=== PATIENT | male | born 1975 | race Caucasian/White ===

== ENCOUNTER 2020-12-26 12:50 | Inpatient (IN) | payer OTHER, SELFPAY ==
[2020-12-26] VITALS (8 sets, daily range): BP systolic 132–153; BP diastolic 103–116; PULSE 84–140; RESP 16–44; TEMP 36.4–37.7; O2SAT 86–94; BMI 36.7
--- NOTE | 2020-12-26 | FLU_PTH ---
PATIENT: RANDELL FULLER LOC: MS2 U#:[id number] AGE/SX: 45/M ROOM: [facility] [place] RE12/26/[address]: Dr. Ar Reilly MD : 1975 BED: 1 DIS: 01/07/2021 SPEC #: [id number] RECD: 12/27/20 11:40 STATUS: PEDRITO HENRY #: [id number] KEVYN: 12/26/20 00:[address]: Ar Reilly DEPT: CYTOLOGY RECD BY: Isaac Aj Tissues: Kidney, NOS Procedures: Special Stain Group II Surgery Specimen Level IV Cytospin Fluid HEADER OPERATION: Not noted PRE-OP DIAGNOSIS: Infected renal mass TISSUE SUBMITTED: Kidney fluid for cytology DIAGNOSIS CYTOLOGY Kidney fluid for cytology (cytospin and cell block): Negative for malignant cells. Bloody specimen. See comment. JAQUAN:hector 12/28/2020 COMMENT Viable cells are not identified. Correlation with clinical, radiologic findings and appropriate follow up are necessary. CYTOLOGY STUDY Slides are reviewed. CYTOLOGY GROSS Received is 55 ml of dark red cloudy fluid labeled with the patient's name and and designated per the requisition as Kidney. Submitted for cytology preparation including cell block. / hector 12/27/2020 TC:5 CPT: 30581, 07391
--- NOTE | 2020-12-26 11:51 | PCS.PANDOC ---
PANDEMIC DOCUMENTATION INITIATED: Date: 10/09/2020 Time: 190
[2020-12-26] MEDS: 0.9% Saline Lock 10 ML Syringe IV ×3 (12:36→21:02)
[2020-12-26] MEDS: Morphine 2 MG/ML Syringe IV ×5 (12:36→23:08)
--- NOTE | 2020-12-26 12:52 | PCM.HP.STD ---
HPI - General General Date of Admission: 12/26/20 HPI Narrative 45-year-old male who presents with severe right upper quadrant pain structure CT scan was done that demonstrates a very large cystic putting pressure on the kidney and the liver. On palpation of his abdomen he is got pain right where that cyst is. Does have a very high elevated white blood count was in extreme pain this morning. He was admitted to the hospital for further management regarding this. cystic mass [facility] Medical History (Updated 12/26/20 @ 12:[address] Ar Reilly MD) Migraines Home Medications NK 12/26/20 [History Last Taken Unknown] Allergy/AdvReac Type Severity Reaction Status Date / Time No Known Allergies Allergy Verified 12/26/20 11:50 Social History Smoking Status: Never smoker ROS Constitutional Constitutional: Denies chills, fever(s) or malaise Eyes Eyes: Denies blurry vision or change in vision ENT HEENT: Reports none Cardiovascular Cardiovascular: Denies chest pain or palpitations Respiratory/Chest Respiratory/Chest: Denies cough or shortness of breath with exertion Gastrointestinal Gastrointestinal: Denies abdominal pain, constipation or diarrhea Musculoskeletal Musculoskeletal: Denies back pain, joint stiffness or joint swelling Integumentary Integumentary: Denies dry skin, jaundice, lesions or rash Neurologic Neurologic: Denies confusion, syncope or weakness Psychiatric Psychiatric: Reports none; Denies anxiety or depression Endocrine Endocrinology: Denies excessive sweating, fatigue or flushing Hematologic/Lymphatic Hematologic/Lymphatic: Denies anemia, easy bleeding or easy bruising Vital Signs Vital Signs Vital Signs: 12/26/20 11:59 Temperature 97.6 F L Temperature Source Oral Pulse Rate 84 Respiratory Rate 16 Blood Pressure 132/106 H Blood Pressure Mean 114 Blood Pressure Source Monitor Blood Pressure Position Semi-Fowlers Blood Pressure Location Left Arm Pulse Ox 94 Oxygen Delivery Method Room Air Weight Weight: 116.12 kg Body Mass Index (BMI) 36.7 Physical Exam Const alert and oriented x3 General Appearance: cooperative HEENT normocephalic, head/scalp atraumatic, EAC's normal and TM's normal bilaterally Eyes PERRL and EOMs intact bilaterally Pupil: sluggish Neck no lymphadenopathy, supple and no JVD General: trachea midline Lymph Lymphatic: no lymphadenopathy noted, lymphedema and lymphadenopathy Resp normal respiratory effort, normal air movement and clear to auscultation bilaterally Cardio regular rate, regular rhythm and peripheral pulses 2+ throughout GI soft to palpation and non-distended GI Narrative: Pain on palpation to the right abdomen Extremity normal capillary refill and no clubbing, cyanosis or edema General Extremity: no tenderness to palpation of joints or extremities Skin no rashes or lesions noted General Skin Exam: turgor normal Lesions: no lesions Rashes: no rashes Neuro CN's II-XII intact bilaterally Speech: speech normal Motor Exam: strength 5/5 throughout; Negative for general weakness Psych thought process normal, cooperative and affect normal Appearance: appropriate Assessment & Plan Assessment/Plan (1) Cystic kidney disease: PLAN: Plan is to keep him n.p.o. he will go for procedure today for interventional radiology for a CT-guided drainage of this large cystic mass in his right kidney to me this appears to be a benign cyst. We will send the urine from that mass for cytology and culture. And then once we get this mass decompressed with drainage and I have asked the radiology to place a pigtail catheter in it then we can always plan for surgical removal of this mass in a different setting. N.p.o. for procedure he can have regular diet after procedures done possible he may need to have the procedure done tomorrow if radiology is not available.
[2020-12-26 14:17] LABS: Hemoglobin 13.5 g/dL (13.0-16.5); Mean Corp Hgb Conc 32.9 g/dL (32-36); Mean Corpuscular Hgb 27.5 pg (27.0-32.0); Mean Corpuscular Volume 83.5 fL (80-94); Mean Platelet Vol. 10.7 fl (6.2-12.0); Platelet Count 234 K/mm3 (150-450); RBC Distribution Width CV 14.6 % (11.6-14.6); RBC Distribution Width SD 44.3 fl (35.1-43.9); Red Blood Count 4.91 M/mm3 (4.6-6.2); White Blood Count 27.2 K/mm3 (4.4-11.0)
[2020-12-26 14:30] LABS: International Normalized Ratio 1.6; Prothrombin Time (Protime)PT. 18.1 SECONDS (11.7-14.9)
[2020-12-26 14:36] LABS: Anion Gap 6 (5-15); BUN 25 mg/dL (7-18); BUN/Creat Ratio 14.5 RATIO (10-20); Calcium,Total 8.2 mg/dL (8.5-10.1); Chloride 109 mmol/L (98-107); Creatinine, Serum 1.73 mg/dL (0.70-1.30); EST Glomerular Filtration Rate 45 mL/min (>60); Est Glom Filt Rate - Afr Amer 55 mL/min (>60); Estimated Creatinine Clearance 55.09 ml/min; Glucose 173 mg/dL (74-106); Potassium 3.6 mmol/L (3.5-5.1); Sodium Level 138 mmol/L (136-145)
[2020-12-26] MEDS: 0.9% Normal Saline 1,000 ML 125 ML IV ×2 (15:31→23:54)
[2020-12-26] MEDS: Ceftriaxone 1 GM/50 ML BAG IV (21:54)
[2020-12-26] MEDS: Acetaminophen 500 MG Tablet PO (22:53)
[2020-12-26 23:16] LABS: Lactic Acid 3.5 mmol/L (0.4-1.9)
--- NOTE | 2020-12-26 23:26 | NURSING ---
DR FRIEND CALLED AND NOTIFIED OF THE PTS VS 153/116, 139, 94% ON 4L, 99.6, RESP 40, VERY SHALLOW ONLY ABLE TO GET THE IS UP TO 200, LUNGS DIMINISHED OCCATIONAL EXP WHEEZE. PT IS RATING HIS PAIN A 7/10, MORPHINE GIVEN WITH NO RESULTS, TYLENOL 500MG GIVEN. LACTIC 3.5, DR ORDERED TO GIVE DILAUDID FOR PAIN. DR DID NOT WANT THE HOSPITALIST CONSULTED, NO TELE ORDERED.
--- NOTE | 2020-12-26 23:37 | NURSING ---
DR FRIEND CALLED BACK AND NOW IS COMING IN TO DO THE CT RIGHT NOW, CT CALLED, INSURANCE ACCOUNT SPECIALIST CALLED.
--- NOTE | 2020-12-26 23:47 | PCM.PN.GU ---
Subjective Subjective pt presented with an infected renal cyst v large on outside CT scan on admission I requested a CT drainage of the cysts from radiology at noon, I spoke to head of radiology and told him it was stat and ordered stat. He said he was very busy and then later nurse called me and said it was scheduled for tomorrow at 8am, this eving the patient is now septic, tachycardia, we have started antibitoics with rocephin, he is on oxygen, plan for immediate intervention, will take the pateint myself to radiology to place a drain in kindey and nephrostomy tube as I don't think I should wait till the morning when radiology comes in. Objective Data Objective Data Vital Signs: Vital Signs Temp Pulse Resp BP Pulse Ox 99.5 F H 140 H 40 H 153/116 H 94 12/26/20 23:39 12/26/20 23:40 12/26/20 23:40 12/26/20 23:39 12/26/20 23:40 Oxygen Flow Rate (L/min) 4 Oxygen Delivery Method Nasal Cannula Weight: 116.12 kg Body Mass Index (BMI) 36.7 Intake & Output: Intake and Output for Last 24 Hours 12/24/20 12/25/20 12/26/20 23:59 23:59 23:59 Intake Total 70 / 70 Output Total 125 / 125 Balance -55 / -55 Lab / Micro Data Result Diagrams: 12/26/20 14:06 12/26/20 14:06 Labs: Laboratory Results - last 24 hr 12/26/20 14:06: WBC 27.2 H, RBC 4.91, Hgb 13.5, Hct 41.0, MCV 83.5, MCH 27.5, MCHC 32.9, RDW Std Deviation 44.3 H, RDW Coeff of Colin 14.6, Plt Count 234, MPV 10.7 12/26/20 14:06: PT 18.1 H, INR 1.6 12/26/20 14:06: Sodium 138, Potassium 3.6, Chloride 109 H, Carbon Dioxide 23.0, Anion Gap 6, BUN 25 H, Creatinine 1.73 H, Estim Creat Clear Calc 55.09, Est GFR (MDRD) Af Amer 55 L, Est GFR (MDRD) Non-Af 45 L, BUN/Creatinine Ratio 14.5, Glucose 173 H, Calcium 8.2 L 12/26/20 22:16: Lactic Acid 3.5 H* Physical Exam Const alert and oriented x3 General Appearance: cooperative HEENT normocephalic, head/scalp atraumatic, EAC's normal and TM's normal bilaterally Eyes PERRL and EOMs intact bilaterally Pupil: sluggish Neck no lymphadenopathy, supple and no JVD General: trachea midline Lymph Lymphatic: no lymphadenopathy noted, lymphedema and lymphadenopathy Resp normal respiratory effort, normal air movement and clear to auscultation bilaterally Cardio regular rate, regular rhythm and peripheral pulses 2+ throughout GI soft to palpation, non-tender and non-distended Extremity normal capillary refill and no clubbing, cyanosis or edema General Extremity: no tenderness to palpation of joints or extremities Skin no rashes or lesions noted General Skin Exam: turgor normal Lesions: no lesions Rashes: no rashes Neuro CN's II-XII intact bilaterally Speech: speech normal Motor Exam: strength 5/5 throughout; Negative for general weakness Psych thought process normal, cooperative and affect normal Appearance: appropriate Assessment & Plan Assessment/Plan (1) Cystic kidney disease: PLAN: plan for CT guided drainage stat now in interventional radiology. (2) Sepsis: PLAN: blood culture and urine cultures drawn, on broadspectrum antibiotics hemodynamical hyperdyanamic but stable.
[2020-12-26] MEDS: Lidocaine 1% (20 ml mdv) 20 ML Vial INFILT (23:54)
[2020-12-26] MEDS: HYDROmorphone 1 MG/ML Syringe IV (23:56)
[2020-12-27] VITALS (20 sets, daily range): BP systolic 103–165; BP diastolic 62–100; PULSE 99–133; RESP 16–28; TEMP 36.5–38.4; O2SAT 4–96
--- NOTE | 2020-12-27 01:00 | OP.PCM_ITS ---
Report of Operation Date of Procedure: 12/27/20 Pre-Operative Diagnosis: Large right cystic mass Post-Operative Diagnosis: Large right cystic mass Surgery/Procedure Performed:: CT-guided placement of nephrostomy tube and drainage of fluid from mass Description of Surgical Findings:: Patient was taken down to the CAT scan department he was placed supine on the CAT scan table we then did a CAT scan to look at the kidney I used fluoroscopic markers I then identified the marker that would go down to drain this large fluid mass he been having difficulty with breathing and's extreme pain on the right side I then used a 18-gauge Chiba n eedle advanced to down and then got into the mass and immediately drained brownish-like fluid from the cystic mass appeared to be old hemosiderin probably an old bleeding into the cyst card because a large cyst I drained almost a liter and then left the nephrostomy tube in the fluid pocket and will leave this to gravity drainage. He has a very high white blood count appears septic we did start on antibiotics just drained the fluid will send it for culture. Patient tolerated procedure well. Surgeon: miguel Type of Anesthesia: General Drains: 8 fr nephrostomy tube Admit VTE Documentation VTE Present on Admission: No VTE Mechan Device Prophylaxis: SCD's
[2020-12-27] MEDS: HYDROmorphone 1 MG/ML Syringe IV ×7 (01:10→18:30)
[2020-12-27 02:26] LABS: Reflex Lactate? Y
[2020-12-27 03:02] LABS: Absolute Lymphocyte Count 0.46 X10^3/uL (0.83-4.51); Absolute Neutrophil Count 23.1 X10^3/uL (2.0-7.7); Basophil# 0.18 X10^3/uL; Basophil% 0.7 % (0-1); Hematocrit 44.4 % (40-54); Hemoglobin 14.1 g/dL (13.0-16.5); Lymphocyte # 0.46 X10^3/ul (0.83-4.51); Lymphocyte % 1.7 % (19-41); Mean Corp Hgb Conc 31.8 g/dL (32-36); Mean Corpuscular Hgb 27.4 pg (27.0-32.0); Mean Corpuscular Volume 86.4 fL (80-94); Mean Platelet Vol. 10.9 fl (6.2-12.0); Monocyte# 1.82 X10^3/uL; Monocyte% 6.8 % (0-10); NRBC Flagged by Analyzer 0 % (0-5); Neutrophil # 23.05 X10^3/uL (2.7-7.7); Neutrophil % 86.4 % (47-70); POSITIVE DIFFERENTIAL YES; POSITIVE MORPHOLOGY YES; Platelet Count 231 K/mm3 (150-450); RBC Distribution Width CV 15.1 % (11.6-14.6); RBC Distribution Width SD 47.9 fl (35.1-43.9); Red Blood Count 5.14 M/mm3 (4.6-6.2); White Blood Count 26.7 K/mm3 (4.4-11.0)
[2020-12-27 03:36] LABS: Anion Gap 10 (5-15); BUN 40 mg/dL (7-18); BUN/Creat Ratio 18.4 RATIO (10-20); Calcium,Total 7.6 mg/dL (8.5-10.1); Chloride 112 mmol/L (98-107); Creatinine, Serum 2.17 mg/dL (0.70-1.30); EST Glomerular Filtration Rate 35 mL/min (>60); Est Glom Filt Rate - Afr Amer 42 mL/min (>60); Estimated Creatinine Clearance 43.92 ml/min; Glucose 145 mg/dL (74-106); Potassium 4.6 mmol/L (3.5-5.1); Sodium Level 142 mmol/L (136-145)
[2020-12-27 03:41] LABS: Differential Indicated SCAN CRITERIA MET
[2020-12-27 04:14] LABS: Lactic Acid 1.5 mmol/L (0.4-1.9)
--- NOTE | 2020-12-27 04:26 | RAD_ITS ---
STUDY: X-RAY CHEST REASON FOR EXAM: Male, 45 years old. WHEEZING AND CRACKLES TECHNIQUE: PA and lateral views of the chest. COMPARISON: Due to technical limitations the prior CT scan chest December 26, 2020 is unavailable. FINDINGS: The lungs are underexpanded interstitial markings are mildly prominent. The lungs are clear and expanded. There is no demonstrated pleural abnormality. Normal size heart. Normal mediastinum and viri. Normal visualized pulmonary arteries. Normal visualized aortic arch and descending thoracic aorta. There are diffuse degenerative changes of the visualized thoracic spine. Normal visualized ribs, clavicles, and shoulders. The partially visualized mildly distended loops of small bowel. There is a partially visualized right side drain. RAD/Chest PA and Lateral IMPRESSION: Mild central vascular congestion atelectasis. Mild ileus. Electronically Signed: Adriana Billings MD at 5:07 EDT Tel , Service support ,
--- NOTE | 2020-12-27 04:32 | NURSING ---
DR FRIEND CALLED AND NOTIFIED OF THE INCREASE WORK OF BREATHING, CRACKLES TO THE RIGHT MID, LOWER LOBE, AND EXP WHEEZING. HE ORDERED A CHEST XRAY, BREATHING TREATMENT AND HOSPITALIST CONSULT.
[2020-12-27 05:22] LABS: Anisocytosis 2+
--- NOTE | 2020-12-27 05:45 | CON.PCM.HO_ITS ---
Assessment & Plan Assessment/Plan (1) Cystic kidney disease: (2) Leukocytosis: QUALIFIERS: Leukocytosis type: unspecified Qualified Code(s): D72.829 - Elevated white blood cell count, unspecified (3) MIKAYLA (acute kidney injury): (4) Acute respiratory failure with hypoxia: PLAN: 1. Large right renal cyst * May be due to bleeding into a cyst but cannot rule out mass nor infection at this time * status post drainage with removal of roughly 1200 cc * Sent for culture and further analysis * Has nephrostomy tube in place * Further management per urology * Follow up studies * Empiric broad spectrum abx 2. Leukocytosis * was elevated at 31.6 at outside hospital, down to 26.7 here * No baseline to compare to but suspected that this is acute * Blood cultures have been drawn, culture of the fluid pending, urine culture pending * Check urinalysis * qSOFA score is only 1 therefore patient is not septic at this time * follow up cultures, * will broaden antibiotics for now. deescalate based on culture results * check UA * COVID 19 rapid negative. 3. MIKAYLA * suspected as not baseline labs available * IVF * monitor * consider nephrology consult if worsens * Avoid nephrotoxic agents 4. Acute hypoxic respiratory failure * Reviewed CT imaging and showed no obvious infiltrate. * Patient had a pulse ox of 86% on room air and is currently on 6 L. * Review of chest x-ray shows perhaps some atelectasis so we will add incentive spirometer * But his right hemidiaphragm is still markedly elevated compared to the left and this is likely due to the large fluid collection on his right kidney * Consider repeat imaging of his abdomen if his respiratory status does get worse or if his abdominal exam and distention gets worse. 5. VTE prophylaxis with SCDs Thank you for the consult. The Hospitalist service will follow. HPI Consult Data Date of Consult: 12/27/20 HPI Narrative Reason for Consultation: MED MGMT HPI Narrative: RANDELL FULLER, is a 45 M who presents with 2 days of fever and 1 day of abdominal pain. Patient presented to outside emergency room and was noted to lactate of 3, white count of 31,[address] showed a large multicystic right renal mass measuring 25 x 20.[address] Reilly accept the patient and was transferred to the service at [facility]. Patient underwent CT-guided drainage of the mass removing roughly 12 00 cc of brown fluid that appeared to be old hemosiderin. Concern was from old bleeding from the cyst. Patient has been on oxygen requiring 6 L, has been tachypneic as well as tachycardic. Concern was for underlying sepsis. [facility] Medical History (Updated 12/27/20 @ 06:[address] Kemal Jackson DO) Migraines Medical History no medical history no medical history Home Medications NK 12/26/20 [History Last Taken Unknown] Allergy/AdvReac Type Severity Reaction Status Date / Time No Known Allergies Allergy Verified 12/26/20 11:50 Family History (Updated 12/27/20 @ 05:[address] Kemal Jackson DO) Grandmother Cancer Other Diabetes Social History (Updated 12/27/20 @ 05:[address] Kemal Jackson DO) Smoking Status: Never smoker alcohol intake: current alcohol intake frequency: a few times a month ROS ROS Narrative Shortness of breath. Coughing up black phlegm. Abdominal pain. No dysuria. Denies hematuria. Abdominal pain though in better post drainage. All review of systems were negative except as mentioned above in the history of present illness and the other review of systems. Physical Exam Const alert, no apparent distress and average body habitus General Appearance: cooperative HEENT normocephalic, head/scalp atraumatic, hearing grossly normal bilaterally and moist oral mucous membranes Neck no lymphadenopathy and no JVD Resp normal respiratory effort and no retractions Resp Narrative: Bilateral wheezes Cardio regular rate, regular rhythm, S1 normal heart sound and S2 normal heart sound GI normal to inspection, nondistended, normoactive bowel sounds and non-distended GI Narrative: Diffusely tender. Nephrostomy tube with dark brown fluid. Extremity normal to inspection and no clubbing, cyanosis or edema Skin no rashes or lesions noted Neuro no sensory deficits noted Sensorium / Orientation: awake and alert Speech: speech normal Psych affect normal Lab / Micro Data Attestation: I reviewed the patient's lab results. Result Diagrams: 12/27/20 02:50 12/27/20 02:50 Labs: Laboratory Results - last 24 hr 12/26/20 14:06: WBC 27.2 H, RBC 4.91, Hgb 13.5, Hct 41.0, MCV 83.5, MCH 27.5, MCHC 32.9, RDW Std Deviation 44.3 H, RDW Coeff of Colin 14.6, Plt Count 234, MPV 10.7 12/26/20 14:06: PT 18.1 H, INR 1.6 12/26/20 14:06: Sodium 138, Potassium 3.6, Chloride 109 H, Carbon Dioxide 23.0, Anion Gap 6, BUN 25 H, Creatinine 1.73 H, Estim Creat Clear Calc 55.09, Est GFR (MDRD) Af Amer 55 L, Est GFR (MDRD) Non-Af 45 L, BUN/Creatinine Ratio 14.5, Glucose 173 H, Calcium 8.2 L 12/26/20 22:16: Lactic Acid 3.5 H* 12/27/20 02:50: WBC 26.7 H, RBC 5.14, Hgb 14.1, Hct 44.4, MCV 86.4, MCH 27.4, MCHC 31.8 L, RDW Std Deviation 47.9 H, RDW Coeff of Colin 15.1 H, Plt Count 231, MPV 10.9, Immature Gran % (Auto) 4.400 H, Neut % (Auto) 86.4 H, Lymph % (Auto) 1.7 L, [place] % (Auto) 6.8, Eos % (Auto) 0.0, Baso % (Auto) 0.7, Absolute Neuts (auto) 23.1 H, Absolute Lymphs (auto) 0.46 L, Nucleated RBC % 0, Diff Path Review May foll, Anisocytosis 2+ 12/27/20 02:50: Sodium 142, Potassium 4.6, Chloride 112 H, Carbon Dioxide 20.0 L , Anion Gap 10, BUN 40 H, Creatinine 2.17 H, Estim Creat Clear Calc 43.92, Est GFR (MDRD) Af Amer 42 L, Est GFR (MDRD) Non-Af 35 L, BUN/Creatinine Ratio 18.4, Glucose 145 H, Calcium 7.6 L 12/27/20 02:50: Lactic Acid 1.5 Micro: Microbiology 12/27/20 01:30 Nasal Secretion SARS-CoV-2 Antigen (Rapid) - Final 12/27/20 01:10 Fluid - Other Gram Stain - Preliminary Radiology Impression Chest X-Ray 12/27/20 04:26 IMPRESSION: Mild central vascular congestion atelectasis. Mild ileus. Electronically Signed: Adriana Billings MD at 5:07 EDT Tel , Service support , Charges/Coding Visit Charges Inpatient E&M: 05987 Init Hosp L3
[2020-12-27] MEDS: Piperacil/Tazobactam 3.375 GM/50 ML ML IV ×3 (06:22→22:22)
[2020-12-27] MEDS: 0.9% Saline Lock 10 ML Syringe IV (06:27)
[2020-12-27] MEDS: Morphine 2 MG/ML Syringe IV ×2 (06:27→11:06)
[2020-12-27] MEDS: 0.9% Normal Saline 1,000 ML 125 ML IV ×2 (06:42→15:20)
--- NOTE | 2020-12-27 06:53 | PCM.RX.CS ---
Consult Pharmacy has been consulted to manage selected antiobiotic: Vancomycin Type of Consult: New start Labs: Sodium 142 mmol/L (136-145) 12/27/20 02:50 Potassium 4.6 mmol/L (3.5-5.1) 12/27/20 02:50 Chloride 112 mmol/L (98-107) H 12/27/20 02:50 Carbon Dioxide 20.0 mmol/L (21.0-32.0) L 12/27/20 02:50 Anion Gap 10 (5-15) 12/27/20 02:50 BUN 40 mg/dL (7-18) H 12/27/20 02:50 Creatinine 2.17 mg/dL (0.70-1.30) H 12/27/20 02:50 Est GFR (MDRD) Af Amer 42 mL/min (>60) L 12/27/20 02:50 Est GFR (MDRD) Non-Af 35 mL/min (>60) L 12/27/20 02:50 BUN/Creatinine Ratio 18.4 RATIO (10-20) 12/27/20 02:50 Glucose 145 mg/dL (74-106) H 12/27/20 02:50 Microbiology: Microbiology 12/27/20 01:30 Nasal Secretion SARS-CoV-2 Antigen (Rapid) - Final 12/27/20 01:10 Fluid - Other Gram Stain - Preliminary Weight used for dosin kg Estimated Creatinine Clearance: 44ML/MIN Goal Trough: 15-20 mcg/mL Pharmacy Plan for Drug Dosing: Give initial loading dose (25mg/kg) of 2000mg IV x1, then continue with 1000mg IV q12h. Will check a trough level before the 4th total dose. Pharmacy Service will continue to monitor and adjust dosing as required. Follow-Up Labs: Trough Vancomycin Labs to be done on [date and time ordered]: 12/28/20 18:30
--- NOTE | 2020-12-27 07:17 | PCM.PN.GU ---
Subjective Subjective 45-year-old male presented to the hospital with severe pain in the right side very large cyst taken to radiology last night because of severe pressure I put a drain in and drained out about 1400 cc of darkish old blood or hemosiderin looking fluid the drain is in place would not surprise not draining too much of fluid a super thick. White count is down to 26,000 has a low-grade fever he is on Zosyn and also ceftriaxone he may have a developing slowly a pneumonia he is on oxygen. He looks more comfortable this morning states he feels the pressure is off a little bit but not draining really well denies any surgical intervention. At this plan I plan to continue with IV antibiotics await culture results we will do a bowel prep on and will add him on for Friday for laparoscopic cyst decortication and removal of this cyst which I think may possibly have infection. Objective Data Objective Data Vital Signs: Vital Signs Temp Pulse Resp BP Pulse Ox 98.1 F 102 H 22 H 118/77 94 12/27/20 05:29 12/27/20 05:29 12/27/20 05:29 12/27/20 05:29 12/27/20 05:29 Oxygen Flow Rate (L/min) 6 Oxygen Delivery Method Nasal Cannula Weight: 116.12 kg Body Mass Index (BMI) 36.7 Intake & Output: Intake and Output for Last 24 Hours 12/25/20 12/26/20 12/27/20 23:59 23:59 23:59 Intake Total 1070 / 1120 1033.33 / 1033.33 Output Total 125 / 125 1300 / 1300 Balance 945 / 995 -266.67 / -266.67 Lab / Micro Data Result Diagrams: 12/27/20 02:50 12/27/20 02:50 Labs: Laboratory Results - last 24 hr 12/26/20 14:06: WBC 27.2 H, RBC 4.91, Hgb 13.5, Hct 41.0, MCV 83.5, MCH 27.5, MCHC 32.9, RDW Std Deviation 44.3 H, RDW Coeff of Colin 14.6, Plt Count 234, MPV 10.7 12/26/20 14:06: PT 18.1 H, INR 1.6 12/26/20 14:06: Sodium 138, Potassium 3.6, Chloride 109 H, Carbon Dioxide 23.0, Anion Gap 6, BUN 25 H, Creatinine 1.73 H, Estim Creat Clear Calc 55.09, Est GFR (MDRD) Af Amer 55 L, Est GFR (MDRD) Non-Af 45 L, BUN/Creatinine Ratio 14.5, Glucose 173 H, Calcium 8.2 L 12/26/20 22:16: Lactic Acid 3.5 H* 12/27/20 02:50: WBC 26.7 H, RBC 5.14, Hgb 14.1, Hct 44.4, MCV 86.4, MCH 27.4, MCHC 31.8 L, RDW Std Deviation 47.9 H, RDW Coeff of Colin 15.1 H, Plt Count 231, MPV 10.9, Immature Gran % (Auto) 4.400 H, Neut % (Auto) 86.4 H, Lymph % (Auto) 1.7 L, [place] % (Auto) 6.8, Eos % (Auto) 0.0, Baso % (Auto) 0.7, Absolute Neuts (auto) 23.1 H, Absolute Lymphs (auto) 0.46 L, Nucleated RBC % 0, Diff Path Review May foll, Anisocytosis 2+ 12/27/20 02:50: Sodium 142, Potassium 4.6, Chloride 112 H, Carbon Dioxide 20.0 L, Anion Gap 10, BUN 40 H, Creatinine 2.17 H, Estim Creat Clear Calc 43.92, Est GFR (MDRD) Af Amer 42 L, Est GFR (MDRD) Non-Af 35 L, BUN/Creatinine Ratio 18.4, Glucose 145 H, Calcium 7.6 L 12/27/20 02:50: Lactic Acid 1.5 Micro: Microbiology 12/27/20 01:30 Nasal Secretion SARS-CoV-2 Antigen (Rapid) - Final 12/27/20 01:10 Fluid - Other Gram Stain - Preliminary Radiography Diagnostic Testing: Radiology Impression Chest X-Ray 12/27/20 04:26 IMPRESSION: Mild central vascular congestion atelectasis. Mild ileus. Electronically Signed: Adriana Billings MD at 5:07 EDT Tel , Service support , Physical Exam Const alert and oriented x3 General Appearance: cooperative HEENT normocephalic, head/scalp atraumatic, EAC's normal and TM's normal bilaterally Eyes PERRL and EOMs intact bilaterally Pupil: sluggish Neck no lymphadenopathy, supple and no JVD General: trachea midline Lymph Lymphatic: no lymphadenopathy noted, lymphedema and lymphadenopathy Resp normal respiratory effort, normal air movement and clear to auscultation bilaterally Cardio regular rate, regular rhythm and peripheral pulses 2+ throughout GI soft to palpation, non-tender and non-distended Narrative: insulation power unit tender in the right upper quadrant. Extremity normal capillary refill and no clubbing, cyanosis or edema General Extremity: no tenderness to palpation of joints or extremities Skin no rashes or lesions noted General Skin Exam: turgor normal Lesions: no lesions Rashes: no rashes Neuro CN's II-XII intact bilaterally Speech: speech normal Motor Exam: strength 5/5 throughout; Negative for general weakness Psych thought process normal, cooperative and affect normal Appearance: appropriate Assessment & Plan Assessment/Plan (1) Leukocytosis: QUALIFIERS: Leukocytosis type: unspecified Qualified Code(s): D72.829 - Elevated white blood cell count, unspecified (2) MIKAYLA (acute kidney injury): (3) Sepsis: (4) Cystic kidney disease: PLAN: Continue with antibiotics, regular diet as tolerated today, bowel prep tomorrow, and abdomen for surgery this Friday for laparoscopic cyst decortication.
[2020-12-27] MEDS: Albuterol 2.5 MG/3 ML VIAL.NEB. INHALATION ×4 (07:24→23:55)
--- NOTE | 2020-12-27 08:13 | PN.HOSP_ITS ---
Subjective Subjective Patient is a 45-year-old male gentleman admitted with right-sided pain. Patient was found to have a large right renal cyst for which he underwent CT-guided percutaneous drainage with 1400 cc of dark old blood/hemosiderin like fluid drained. He was also found to have leukocytosis with WBC count of twenty 6.7K subsequently placed on broad-spectrum antibiotic therapy Objective Data Objective Data Vital Signs: Vital Signs Temp Pulse Resp BP Pulse Ox 97.7 F L 99 16 116/78 96 12/27/20 07:18 12/27/20 07:24 12/27/20 07:24 12/27/20 07:18 12/27/20 07:18 Oxygen Flow Rate (L/min) 6 Oxygen Delivery Method Nasal Cannula Weight: 116.12 kg Body Mass Index (BMI) 36.7 Intake & Output: Intake and Output for Last 24 Hours 12/25/20 12/26/20 12/27/20 23:59 23:59 23:59 Intake Total 1070 / 1120 1033.33 / 1033.33 Output Total 125 / 125 1300 / 1300 Balance 945 / 995 -266.67 / -266.67 Lab / Micro Data Result Diagrams: 12/27/20 02:50 12/27/20 02:50 Labs: Laboratory Results - last 24 hr 12/26/20 14:06: WBC 27.2 H, RBC 4.91, Hgb 13.5, Hct 41.0, MCV 83.5, MCH 27.5, MCHC 32.9, RDW Std Deviation 44.3 H, RDW Coeff of Colin 14.6, Plt Count 234, MPV 10.7 12/26/20 14:06: PT 18.1 H, INR 1.6 12/26/20 14:06: Sodium 138, Potassium 3.6, Chloride 109 H, Carbon Dioxide 23.0, Anion Gap 6, BUN 25 H, Creatinine 1.73 H, Estim Creat Clear Calc 55.09, Est GFR (MDRD) Af Amer 55 L, Est GFR (MDRD) Non-Af 45 L, BUN/Creatinine Ratio 14.5, Glucose 173 H, Calcium 8.2 L 12/26/20 22:16: Lactic Acid 3.5 H* 12/27/20 02:50: WBC 26.7 H, RBC 5.14, Hgb 14.1, Hct 44.4, MCV 86.4, MCH 27.4, MCHC 31.8 L, RDW Std Deviation 47.9 H, RDW Coeff of Colin 15.1 H, Plt Count 231, MPV 10.9, Immature Gran % (Auto) 4.400 H, Neut % (Auto) 86.4 H, Lymph % (Auto) 1.7 L, [place] % (Auto) 6.8, Eos % (Auto) 0.0, Baso % (Auto) 0.7, Absolute Neuts (auto) 23.1 H, Absolute Lymphs (auto) 0.46 L, Nucleated RBC % 0, Diff Path Review May foll, Anisocytosis 2+ 12/27/20 02:50: Sodium 142, Potassium 4.6, Chloride 112 H, Carbon Dioxide 20.0 L , Anion Gap 10, BUN 40 H, Creatinine 2.17 H, Estim Creat Clear Calc 43.92, Est GFR (MDRD) Af Amer 42 L, Est GFR (MDRD) Non-Af 35 L, BUN/Creatinine Ratio 18.4, Glucose 145 H, Calcium 7.6 L 12/27/20 02:50: Lactic Acid 1.5 Micro: Microbiology 12/27/20 01:30 Nasal Secretion SARS-CoV-2 Antigen (Rapid) - Final 12/27/20 01:10 Fluid - Other Gram Stain - Preliminary Radiography Diagnostic Testing: Radiology Impression Chest X-Ray 12/27/20 04:26 IMPRESSION: Mild central vascular congestion atelectasis. Mild ileus. Electronically Signed: Adriana Billings MD at 5:07 EDT Tel , Service support , Physical Exam Narrative GENERAL: cooperative HEENT: Atraumatic; EYES; Anicteric, Normal Conjunctiva NECK; supple, normal thyroid, RESPIRATORY: Diminished to auscultation CARDIOVASCULAR: Regular S1 S2, GI: soft, normoactive bowel sounds, : No Renal angle tenderness; nephrostomy tube right flank EXTREMITIES: No edema, no clubbing, MUSCULOSKELETAL: no muscle waisting NEURO: Awake; no lateralizing signs. SKIN: No Rash PSYCH; Flat affect Const General Appearance: cooperative HEENT normocephalic and hearing grossly normal bilaterally Resp Resp Narrative: Bilateral wheezes GI GI Narrative: Diffusely tender. Nephrostomy tube with dark brown fluid. Assessment & Plan Assessment/Plan (1) Cystic kidney disease: (2) Leukocytosis: QUALIFIERS: Leukocytosis type: unspecified Qualified Code(s): D72.829 - Elevated white blood cell count, unspecified (3) MIKAYLA (acute kidney injury): (4) Acute respiratory failure with hypoxia: PLAN: Patient is a 45-year-old male gentleman admitted with right-sided pain. Patient was found to have a large right renal cyst for which he underwent CT-guided percutaneous drainage with 1400 cc of dark old blood/hemosiderin like fluid drained. He was also found to have leukocytosis with WBC count of twenty 6.7K subsequently placed on broad-spectrum antibiotic therapy 1. Large right renal cyst ?Infectious versus malignancy. Patient underwent percutaneous CT-guided drainage with nephrostomy tube left in place. Patient was admitted by urology. Plan is for patient to undergo laparoscopic cyst decortication and removal of cyst on 12/29/2020 2. Leukocytosis ?Thought to be secondary to above currently on broad-spectrum antibiotic therapy cultures sent 3. Renal failure ?Baseline creatinine unknown kidney function on admission was 1.73 up to 2.17 currently on IV fluid with daily BMPs ordered 4. Acute hypoxic respiratory failure ?Imaging studies obtained did not demonstrate any infiltrate patient was however significantly hypoxic with oxygen saturation 86% was placed on supplemental oxygen 6 L. Also did encourage the use of incentive spirometry 6. Obesity with BMI of 36.7 ?Weight loss advised 7. DVT prophylaxis -Did encourage early ambulation a low molecular weight heparin if no contraindication Start time spent on extended care, spent on reevaluation patient reevaluating diagnostic data initial H&P as well as management orders and subsequent labs ordered; 5-minute Charges/Coding Procedures Hospitalists Procedures: [id number] Prolonged InPt Service; first hour
--- NOTE | 2020-12-27 08:30 | CT_ITS ---
STUDY: CT GUIDED RENAL CYST DRAINAGE RIGHT REASON FOR EXAM: Male, 45 years old. large right renal cyst, -- send urine for culture and cytology, place 8fr RADIATION DOSAGE (If Supplied By Facility): CTDIvol = ( 12.9 ) mGy, DLP = ( 1436.17 ) mGycm. Individualized dose optimization techniques were used for this CT.? TECHNIQUE: The patient was in the prone position. An 8 Scottish all-purpose drainage catheter was placed into the large right renal cyst. COMPARISON: None. FINDINGS: CT/CT Guidance Abscess Drg w/Cath IMPRESSION: Successful drainage of a large cyst in the upper pole of the right kidney utilizing an 8 Scottish all-purpose drainage catheter. Electronically Signed: Tom Rivero MD at 8:32 EDT , Service support ,
--- NOTE | 2020-12-27 11:55 | CASEMGMT ---
RN KIRA Face to Face with patient for initial transition planning/care coordination assessment. RN CM introduced self and role at [facility]. Patient lying in bed, alert and oriented, at bedside. Patient willing to participate in assessment and is able to answer all questions appropriately. Care providers, pharmacy, and demographics verified. Patient wishes to discharge home, denies need for home health at this time. Patient states he has no further needs or concerns at this time. CM to follow for discharge planning needs that may arise. PCP: Kemal Louis Specialists: Melba Pineda [facility]acy: [facility] Insurance: [facility] Prescription Benefit: none Living Will/HPOA: yes, Keiry Cuevas LNOK: Living Arrangements: Patient lives with in 2 story home with bed and bath on first floor. Patient states he was independent at home prior to hospitalization. Transportation: Driving service DME/HHC: Patient states he has raised toilet and access to a generator for electricity. No previous HHC or SNF Disposition Plan: Patient to discharge home with family support and follow-up plans in place. Angeles MAHAN, RN, CM
--- NOTE | 2020-12-27 14:24 | CHAPLAIN ---
Type of Pastoral Visit _x__ Initial Visit ___ Follow-up Visit ___ On-call Visit ___ General Patient Visit ___ Spiritual Assessment ___ Family Conference ___ Bereavement ___ Rapid Response ___ Code Blue ___ Other (describe below) Pastoral Care Referral From _x__ Patient ___ Family ___ Nurse ___ Physician ___ Mix House Tender ___ Records Analyst ___ Other (describe below) Sacrament/Intervention _x__ Active listening ___ Anointing ___ Baptist ___ Bereavement ___ Communion ___ Greta exploration ___ _x__ Life review _x__ Prayer ___ Reconciliation ___ Sacrament of Sick ___ Supportive presence ___ Wedding ___ Other (describe below) Pastoral Comments patient has some discomfort but expresses hope that his surgery will be moved up to tomorrow; pt states that care has been good and neighbors are watching over his home/family; pt welcomes prayer support and presence
[2020-12-27] MEDS: Vancomycin IV 1,000 MG/200 ML BAG 200 MG IV (18:30)
--- NOTE | 2020-12-27 20:30 | NURSING ---
dr olvera notified of the pts vs, 101.1, 28, 138/100,133 92%-o2 increased to 5lnc. abd distended with hypo bs and lower abd pain across the stomach, not passing gas every time the pt drinks he spits up what goes in and it is coffee ground looking. pt was assisted to the restroom, gown changed, washed up teeth brushed then assisted up in the chair to sit up. pt stated he feels better sitting up in the recliner chair and is now coughing up less. no changes in orders just to keep the pt npo other than sips and chips.
[2020-12-27] MEDS: Acetaminophen 500 MG Tablet PO (21:30)
[2020-12-27] MEDS: 0.9% Normal Saline 1,000 ML 150 ML IV (23:20)
[2020-12-28] VITALS (9 sets, daily range): BP systolic 120–155; BP diastolic 89–105; PULSE 94–109; RESP 16–28; TEMP 36.6–37.1; O2SAT 94–98
[2020-12-28] MEDS: Acetaminophen 500 MG Tablet PO (02:31)
[2020-12-28 05:29] LABS: Mucous, Urine 0 SEEN /hpf (<or=2+); Red Blood Cells-Urine 0 SEEN /hpf (0-5); Squamous Epithelial Cells - UA 0 SEEN /hpf (0-5)
[2020-12-28] MEDS: HYDROmorphone 1 MG/ML Syringe IV ×4 (05:30→19:12)
[2020-12-28] MEDS: Piperacil/Tazobactam 3.375 GM/50 ML ML IV ×3 (05:30→21:46)
[2020-12-28 05:31] LABS: Color, Urine Yellow (Yellow); Glucose, Dipstick Normal (Normal); Ketone-Dipstick Negative (Negative); Leukocyte Esterase-Dipstick Negative /ul (Negative); Nitrite-Dipstick Negative (Negative); Occult Blood-Urine 150 /ul (Negative); Protein-Dipstick 100 mg/dl (Negative); Specific Gravity, Urine 1.025 (1.002-1.030); Urine Bilirubin Dipstick Negative (Negative); Urine Clarity Clear (Clear); Urine Urobilinogen Normal (Normal)
[2020-12-28 05:50] LABS: Hematocrit 39.8 % (40-54); Hemoglobin 12.8 g/dL (13.0-16.5); Mean Corp Hgb Conc 32.2 g/dL (32-36); Mean Corpuscular Hgb 26.9 pg (27.0-32.0); Mean Corpuscular Volume 83.6 fL (80-94); Mean Platelet Vol. 10.8 fl (6.2-12.0); Platelet Count 237 K/mm3 (150-450); RBC Distribution Width CV 15.3 % (11.6-14.6); RBC Distribution Width SD 46.4 fl (35.1-43.9); Red Blood Count 4.76 M/mm3 (4.6-6.2); White Blood Count 17.3 K/mm3 (4.4-11.0)
[2020-12-28 06:14] LABS: Amorphous Sediment 1+; Bacteria RARE /hpf (None Seen)
[2020-12-28 06:15] LABS: Renal Epithelial Cells 0-5 SEEN /hpf (0-5); White Blood Cells 0-5 SEEN /hpf (0-5)
[2020-12-28] MEDS: 0.9% Normal Saline 1,000 ML 150 ML IV ×3 (06:24→20:16)
[2020-12-28] MEDS: Vancomycin IV 1,000 MG/200 ML BAG 200 MG IV (06:25)
[2020-12-28 06:47] LABS: ALB/GLOB Ratio 0.4 RATIO (0.9-2.4); AST(SGOT) 22 U/L (15-37); Alanine Aminotransfer ALT/SGPT 16 U/L (16-61); Albumin, Serum 1.8 g/dL (3.2-5.0); Alkaline Phosphatase 61 U/L (45-117); Anion Gap 9 (5-15); BUN 58 mg/dL (7-18); BUN/Creat Ratio 22.9 RATIO (10-20); Calcium,Total 8.1 mg/dL (8.5-10.1); Chloride 110 mmol/L (98-107); Creatinine, Serum 2.53 mg/dL (0.70-1.30); EST Glomerular Filtration Rate 29 mL/min (>60); Est Glom Filt Rate - Afr Amer 35 mL/min (>60); Estimated Creatinine Clearance 37.67 ml/min; Globulin 4.7 g/dL (2.2-4.2); Glucose 143 mg/dL (74-106); Potassium 4.1 mmol/L (3.5-5.1); Protein, Total 6.5 g/dL (6.4-8.2); Sodium Level 139 mmol/L (136-145)
--- NOTE | 2020-12-28 07:01 | NURSING ---
PT STATED HE FEELS IF HE IS NOT EMPTYING HIS BLADDER WELL, BLADDER SCANNED FOR 120ML, QUESTIONABLE IF THIS IS ACCURATE D/T HIS LARGE DISTENDED FIRM ABD. SLIGHT EDEMA TO THE RIGHT LOWER LEG.
[2020-12-28] MEDS: Albuterol 2.5 MG/3 ML VIAL.NEB. INHALATION (07:33)
--- NOTE | 2020-12-28 07:41 | PN.URO_ITS ---
Subjective Subjective 45-year-old male admitted with a very large symptomatic renal cyst putting pressure on his abdomen. Drained blood out of the cyst appeared to have may be an episode of bleeding because a very large cyst is clinically stable at this point plan is a bowel prep today and will taken the surgery tomorrow for a laparoscopic robotic assisted cortication. I get a hold on the Vanco given his creatinines up to 2.5 we will continue with Zosyn. We will hold the room staff and so far all the cultures are negative. I suspect that he does not really have an infection is just a cyst systemic response to such a large cyst with rapid hemorrhage and bleeding into the cyst. We will continue with IV fluids he is not tolerating p.o. very well will do Fleet enema for bowel prep not sure if he is going to tolerate up liquid bowel prep has been having some problem with emesis given the symptomatic cyst. We will plan for surgery tomorrow to remove the cyst. Objective Data Objective Data Vital Signs: Vital Signs Temp Pulse Resp BP Pulse Ox 98.1 F 98 24 H 136/90 H 96 12/28/20 06:00 12/28/20 07:33 12/28/20 07:33 12/28/20 06:00 12/28/20 06:00 Oxygen Flow Rate (L/min) 4 Oxygen Delivery Method Nasal Cannula Weight: 116.12 kg Body Mass Index (BMI) 36.7 Intake & Output: Intake and Output for Last 24 Hours 12/26/20 12/27/20 12/28/20 23:59 23:59 23:59 Intake Total 1070 / 1120 3600.41 / 3600.41 1300 / 1300 Output Total 125 / 125 2300 / 4050 1999 / 1999 Balance 945 / 995 1300.41 / -449.59 -700 / -700 Lab / Micro Data Result Diagrams: 12/28/20 05:40 12/28/20 05:40 Labs: Laboratory Results - last 24 hr 12/28/20 05:23: Urine Color Yellow, Urine Clarity Clear, Urine pH 5.0, Ur Specific [place] 1.025, Urine Protein 100 H, Urine Glucose (UA) Normal, Urine Ketones Negative, Urine Occult Blood 150 H, Urine Nitrite Negative, Urine Bilirubin Negative, Urine Urobilinogen Normal, Ur Leukocyte Esterase Negative, Urine RBC 0 SEEN, Urine WBC 0-5 SEEN, Ur Squamous Epith Cells 0 SEEN, Ur Renal Epithelial Cell 0-5 SEEN, Amorphous Sediment 1+, Urine Bacteria RARE, Urine Mucus 0 SEEN 12/28/20 05:40: WBC 17.3 H, RBC 4.76, Hgb 12.8 L, Hct 39.8 L, MCV 83.6, MCH 26.9 L, MCHC 32.2, RDW Std Deviation 46.4 H, RDW Coeff of Colin 15.3 H, Plt Count 237, MPV 10.8 12/28/20 05:40: Sodium 139, Potassium 4.1, Chloride 110 H, Carbon Dioxide 20.0 L , Anion Gap 9, BUN 58 H, Creatinine 2.53 H, Estim Creat Clear Calc 37.67, Est GFR (MDRD) Af Amer 35 L, Est GFR (MDRD) Non-Af 29 L, BUN/Creatinine Ratio 22.9 H , Glucose 143 H, Calcium 8.1 L, Magnesium 2.0, Total Bilirubin 0.80, AST 22, ALT 16, Alkaline Phosphatase 61, Total Protein 6.5, Albumin 1.8 L, Globulin 4.7 H, Albumin/Globulin Ratio 0.4 L Micro: Microbiology 12/27/20 01:10 Fluid - Other Gram Stain - Final 12/26/20 11:50 Urine, Clean Catch Urine Culture - Preliminary Culture exhibits no growth. 12/27/20 01:30 Nasal Secretion SARS-CoV-2 Antigen (Rapid) - Final Radiography Diagnostic Testing: Radiology Impression Abscess Drainage CT 12/27/20 08:30 IMPRESSION: Successful drainage of a large cyst in the upper pole of the right kidney utilizing an 8 [place] all-purpose drainage catheter. Electronically Signed: Tom Rivero MD at 8:32 EDT , Service support , Physical Exam Const alert and oriented x3 General Appearance: cooperative HEENT normocephalic, head/scalp atraumatic, EAC's normal and TM's normal bilaterally Eyes PERRL and EOMs intact bilaterally Pupil: sluggish Neck no lymphadenopathy, supple and no JVD General: trachea midline Lymph Lymphatic: no lymphadenopathy noted, lymphedema and lymphadenopathy Resp normal respiratory effort, normal air movement and clear to auscultation bilaterally Cardio regular rate, regular rhythm and peripheral pulses 2+ throughout GI soft to palpation, non-tender and non-distended Extremity normal capillary refill and no clubbing, cyanosis or edema General Extremity: no tenderness to palpation of joints or extremities Skin no rashes or lesions noted General Skin Exam: turgor normal Lesions: no lesions Rashes: no rashes Neuro CN's II-XII intact bilaterally Speech: speech normal Motor Exam: strength 5/5 throughout; Negative for general weakness Psych thought process normal, cooperative and affect normal Appearance: appropriate Assessment & Plan Assessment/Plan (1) Acute respiratory failure with hypoxia: (2) MIKAYLA (acute kidney injury): (3) Leukocytosis: QUALIFIERS: Leukocytosis type: unspecified Qualified Code(s): D72.829 - Elevated white blood cell count, unspecified (4) Sepsis: (5) Cystic kidney disease:
[2020-12-28] MEDS: 0.9% Normal Saline 1,000 ML 999 ML IV (07:45)
--- NOTE | 2020-12-28 08:12 | PCM.PN.HOSP ---
Subjective Subjective Patient seen still complains of right flank discomfort. WBC count trending down down to 17.3 Objective Data Objective Data Vital Signs: Vital Signs Temp Pulse Resp BP Pulse Ox 98.1 F 98 24 H 136/90 H 98 12/28/20 06:00 12/28/20 07:33 12/28/20 07:33 12/28/20 06:00 12/28/20 07:33 Oxygen Flow Rate (L/min) 4 Oxygen Delivery Method Nasal Cannula Weight: 116.12 kg Body Mass Index (BMI) 36.7 Intake & Output: Intake and Output for Last 24 Hours 12/26/20 12/27/20 12/28/20 23:59 23:59 23:59 Intake Total 1070 / 1120 3600.41 / 3600.41 1500 / 1500 Output Total 125 / 125 2300 / 4050 1999 / 1999 Balance 945 / 995 1300.41 / -449.59 -500 / -500 Lab / Micro Data Result Diagrams: 12/28/20 05:40 12/28/20 05:40 Labs: Laboratory Results - last 24 hr 12/28/20 05:23: Urine Color Yellow, Urine Clarity Clear, Urine pH 5.0, Ur Specific [place] 1.025, Urine Protein 100 H, Urine Glucose (UA) Normal, Urine Ketones Negative, Urine Occult Blood 150 H, Urine Nitrite Negative, Urine Bilirubin Negative, Urine Urobilinogen Normal, Ur Leukocyte Esterase Negative, Urine RBC 0 SEEN, Urine WBC 0-5 SEEN, Ur Squamous Epith Cells 0 SEEN, Ur Renal Epithelial Cell 0-5 SEEN, Amorphous Sediment 1+, Urine Bacteria RARE, Urine Mucus 0 SEEN 12/28/20 05:40: WBC 17.3 H, RBC 4.76, Hgb 12.8 L, Hct 39.8 L, MCV 83.6, MCH 26.9 L, MCHC 32.2, RDW Std Deviation 46.4 H, RDW Coeff of Colin 15.3 H, Plt Count 237, MPV 10.8 12/28/20 05:40: Sodium 139, Potassium 4.1, Chloride 110 H, Carbon Dioxide 20.0 L, Anion Gap 9, BUN 58 H, Creatinine 2.53 H, Estim Creat Clear Calc 37.67, Est GFR (MDRD) Af Amer 35 L, Est GFR (MDRD) Non-Af 29 L, BUN/Creatinine Ratio 22.9 H, Glucose 143 H, Calcium 8.1 L, Magnesium 2.0, Total Bilirubin 0.80, AST 22, ALT 16, Alkaline Phosphatase 61, Total Protein 6.5, Albumin 1.8 L, Globulin 4.7 H, Albumin/Globulin Ratio 0.4 L Micro: Microbiology 12/27/20 01:10 Fluid - Other Gram Stain - Final 12/26/20 11:50 Urine, Clean Catch Urine Culture - Preliminary Culture exhibits no growth. 12/27/20 01:30 Nasal Secretion SARS-CoV-2 Antigen (Rapid) - Final Radiography Diagnostic Testing: Radiology Impression Abscess Drainage CT 12/27/20 08:30 IMPRESSION: Successful drainage of a large cyst in the upper pole of the right kidney utilizing an 8 [place]ian all-purpose drainage catheter. Electronically Signed: Tom Rivero MD at 8:32 EDT , Service support , Physical Exam Narrative GENERAL: cooperative HEENT: Atraumatic; EYES; Anicteric, Normal Conjunctiva NECK; supple, normal thyroid, RESPIRATORY: Diminished to auscultation CARDIOVASCULAR: Regular S1 S2, GI: soft, normoactive bowel sounds, : No Renal angle tenderness; nephrostomy tube right flank EXTREMITIES: No edema, no clubbing, MUSCULOSKELETAL: no muscle waisting NEURO: Awake; no lateralizing signs. SKIN: No Rash PSYCH; Flat affect Assessment & Plan Assessment/Plan (1) Cystic kidney disease: (2) Leukocytosis: QUALIFIERS: Leukocytosis type: unspecified Qualified Code(s): D72.829 - Elevated white blood cell count, unspecified (3) MIKAYLA (acute kidney injury): (4) Acute respiratory failure with hypoxia: PLAN: Patient is a 45-year-old male gentleman admitted with right-sided pain. Patient was found to have a large right renal cyst for which he underwent CT-guided percutaneous drainage with 1400 cc of dark old blood/hemosiderin like fluid drained. He was also found to have leukocytosis with WBC count of twenty 6.7K subsequently placed on broad-spectrum antibiotic therapy 1. Large right renal cyst ?Infectious versus malignancy. Patient underwent percutaneous CT-guided drainage with nephrostomy tube left in place. Patient was admitted by urology. Plan is for patient to undergo laparoscopic cyst decortication and removal of cyst on 12/29/2020 -1Patient seen still complains of right flank discomfort. WBC count trending down down to 17.3 2. Leukocytosis ?Thought to be secondary to above currently on broad-spectrum antibiotic therapy cultures sent ?12/28/2020 WBC count down to 17.3 3. Renal failure ?Baseline creatinine unknown kidney function on admission was 1.73 up to 2.17 currently on IV fluid with daily BMPs ordered ?12/28/2020. Patient creatinine continues to worsen up to 2.53 consult subsequently placed to nephrology 4. Acute hypoxic respiratory failure ?Imaging studies obtained did not demonstrate any infiltrate patient was however significantly hypoxic with oxygen saturation 86% was placed on supplemental oxygen 6 L. Also did encourage the use of incentive spirometry 6. Obesity with BMI of 36.7 ?Weight loss advised 7. DVT prophylaxis -Did encourage early ambulation Charges/Coding Visit Charges Inpatient E&M: 76806 Subs Hosp L3
[2020-12-28] MEDS: 0.9% Saline Lock 10 ML Syringe IV ×2 (11:07→14:33)
[2020-12-28] MEDS: Fleet Enema 1 ML RC (11:52)
[2020-12-28] MEDS: Bisacodyl 5 MG Tablet 20 MG PO (14:18)
--- NOTE | 2020-12-28 14:21 | PCM.CONS.R ---
Assessment & Plan Assessment/Plan (1) MIKAYLA (acute kidney injury): PLAN: Baseline creatinine is unknown. Has not seen a doctor in the past. Apparently he got preop labs for a hernia repair surgery about 2 years ago. Will call the lab there for results. Admitted with a creatinine of 1.7 and has been worsening since then. CT abdomen did not show any hydronephrosis. Urine analysis show some protein and blood which could be just from the cystic hemorrhage. Blood pressure is okay. He was on vancomycin and this has been discontinued. Current medication list reviewed. Continue fluids for today. He is scheduled for decortication tomorrow. (2) Cystic kidney disease: HPI Consult Data Date of Consult: 12/28/20 HPI Narrative HPI Narrative: RANDELL FULLER, is a 45 M who presents To the hospital with complaints of right-sided flank and abdominal pain. CT scan showed extremely large cystic fluid collection adjacent to right kidney. Reviewed images. The cyst was essentially occupying most of the right side of the abdomen compressing on the kidney. He had emergent drain placement by urology. Had dark brown fluid come out, suspected hemorrhagic cystic fluid collection. He is scheduled for decortication tomorrow. Nephrology consulted for acute renal failure. No prior medical history. Did not see a doctor. No diabetes, hypertension. No NSAIDs. No prior baseline labs for comparison. Admitted with a creatinine of 1.7. Up to 2.5 today. [facility] Medical History (Updated 12/27/20 @ 06:[address] Kemal Jackson DO) Migraines Medical History no medical history Allergy/AdvReac Type Severity Reaction Status Date / Time No Known Allergies Allergy Verified 12/26/20 11:50 Family History (Updated 12/27/20 @ 05:[address] Kemal Jackson DO) Grandmother Cancer Other Diabetes Social History (Updated 12/27/20 @ 05:[address] Kemal Jackson DO) Smoking Status: Never smoker alcohol intake: current alcohol intake frequency: a few times a month ROS ROS Narrative Negative except the above Physical Exam Narrative Alert awake oriented x 3 no obvious distress no pallor no icterus no JVD s1s2 no murmurs lungs clear abdomen soft no organomegaly no edema no cyanosis Lab / Micro Data Result Diagrams: 12/28/20 05:40 12/28/20 05:40 Labs: Laboratory Results - last 24 hr 12/28/20 05:23: Urine Color Yellow, Urine Clarity Clear, Urine pH 5.0, Ur Specific [place] 1.025, Urine Protein 100 H, Urine Glucose (UA) Normal, Urine Ketones Negative, Urine Occult Blood 150 H, Urine Nitrite Negative, Urine Bilirubin Negative, Urine Urobilinogen Normal, Ur Leukocyte Esterase Negative, Urine RBC 0 SEEN, Urine WBC 0-5 SEEN, Ur Squamous Epith Cells 0 SEEN, Ur Renal Epithelial Cell 0-5 SEEN, Amorphous Sediment 1+, Urine Bacteria RARE, Urine Mucus 0 SEEN 12/28/20 05:40: WBC 17.3 H, RBC 4.76, Hgb 12.8 L, Hct 39.8 L, MCV 83.6, MCH 26.9 L, MCHC 32.2, RDW Std Deviation 46.4 H, RDW Coeff of Colin 15.3 H, Plt Count 237, MPV 10.8 12/28/20 05:40: Sodium 139, Potassium 4.1, Chloride 110 H, Carbon Dioxide 20.0 L, Anion Gap 9, BUN 58 H, Creatinine 2.53 H, Estim Creat Clear Calc 37.67, Est GFR (MDRD) Af Amer 35 L, Est GFR (MDRD) Non-Af 29 L, BUN/Creatinine Ratio 22.9 H, Glucose 143 H, Calcium 8.1 L, Magnesium 2.0, Total Bilirubin 0.80, AST 22, ALT 16, Alkaline Phosphatase 61, Total Protein 6.5, Albumin 1.8 L, Globulin 4.7 H, Albumin/Globulin Ratio 0.4 L Micro: Microbiology 12/27/20 01:10 Fluid - Other Gram Stain - Final 12/27/20 01:10 Fluid - Other Body Fluid Culture - Preliminary Streptococcus group A 12/26/20 22:00 Urine, Midstream Urine Culture - Preliminary Culture exhibits no growth. 12/26/20 11:50 Urine, Clean Catch Urine Culture - Final Culture exhibits no growth.
[2020-12-28] MEDS: Bisacodyl 10 MG Suppository RC (19:12)
[2020-12-28 19:14] LABS: Vancomycin, Trough Level 13.4 ug/mL (5.0-15.0)
[2020-12-28] MEDS: Docusate Sodium 100 MG Capsule PO (21:46)
[2020-12-29] VITALS (13 sets, daily range): BP systolic 117–156; BP diastolic 82–116; PULSE 93–122; RESP 15–20; TEMP 36.4–37.2; O2SAT 93–100
[2020-12-29] MEDS: 0.9% Normal Saline 1,000 ML 150 ML IV ×2 (01:30→08:18)
[2020-12-29] MEDS: HYDROmorphone 1 MG/ML Syringe IV ×5 (04:18→22:29)
[2020-12-29] MEDS: Piperacil/Tazobactam 3.375 GM/50 ML ML IV ×3 (05:30→22:40)
--- NOTE | 2020-12-29 05:55 | EKG12_ITS ---
Test Reason : PRE-OP Blood Pressure : / mmHG Vent. Rate : 096 BPM Atrial Rate : 096 BPM P-R Int : 156 ms QRS Dur : 092 ms QT Int : 362 ms P-R-T Axes : 008 -26 -17 degrees QTc Int : 457 ms Normal sinus rhythm Nonspecific T wave abnormality Confirmed by KEMAL LEW, AGUILA ([id number]), social media editor FLORY RAMOS ([id number]) on 01/02/2021 8:28:56 AM Referred By: ESTELLE MENESES Confirmed By:AGUILA SOMMER MD
--- NOTE | 2020-12-29 06:58 | PN.HOSP_ITS ---
Subjective Subjective Patient seen scheduled to undergo decortication of his right renal cyst. Was seen in consultation by nephrology today prior notes and recommendations reviewed Objective Data Objective Data Vital Signs: Vital Signs Temp Pulse Resp BP Pulse Ox 98.1 F 97 18 155/97 H 94 12/29/20 02:10 12/29/20 02:10 12/29/20 02:10 12/29/20 02:10 12/29/20 02:10 Oxygen Flow Rate (L/min) 2 Oxygen Delivery Method Room Air Weight: 116.12 kg Body Mass Index (BMI) 36.7 Intake & Output: Intake and Output for Last 24 Hours 12/27/20 12/28/20 12/29/20 23:59 23:59 23:59 Intake Total 3600.41 / 3600.41 4747.5 / 4747.5 835 / 835 Output Total 2300 / 4050 2850 / 3050 600 / 600 Balance 1300.41 / -449.59 1897.5 / 1697.5 235 / 235 Lab / Micro Data Result Diagrams: 12/29/20 06:28 12/29/20 06:28 Labs: Laboratory Results - last 24 hr 12/28/20 18:25: Vancomycin Trough 13.4 Micro: Microbiology 12/27/20 01:10 Fluid - Other Gram Stain - Final 12/27/20 01:10 Fluid - Other Body Fluid Culture - Preliminary Streptococcus group A 12/26/20 22:00 Urine, Midstream Urine Culture - Preliminary Culture exhibits no growth. 12/26/20 11:50 Urine, Clean Catch Urine Culture - Final Culture exhibits no growth. 12/27/20 01:30 Nasal Secretion SARS-CoV-2 Antigen (Rapid) - Final Physical Exam Narrative GENERAL: cooperative HEENT: Atraumatic; EYES; Anicteric, Normal Conjunctiva NECK; supple, normal thyroid, RESPIRATORY: Diminished to auscultation CARDIOVASCULAR: Regular S1 S2, GI: soft, normoactive bowel sounds, : No Renal angle tenderness; nephrostomy tube right flank EXTREMITIES: No edema, no clubbing, MUSCULOSKELETAL: no muscle waisting NEURO: Awake; no lateralizing signs. SKIN: No Rash PSYCH; Flat affect Assessment & Plan Assessment/Plan (1) Cystic kidney disease: (2) Leukocytosis: QUALIFIERS: Leukocytosis type: unspecified Qualified Code(s): D72.829 - Elevated white blood cell count, unspecified (3) MIKAYLA (acute kidney injury): (4) Acute respiratory failure with hypoxia: PLAN: Patient is a 45-year-old male gentleman admitted with right-sided pain. Patient was found to have a large right renal cyst for which he underwent CT-guided percutaneous drainage with 1400 cc of dark old blood/hemosiderin like fluid drained. He was also found to have leukocytosis with WBC count of twenty 6.7K subsequently placed on broad-spectrum antibiotic therapy 1. Large right renal cyst ?Infectious versus malignancy. Patient underwent percutaneous CT-guided drainage with nephrostomy tube left in place. Patient was admitted by urology. Plan is for patient to undergo laparoscopic cyst decortication and removal of cyst on 12/29/2020 -1Patient seen still complains of right flank discomfort. WBC count trending down down to 17.3 -12/29/2020; Patient seen scheduled to undergo decortication of his right renal cyst 2. Leukocytosis ?Thought to be secondary to above currently on broad-spectrum antibiotic therapy cultures sent ?12/28/2020 WBC count down to 17.3 3. Renal failure ?Baseline creatinine unknown kidney function on admission was 1.73 up to 2.17 currently on IV fluid with daily BMPs ordered ?12/28/2020. Patient creatinine continues to worsen up to 2.53 consult subseq uently placed to nephrology 4. Acute hypoxic respiratory failure ?Imaging studies obtained did not demonstrate any infiltrate patient was however significantly hypoxic with oxygen saturation 86% was placed on supplemental oxygen 6 L. Also did encourage the use of incentive spirometry 6. Obesity with BMI of 36.7 ?Weight loss advised 7. DVT prophylaxis -Did encourage early ambulation Charges/Coding Visit Charges Inpatient E&M: 64211 Subs Hosp L2
[2020-12-29 07:11] LABS: Hematocrit 37.6 % (40-54); Hemoglobin 12.4 g/dL (13.0-16.5); Mean Corpuscular Hgb 27.1 pg (27.0-32.0); Mean Corpuscular Volume 82.1 fL (80-94); Mean Platelet Vol. 11.2 fl (6.2-12.0); Platelet Count 239 K/mm3 (150-450); RBC Distribution Width CV 15.5 % (11.6-14.6); RBC Distribution Width SD 46.5 fl (35.1-43.9); Red Blood Count 4.58 M/mm3 (4.6-6.2); White Blood Count 16.9 K/mm3 (4.4-11.0)
[2020-12-29 08:13] LABS: ALB/GLOB Ratio 0.3 RATIO (0.9-2.4); AST(SGOT) 14 U/L (15-37); Alanine Aminotransfer ALT/SGPT 14 U/L (16-61); Albumin, Serum 1.7 g/dL (3.2-5.0); Alkaline Phosphatase 71 U/L (45-117); Anion Gap 8 (5-15); BUN 46 mg/dL (7-18); BUN/Creat Ratio 25.6 RATIO (10-20); Calcium,Total 8.6 mg/dL (8.5-10.1); Chloride 113 mmol/L (98-107); EST Glomerular Filtration Rate 43 mL/min (>60); Est Glom Filt Rate - Afr Amer 52 mL/min (>60); Estimated Creatinine Clearance 52.95 ml/min; Globulin 5.1 g/dL (2.2-4.2); Glucose 116 mg/dL (74-106); Potassium 3.7 mmol/L (3.5-5.1); Protein, Total 6.8 g/dL (6.4-8.2); Sodium Level 142 mmol/L (136-145)
[2020-12-29] MEDS: 0.9% Saline Lock 10 ML Syringe IV ×2 (08:19→11:25)
[2020-12-29 09:19] LABS: Pathologist Review Reviewed
[2020-12-29] MEDS: Docusate Sodium 100 MG Capsule PO (09:45)
--- NOTE | 2020-12-29 12:12 | NURSING ---
to Or per bed, present
--- NOTE | 2020-12-29 13:30 | KI_PTH ---
PATIENT: RANDELL FULLER LOC: MS2 U#:[id number] AGE/SX: 45/M ROOM: [facility] [place] RE12/26/[address]: Dr. 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 JAQUAN:hector 01/02/2021 COMMENT Extensive area of hemorrhage with numerous blood clots are noted. Clinical correlation and appropriate follow up are necessary. Please make reference to previous specimen ([id number]) kidney fluid for cytology with diagnosis of ?negative for malignant cells and bloody specimen.? This case is discussed with Dr. Reilly on 01/02/2021 Case has been reviewed in consultation with Dr. Roland who concurs with the above diagnosis. IDC:AM MICROSCOPIC DESCRIPTION Slides are reviewed. GROSS DESCRIPTION Received in fixative is one container labeled with the patient's name and designated right renal cyst. The specimen consists of multiple irregular and friable fragments of red-yellow soft tissue that in aggregate measure 26 x 21 x 3 cm. Contact Center Assistant sections are submitted in six cassettes. / AM:hector 01/01/21 TC:0 [facility]: [id number]
[2020-12-29] MEDS: BUPIVACAINE LIPOSOME/PF 20 ML VIAL OPERA.SITE (15:10)
[2020-12-29] MEDS: Bupivacaine Mpf 0.5% 30 ML VIAL (15:29)
--- NOTE | 2020-12-29 15:52 | OP.PCM_ITS ---
Report of Operation Date of Procedure: 12/29/20 Pre-Operative Diagnosis: Large right renal cyst with hemorrhage and infected Post-Operative Diagnosis: Large right ruptured renal cyst Surgery/Procedure Performed:: Laparoscopic converted to open renal exploration cyst decortication and evacuation of abscess from kidney placement of surgical drains. Description of Surgical Findings:: Is a 45-year-old male presented earlier this week with severe pain from a large cyst in the right kidney he underwent placement of a drain on first admission to the hospital but the drain was fairly ineffective because of such a large very thick hemosiderin-like material we did send it off for culture eventually did grow up some strep a from the the drain. After continued pain he was given IV antibiotics for sepsis which improved and at this point today working to proceed with surgical exploration of this large renal cyst and the plan was be to do a laparoscopic approach to remove the cyst and the fluid within the cyst. Patient was taken back to the operating room after smooth induction of general anesthesia Lopez catheter was placed he underwent intubation patient was turned on his side we then removed the drain from the back immediately had a lot of fluid coming out of the drain site we suctioned out about 500 cc of dark fluid when we turned the patient on the side he also had copious amount of greenish fluid coming out of his nose an NG tube was placed and decompress the stomach still a lot of fluid coming out of his nose. This continued even after placing the NG tube eventually the fluid is coming out the NG tube. The abdomen was then cleaned shaved prepped and draped in usual sterile fashion I made a small incision in the midline abdomen and then placed a Veress needle into the peritoneal cavity and insufflated the peritoneal cavity with CO2 gas and then placed my first trocar and looked in immediately could see that the a lot of hemosiderin brownish material was throughout the abdomen and appeared that the renal cyst had ruptured and there was hemosiderin fluid throughout the abdomen I placed a second trochars and then consider the option of proceeding laparoscopically however as I opened up a small tear in the renal cyst the fluid was so thick that we could not even aspirate and suction the fluid out so I decided to proceed with an open conversion in elective fashion. We removed the ports made an incision and subcostal incision dissected through all 3 layers of the muscle got into the abdomen we placed a self- retaining retractor in the abdomen and then the colon was already off the kidney I then found a pocket on top of the kidney where the cyst was I incised this and then manually irrigated out and using sponges and my hands I reached into the kidney cyst and pulled out a significant amount of brownish hemosiderin-like material from the kidney layers and buckets was taken out I then copiously irrigated out the kidney we copiously irrigated out the abdomen completely with multiple bottles of tepid normal saline. After irrigating out this completely we then excised the top part of the renal cyst to excise part of the cyst to decorticate part of the cyst to prevent the cyst from coming back. During this decortication we ran into some bleeding from the edges that was attached to the kidney I had to use a several stitches using 0 Vicryl to control this bleeding from the kidney there was also some bleeding from deep within the cyst layer as we cleared out all the hemosiderin fluid from the cyst we used FloSeal and Surgicel packed deeply within the cyst took stop bleeding eventually the bleeding did stop there was only a very minor amount of oozing after irrigating completely then at this point no more's hemosiderin brownish material was in the belly anymore irrigated extensively extensively throughout the abdomen he did have an ileus with results of this ruptured cyst. I then placed 2 surgical drains inside the cyst space we made sure that there was no bleeding within the cyst itself I then closed the layers of the abdomen in 3 layers the first layer was with 0 Vicryl second layer with with #1 PDS and then we closed the incision with sharan. We then closed the other smaller incisions with subcuticular stitches both drainages were placed to the GILBERT drain patient was extubated only reported a very small amount of succus material within the ET tube but is very possible he may have aspirated. In the PACU in a check a chest x-ray we will check a KUB the placed check the placement of the NG tube during surgery. The patient was extubated and taken back to the PACU in stable fashion. Type of Anesthesia: General Drains: GILBERT x 2 Admit VTE Documentation VTE Present on Admission: No VTE Mechan Device Prophylaxis: SCD's
--- NOTE | 2020-12-29 16:10 | RAD_ITS ---
STUDY: X-RAY CHEST REASON FOR EXAM: Male, 45 years old. PSOT OP FOR VOMITING UNDER ANESTHESIA, POSSIBLE ASPIRATION, NG TUBE PLACEMENT in PACU TECHNIQUE: XR Chest 1 View COMPARISON: Two days ago. FINDINGS: Prominent pulmonary vasculature can suggest pulmonary edema. Normal size heart. Normal mediastinum and viri. Normal visualized pulmonary arteries. There is atherosclerotic calcification of the aortic arch with tortuosity. There are diffuse degenerative changes of the visualized thoracic spine. There is degenerative osteoarthritis of the bilateral shoulders. There is a feeding tube/ nasogastric tube noted. The tip is in the region of the stomach. RAD/Chest 1 View (Portable) IMPRESSION: There has been no change in the appearance of the chest since the prior study. There is a feeding tube/ nasogastric tube noted. The tip is in the region of the stomach. Electronically Signed: Paul Day MD at 16:31 EDT , Service support ,
[2020-12-29 16:25] LABS: Hemoglobin 9.6 g/dL (13.0-16.5); Mean Corpuscular Hgb 26.7 pg (27.0-32.0); Mean Corpuscular Volume 86.1 fL (80-94); Mean Platelet Vol. 11.8 fl (6.2-12.0); Platelet Count 196 K/mm3 (150-450); RBC Distribution Width CV 15.8 % (11.6-14.6); RBC Distribution Width SD 49.3 fl (35.1-43.9); White Blood Count 21.4 K/mm3 (4.4-11.0)
[2020-12-29 16:44] LABS: Anion Gap 7 (5-15); BUN 47 mg/dL (7-18); BUN/Creat Ratio 25.4 RATIO (10-20); Calcium,Total 7.4 mg/dL (8.5-10.1); Chloride 117 mmol/L (98-107); Creatinine, Serum 1.85 mg/dL (0.70-1.30); EST Glomerular Filtration Rate 42 mL/min (>60); Est Glom Filt Rate - Afr Amer 51 mL/min (>60); Estimated Creatinine Clearance 51.52 ml/min; Glucose 150 mg/dL (74-106); Potassium 4.3 mmol/L (3.5-5.1); Sodium Level 145 mmol/L (136-145)
[2020-12-30] MEDS: Lactated Ringers 1,000 ML 150 ML IV ×2 (00:10→06:07)
[2020-12-30 04:32] VITALS: BP 143/88; PULSE 89; RESP 18; TEMP 36.5; O2SAT 92
[2020-12-30] MEDS: Piperacil/Tazobactam 3.375 GM/50 ML ML IV ×3 (05:14→22:23)
[2020-12-30] MEDS: HYDROmorphone 1 MG/ML Syringe IV ×5 (06:08→20:48)
[2020-12-30 07:06] LABS: Bedside Glucose 136 mg/dL (70-110)
--- NOTE | 2020-12-30 07:13 | PCM.PN.HOSP ---
Subjective Subjective Patient underwent laparoscopic converted to open renal exploration cyst decortication and evacuation of abscess from kidney placement of surgical drains by Dr Reilly on 12/29/2020. Objective Data Objective Data Vital Signs: Vital Signs Temp Pulse Resp BP Pulse Ox 97.7 F L 89 18 143/88 H 92 12/30/20 04:32 12/30/20 04:32 12/30/20 04:32 12/30/20 04:32 12/30/20 04:32 Oxygen Flow Rate (L/min) 2 Oxygen Delivery Method Room Air Weight: 116.12 kg Body Mass Index (BMI) 36.7 Intake & Output: Intake and Output for Last 24 Hours 12/28/20 12/29/20 12/30/20 23:59 23:59 23:59 Intake Total 4747.5 / 4747.5 3075 / 3075 982.5 / 982.5 Output Total 2850 / 3050 2125 / 2125 815 / 815 Balance 1897.5 / 1697.5 950 / 950 167.5 / 167.5 Lab / Micro Data Result Diagrams: 12/30/20 07:19 12/30/20 07:19 Labs: Laboratory Results - last 24 hr 12/27/20 02:50: Diff Path Review Reviewed 12/29/20 06:28: Sodium 142, Potassium 3.7, Chloride 113 H, Carbon Dioxide 21.0, Anion Gap 8, BUN 46 H, Creatinine 1.80 H, Estim Creat Clear Calc 52.95, Est GFR (MDRD) Af Amer 52 L, Est GFR (MDRD) Non-Af 43 L, BUN/Creatinine Ratio 25.6 H, Glucose 116 H, Calcium 8.6, Total Bilirubin 1.10 H, AST 14 L, ALT 14 L, Alkaline Phosphatase 71, Total Protein 6.8, Albumin 1.7 L, Globulin 5.1 H, Albumin/Globulin Ratio 0.3 L 12/29/20 16:08: WBC 21.4 H, RBC 3.60 L, Hgb 9.6 L, Hct 31.0 L, MCV 86.1, MCH 26.7 L, MCHC 31.0 L D, RDW Std Deviation 49.3 H, RDW Coeff of Colin 15.8 H, Plt Count 196, MPV 11.8 12/29/20 16:08: Sodium 145, Potassium 4.3, Chloride 117 H, Carbon Dioxide 21.0, Anion Gap 7, BUN 47 H, Creatinine 1.85 H, Estim Creat Clear Calc 51.52, Est GFR (MDRD) Af Amer 51 L, Est GFR (MDRD) Non-Af 42 L, BUN/Creatinine Ratio 25.4 H, Glucose 150 H, Calcium 7.4 L 12/30/20 06:51: POC Glucose 136 H Micro: Microbiology 12/27/20 01:10 Fluid - Other Gram Stain - Final 12/27/20 01:10 Fluid - Other Body Fluid Culture - Final Streptococcus group A 12/27/20 01:10 Fluid - Other Anaerobic Culture - Final No anaerobic bacteria isolated. 12/26/20 22:00 Urine, Midstream Urine Culture - Final Culture exhibits no growth. 12/26/20 22:20 Blood Culture (Wb) - Left Forearm Blood Culture - Preliminary No growth in 48 hours. 12/26/20 22:16 Blood Culture (Wb) - Anticubital Left Blood Culture - Preliminary No growth in 48 hours. 12/26/20 11:50 Urine, Clean Catch Urine Culture - Final Culture exhibits no growth. 12/27/20 01:30 Nasal Secretion SARS-CoV-2 Antigen (Rapid) - Final Radiography Diagnostic Testing: Radiology Impression Chest X-Ray 12/29/20 16:10 IMPRESSION: There has been no change in the appearance of the chest since the prior study. There is a feeding tube/ nasogastric tube noted. The tip is in the region of the stomach. Electronically Signed: Paul Day MD at 16:31 EDT , Service support , Physical Exam Narrative GENERAL: cooperative HEENT: Atraumatic; EYES; Anicteric, Normal Conjunctiva NECK; supple, normal thyroid, RESPIRATORY: Diminished to auscultation CARDIOVASCULAR: Regular S1 S2, GI: soft, normoactive bowel sounds, : GILBERT drain right flank EXTREMITIES: No edema, no clubbing, MUSCULOSKELETAL: no muscle waisting NEURO: Awake; no lateralizing signs. SKIN: No Rash PSYCH; Flat affect Assessment & Plan Assessment/Plan (1) Cystic kidney disease: (2) Leukocytosis: QUALIFIERS: Leukocytosis type: unspecified Qualified Code(s): D72.829 - Elevated white blood cell count, unspecified (3) MIKAYLA (acute kidney injury): (4) Acute respiratory failure with hypoxia: PLAN: Patient is a 45-year-old male gentleman admitted with right-sided pain. Patient was found to have a large right renal cyst for which he underwent CT-guided percutaneous drainage with 1400 cc of dark old blood/hemosiderin like fluid drained. He was also found to have leukocytosis with WBC count of twenty 6.7K subsequently placed on broad-spectrum antibiotic therapy 1. Large right renal cyst ?Infectious versus malignancy. Patient underwent percutaneous CT-guided drainage with nephrostomy tube left in place. Patient was admitted by urology. Plan is for patient to undergo laparoscopic cyst decortication and removal of cyst on 12/29/2020 -12/28/2020atient seen still complains of right flank discomfort. WBC count trending down down to 17.3 -12/29/2020; Patient seen scheduled to undergo decortication of his right renal cyst -12/30/2020; patient underwent Laparoscopic converted to open renal exploration cyst decortication and evacuation of abscess from kidney placement of surgical drains.. Cultures obtained on 12/27/2020 came back positive for Streptococcus group A. Remains on appropriate antibiotic therapy 2. Leukocytosis ?Thought to be secondary to above currently on broad-spectrum antibiotic therapy cultures sent ?12/28/2020 WBC count down to 17.3 3. Renal failure ?Baseline creatinine unknown kidney function on admission was 1.73 up to 2.17 currently on IV fluid with daily BMPs ordered ?12/28/2020. Patient creatinine continues to worsen up to 2.53 consult subsequently placed to nephrology -12/30/2020 some improvement in patient's kidney function creatinine down to 1.85 4. Acute hypoxic respiratory failure ?Imaging studies obtained did not demonstrate any infiltrate patient was however significantly hypoxic with oxygen saturation 86% was placed on supplemental oxygen 6 L. Also did encourage the use of incentive spirometry 6. Obesity with BMI of 36.7 ?Weight loss advised 7. DVT prophylaxis -Did encourage early ambulation 8. Hypernatremia ?Adjusted patient IV fluid Charges/Coding Visit Charges Inpatient E&M: 90520 Subs Hosp L3
[2020-12-30 07:40] LABS: Hemoglobin 8.6 g/dL (13.0-16.5); Mean Corp Hgb Conc 33.1 g/dL (32-36); Mean Corpuscular Hgb 27.5 pg (27.0-32.0); Mean Corpuscular Volume 83.1 fL (80-94); Mean Platelet Vol. 11.8 fl (6.2-12.0); Platelet Count 201 K/mm3 (150-450); RBC Distribution Width CV 15.7 % (11.6-14.6); RBC Distribution Width SD 47.8 fl (35.1-43.9); Red Blood Count 3.13 M/mm3 (4.6-6.2); White Blood Count 19.5 K/mm3 (4.4-11.0)
[2020-12-30 08:11] LABS: ALB/GLOB Ratio 0.3 RATIO (0.9-2.4); AST(SGOT) 36 U/L (15-37); Alanine Aminotransfer ALT/SGPT 24 U/L (16-61); Albumin, Serum 1.3 g/dL (3.2-5.0); Alkaline Phosphatase 59 U/L (45-117); Anion Gap 6 (5-15); BUN 47 mg/dL (7-18); BUN/Creat Ratio 26.6 RATIO (10-20); Calcium,Total 7.5 mg/dL (8.5-10.1); Chloride 121 mmol/L (98-107); Creatinine, Serum 1.77 mg/dL (0.70-1.30); EST Glomerular Filtration Rate 44 mL/min (>60); Est Glom Filt Rate - Afr Amer 53 mL/min (>60); Estimated Creatinine Clearance 53.84 ml/min; Globulin 3.9 g/dL (2.2-4.2); Glucose 149 mg/dL (74-106); Potassium 4.4 mmol/L (3.5-5.1); Protein, Total 5.2 g/dL (6.4-8.2); Sodium Level 149 mmol/L (136-145)
--- NOTE | 2020-12-30 08:13 | PN.URO_ITS ---
Subjective Subjective Postoperative day #1 status post open cyst decortication and removal of renal abscess and washout of the abdomen. NG tube is in place output is okay. GILBERT output is low. GILBERT drains are in the abscess site. No flatus no gas no bowel movements yet. Pain is under control reports pain between 3-5 out of 10. Abdomen is nice and soft and benign. Lopez catheter has been removed this morning for voiding trial. Objective Data Objective Data Vital Signs: Vital Signs Temp Pulse Resp BP Pulse Ox 97.7 F L 89 18 143/88 H 92 12/30/20 04:32 12/30/20 04:32 12/30/20 04:32 12/30/20 04:32 12/30/20 04:32 Oxygen Flow Rate (L/min) 2 Oxygen Delivery Method Room Air Weight: 116.12 kg Body Mass Index (BMI) 36.7 Intake & Output: Intake and Output for Last 24 Hours 12/28/20 12/29/20 12/30/20 23:59 23:59 23:59 Intake Total 4747.5 / 4747.5 3075 / 3075 982.5 / 982.5 Output Total 2850 / 3050 2125 / 2125 815 / 815 Balance 1897.5 / 1697.5 950 / 950 167.5 / 167.5 Lab / Micro Data Result Diagrams: 12/30/20 07:19 12/30/20 07:19 Labs: Laboratory Results - last 24 hr 12/27/20 02:50: Diff Path Review Reviewed 12/29/20 06:28: Sodium 142, Potassium 3.7, Chloride 113 H, Carbon Dioxide 21.0, Anion Gap 8, BUN 46 H, Creatinine 1.80 H, Estim Creat Clear Calc 52.95, Est GFR (MDRD) Af Amer 52 L, Est GFR (MDRD) Non-Af 43 L, BUN/Creatinine Ratio 25.6 H, Glucose 116 H, Calcium 8.6, Total Bilirubin 1.10 H, AST 14 L, ALT 14 L, Alkaline Phosphatase 71, Total Protein 6.8, Albumin 1.7 L, Globulin 5.1 H, Al bumin/Globulin Ratio 0.3 L 12/29/20 16:08: WBC 21.4 H, RBC 3.60 L, Hgb 9.6 L, Hct 31.0 L, MCV 86.1, MCH 26.7 L, MCHC 31.0 L D, RDW Std Deviation 49.3 H, RDW Coeff of Colin 15.8 H, Plt Count 196, MPV 11.8 12/29/20 16:08: Sodium 145, Potassium 4.3, Chloride 117 H, Carbon Dioxide 21.0, Anion Gap 7, BUN 47 H, Creatinine 1.85 H, Estim Creat Clear Calc 51.52, Est GFR (MDRD) Af Amer 51 L, Est GFR (MDRD) Non-Af 42 L, BUN/Creatinine Ratio 25.4 H, Glucose 150 H, Calcium 7.4 L 12/30/20 06:51: POC Glucose 136 H 12/30/20 07:19: WBC 19.5 H, RBC 3.13 L, Hgb 8.6 L, Hct 26.0 L, MCV 83.1, MCH 27.5, MCHC 33.1 D, RDW Std Deviation 47.8 H, RDW Coeff of Colin 15.7 H, Plt Count 201, MPV 11.8 12/30/20 07:19: Sodium 149 H, Potassium 4.4, Chloride 121 H, Carbon Dioxide 22.0, Anion Gap 6, BUN 47 H, Creatinine 1.77 H, Estim Creat Clear Calc 53.84, Est GFR (MDRD) Af Amer 53 L, Est GFR (MDRD) Non-Af 44 L, BUN/Creatinine Ratio 26.6 H, Glucose 149 H, Calcium 7.5 L, Total Bilirubin 1.20 H, AST 36, ALT 24, Alkaline Phosphatase 59, Total Protein 5.2 L, Albumin 1.3 L, Globulin 3.9, Albumin/Globulin Ratio 0.3 L Micro: Microbiology 12/27/20 01:10 Fluid - Other Gram Stain - Final 12/27/20 01:10 Fluid - Other Body Fluid Culture - Final Streptococcus group A 12/27/20 01:10 Fluid - Other Anaerobic Culture - Final No anaerobic bacteria isolated. 12/26/20 22:00 Urine, Midstream Urine Culture - Final Culture exhibits no growth. 12/26/20 22:20 Blood Culture (Wb) - Left Forearm Blood Culture - Preliminary No growth in 48 hours. 12/26/20 22:16 Blood Culture (Wb) - Anticubital Left Blood Culture - Preliminary No growth in 48 hours. 12/26/20 11:50 Urine, Clean Catch Urine Culture - Final Culture exhibits no growth. 12/27/20 01:30 Nasal Secretion SARS-CoV-2 Antigen (Rapid) - Final Radiography Diagnostic Testing: Radiology Impression Chest X-Ray 12/29/20 16:10 IMPRESSION: There has been no change in the appearance of the chest since the prior study. There is a feeding tube/ nasogastric tube noted. The tip is in the region of the stomach. Electronically Signed: Paul Day MD at 16:31 EDT , Service support , Physical Exam Const alert and oriented x3 General Appearance: cooperative HEENT normocephalic, head/scalp atraumatic, EAC's normal and TM's normal bilaterally Eyes PERRL and EOMs intact bilaterally Pupil: sluggish Neck no lymphadenopathy, supple and no JVD General: trachea midline Lymph Lymphatic: no lymphadenopathy noted, lymphedema and lymphadenopathy Resp normal respiratory effort, normal air movement and clear to auscultation bilaterally Cardio regular rate, regular rhythm and peripheral pulses 2+ throughout GI soft to palpation, non-tender and non-distended Extremity normal capillary refill and no clubbing, cyanosis or edema General Extremity: no tenderness to palpation of joints or extremities Skin no rashes or lesions noted General Skin Exam: turgor normal Lesions: no lesions Rashes: no rashes Neuro CN's II-XII intact bilaterally Speech: speech normal Motor Exam: strength 5/5 throughout; Negative for general weakness Psych thought process normal, cooperative and affect normal Appearance: appropriate Assessment & Plan Assessment/Plan (1) MIKAYLA (acute kidney injury): (2) Leukocytosis: QUALIFIERS: Leukocytosis type: unspecified Qualified Code(s): D72.829 - Elevated white blood cell count, unspecified (3) Sepsis: (4) Cystic kidney disease: (5) Renal abscess:
[2020-12-30 08:31] VITALS: BP 142/88; PULSE 88; RESP 16; TEMP 37.2; O2SAT 98
[2020-12-30] MEDS: 0.45% Normal Saline 1,000 ML 150 ML IV ×2 (11:21→17:55)
[2020-12-30 12:10] VITALS: BP 119/82; BP 119/88; PULSE 98; RESP 20; TEMP 36.3; O2SAT 99
[2020-12-30] MEDS: 0.9% Saline Lock 10 ML Syringe IV ×3 (12:12→22:24)
[2020-12-30 15:04] VITALS: BP 125/83; PULSE 97
[2020-12-30 20:00] VITALS: PULSE 94
[2020-12-30 22:27] VITALS: BP 130/79; PULSE 78; RESP 22; TEMP 36.6; O2SAT 98
[2020-12-31] VITALS (11 sets, daily range): BP systolic 128–153; BP diastolic 76–94; PULSE 74–104; RESP 15–18; TEMP 36.6–37.2; O2SAT 97–98
[2020-12-31] MEDS: 0.45% Normal Saline 1,000 ML 150 ML IV ×2 (00:50→06:28)
[2020-12-31] MEDS: HYDROmorphone 1 MG/ML Syringe IV ×3 (06:29→21:39)
[2020-12-31] MEDS: Piperacil/Tazobactam 3.375 GM/50 ML ML IV ×3 (06:29→21:40)
--- NOTE | 2020-12-31 07:27 | PN.HOSP_ITS ---
Subjective Subjective Patient seen, pain is tolerable. WBC count trending up. Cultures obtained from his cyst grew beta strep; previous culture had grown group B strep. Remains on broad-spectrum antibiotic therapy. Significant drop in patient hemoglobin level to 7.2 Objective Data Objective Data Vital Signs: Vital Signs Temp Pulse Resp BP Pulse Ox 97.8 F 98 18 130/79 H 98 12/31/20 03:00 12/31/20 06:00 12/31/20 03:00 12/31/20 03:00 12/31/20 03:00 Oxygen Flow Rate (L/min) 2 Oxygen Delivery Method Room Air Weight: 116.12 kg Body Mass Index (BMI) 36.7 Intake & Output: Intake and Output for Last 24 Hours 12/29/20 12/30/20 12/31/20 23:59 23:59 22:59 Intake Total 3075 / 3075 3033.33 / 3033.33 2045 / 2045 Output Total 2125 / 2125 1365 / 1365 1160 / 1160 Balance 950 / 950 1668.33 / 1668.33 885 / 885 Lab / Micro Data Result Diagrams: 12/31/20 08:38 12/31/20 08:38 Micro: Microbiology 12/29/20 16:17 Cyst - Other Gram Stain - Final 12/29/20 16:17 Cyst - Other Wound Culture - Preliminary Beta streptococcus 12/27/20 01:10 Fluid - Other Gram Stain - Final 12/27/20 01:10 Fluid - Other Body Fluid Culture - Final Streptococcus group A 12/27/20 01:10 Fluid - Other Anaerobic Culture - Final No anaerobic bacteria isolated. 12/26/20 22:00 Urine, Midstream Urine Culture - Final Culture exhibits no growth. 12/26/20 22:20 Blood Culture (Wb) - Left Forearm Blood Culture - Preliminary No growth in 48 hours. 12/26/20 22:16 Blood Culture (Wb) - Anticubital Left Blood Culture - Preliminary No growth in 48 hours. 12/26/20 11:50 Urine, Clean Catch Urine Culture - Final Culture exhibits no growth. 12/27/20 01:30 Nasal Secretion SARS-CoV-2 Antigen (Rapid) - Final Physical Exam Narrative GENERAL: cooperative HEENT: Atraumatic; EYES; Anicteric, Normal Conjunctiva NECK; supple, normal thyroid, RESPIRATORY: Diminished to auscultation CARDIOVASCULAR: Regular S1 S2, GI: soft, normoactive bowel sounds, : GILBERT drain right flank EXTREMITIES: No edema, no clubbing, MUSCULOSKELETAL: no muscle waisting NEURO: Awake; no lateralizing signs. SKIN: No Rash PSYCH; Flat affect Assessment & Plan Assessment/Plan (1) Cystic kidney disease: (2) Leukocytosis: QUALIFIERS: Leukocytosis type: unspecified Qualified Code(s): D72.829 - Elevated white blood cell count, unspecified (3) MIKAYLA (acute kidney injury): (4) Acute respiratory failure with hypoxia: PLAN: Patient is a 45-year-old male gentleman admitted with right-sided p ain. Patient was found to have a large right renal cyst for which he underwent CT-guided percutaneous drainage with 1400 cc of dark old blood/hemosiderin like fluid drained. He was also found to have leukocytosis with WBC count of twenty 6.7K subsequently placed on broad-spectrum antibiotic therapy 1. Large right renal cyst ?Infectious versus malignancy. Patient underwent percutaneous CT-guided drainage with nephrostomy tube left in place. Patient was admitted by urology. Plan is for patient to undergo laparoscopic cyst decortication and removal of cyst on 12/29/2020 -12/28/2020atient seen still complains of right flank discomfort. WBC count trending down down to 17.3 -12/29/2020; Patient seen scheduled to undergo decortication of his right renal cyst -12/30/2020; patient underwent Laparoscopic converted to open renal exploration cyst decortication and evacuation of abscess from kidney placement of surgical drains.. Cultures obtained on 12/27/2020 came back positive for Streptococcus group A. Remains on appropriate antibiotic therapy -12/31/2020; Patient seen, pain is tolerable. WBC count trending up. Cultures obtained from his cyst grew beta strep; previous culture had grown group B strep. Remains on broad-spectrum antibiotic therapy. 2. Leukocytosis ?Thought to be secondary to above currently on broad-spectrum antibiotic therapy cultures sent ?12/28/2020 WBC count down to 17.3 3. Renal failure ?Baseline creatinine unknown kidney function on admission was 1.73 up to 2.17 currently on IV fluid with daily BMPs ordered ?12/28/2020. Patient creatinine continues to worsen up to 2.53 consult subsequently placed to nephrology -12/30/2020 some improvement in patient's kidney function creatinine down to 1.85 ?12/31/2020; creatinine down to 1.48 4. Acute hypoxic respiratory failure ?Imaging studies obtained did not demonstrate any infiltrate patient was however significantly hypoxic with oxygen saturation 86% was placed on supplemental oxygen 6 L. Also did encourage the use of incentive spirometry 6. Obesity with BMI of 36.7 ?Weight loss advised 7. DVT prophylaxis -Did encourage early ambulation 8. Hypernatremia ?Adjusted patient IV fluid ?12/31/2020; sodium remains elevated at 147 9. Anemia - Secondary to acute blood loss anemia from his hemorrhagic cyst, monitoring H&H and transfuse if patient becomes symptomatic or hemoglobin falls below 7 Charges/Coding Visit Charges Inpatient E&M: 23557 Subs Hosp L3
[2020-12-31 08:51] LABS: Hematocrit 22.7 % (40-54); Hemoglobin 7.2 g/dL (13.0-16.5); Mean Corp Hgb Conc 31.7 g/dL (32-36); Mean Corpuscular Hgb 27.2 pg (27.0-32.0); Mean Corpuscular Volume 85.7 fL (80-94); POSITIVE COUNT YES; POSITIVE DIFFERENTIAL YES; POSITIVE MORPHOLOGY YES; Platelet Count 208 K/mm3 (150-450); RBC Distribution Width CV 15.9 % (11.6-14.6); RBC Distribution Width SD 49.1 fl (35.1-43.9); Red Blood Count 2.65 M/mm3 (4.6-6.2)
[2020-12-31 08:56] LABS: Differential Indicated MANUAL DIFF
[2020-12-31 09:10] LABS: Anion Gap 5 (5-15); BUN 44 mg/dL (7-18); BUN/Creat Ratio 29.7 RATIO (10-20); Calcium,Total 7.1 mg/dL (8.5-10.1); Chloride 118 mmol/L (98-107); Creatinine, Serum 1.48 mg/dL (0.70-1.30); EST Glomerular Filtration Rate 54 mL/min (>60); Est Glom Filt Rate - Afr Amer 66 mL/min (>60); Glucose 110 mg/dL (74-106); Magnesium 2.6 mg/dL (1.6-2.6); Potassium 3.9 mmol/L (3.5-5.1); Sodium Level 147 mmol/L (136-145)
[2020-12-31 09:43] LABS: Lymphocyte 12 % (19-41); Metamyelocyte 1 % (0-1); Monocyte 10 % (0-10); Myelocyte 4 % (0-0); Neutrophil-Band 1 % (0-5); Neutrophil-Segmented 72 % (47-70); Total Cells Counted 100 (MANUAL DIFF)
[2020-12-31 09:44] LABS: Absolute Neutrophil Count 18.2 X10^3/uL (2.0-7.7); Hypochromasia 3+; Platelet Estimate ADEQUATE (ADEQ)
[2020-12-31 09:45] LABS: Absolute Lymphocyte Count 3.36 X10^3/uL (0.83-4.51)
[2020-12-31 10:30] LABS: Platelet Count 206 K/mm3 (150-450); RET-HE 24.5 pg (30-35); Reticulocyte Count 1.23 % (0.5-1.5)
[2020-12-31 10:35] LABS: Ferritin 1480 ng/mL (26-388); Iron 22 ug/dL (65-175); Iron Binding Capacity,Total 233 ug/dL (250-450); PERCENT IRON SATURATION 9.4 % (15.0-55.0)
--- NOTE | 2020-12-31 11:47 | PCM.PN.GU ---
Subjective Subjective Postoperative day #2 status post open exploration of infected renal cyst abscess, NG output has been fairly low so NG was removed today his abdomen is soft and benign no gas flatus or bowel movement yet but I will go to remove the NG tube he can continue with just liquids water and ice small amounts for now continue with IV antibiotics. Encourage ambulation. Will slow down IV fluids clinically stable and improving. Objective Data Objective Data Vital Signs: Vital Signs Temp Pulse Resp BP Pulse Ox 97.9 F 79 16 152/84 H 97 12/31/20 10:03 12/31/20 11:08 12/31/20 10:03 12/31/20 10:03 12/31/20 10:03 Oxygen Flow Rate (L/min) 2 Oxygen Delivery Method Room Air Weight: 116.12 kg Body Mass Index (BMI) 36.7 Intake & Output: Intake and Output for Last 24 Hours 12/29/20 12/30/20 12/31/20 23:59 23:59 22:59 Intake Total 3075 / 3075 3033.33 / 3033.33 2205 / 2205 Output Total 2125 / 2125 1365 / 1365 1220 / 1220 Balance 950 / 950 1668.33 / 1668.33 985 / 985 Lab / Micro Data Result Diagrams: 12/31/20 08:38 12/31/20 08:38 Labs: Laboratory Results - last 24 hr 12/31/20 08:38: WBC 25.0 H, RBC 2.65 L, Hgb 7.2 L, Hct 22.7 L, MCV 85.7, MCH 27.2, MCHC 31.7 L, RDW Std Deviation 49.1 H, RDW Coeff of Colin 15.9 H, Plt Count 208, MPV 12.0, Neut % (Auto) Not Reportable, Absolute Neuts (auto) 18.2 H, Absolute Lymphs (auto) 3.36, Total Counted 100, Neutrophils % (Manual) 72 H, Band Neutrophils % 1, Lymphocytes % (Manual) 12 L, Monocytes % (Manual) 10, Metamyelocytes % 1, Myelocytes % 4 H, Diff Path Review June, Platelet Estimate ADEQUATE, Hypochromasia 3+ 12/31/20 08:38: Sodium 147 H, Potassium 3.9, Chloride 118 H, Carbon Dioxide 24.0, Anion Gap 5, BUN 44 H, Creatinine 1.48 H, Estim Creat Clear Calc 64.40, Est GFR (MDRD) Af Amer 66, Est GFR (MDRD) Non-Af 54 L, BUN/Creatinine Ratio 29.7 H, Glucose 110 H, Calcium 7.1 L, Magnesium 2.6 12/31/20 08:38: Retic Count 1.23, Immature Retic Fraction 45.90 H, Retic Hgb Equivalent 24.5 L 12/31/20 08:38: Iron 22 L, TIBC 233 L, Iron Saturation 9.4 L, Ferritin 1480 H Micro: Microbiology 12/29/20 16:17 Cyst - Other Gram Stain - Final 12/29/20 16:17 Cyst - Other Wound Culture - Final Streptococcus group A 12/27/20 01:10 Fluid - Other Gram Stain - Final 12/27/20 01:10 Fluid - Other Body Fluid Culture - Final Streptococcus group A 12/27/20 01:10 Fluid - Other Anaerobic Culture - Final No anaerobic bacteria isolated. 12/26/20 22:00 Urine, Midstream Urine Culture - Final Culture exhibits no growth. 12/26/20 22:20 Blood Culture (Wb) - Left Forearm Blood Culture - Preliminary No growth in 48 hours. 12/26/20 22:16 Blood Culture (Wb) - Anticubital Left Blood Culture - Preliminary No growth in 48 hours. 12/26/20 11:50 Urine, Clean Catch Urine Culture - Final Culture exhibits no growth. 12/27/20 01:30 Nasal Secretion SARS-CoV-2 Antigen (Rapid) - Final Physical Exam Const alert and oriented x3 General Appearance: cooperative HEENT normocephalic, head/scalp atraumatic, EAC's normal and TM's normal bilaterally Eyes PERRL and EOMs intact bilaterally Pupil: sluggish Neck no lymphadenopathy, supple and no JVD General: trachea midline Lymph Lymphatic: no lymphadenopathy noted, lymphedema and lymphadenopathy Resp normal respiratory effort, normal air movement and clear to auscultation bilaterally Cardio regular rate, regular rhythm and peripheral pulses 2+ throughout GI soft to palpation, non-tender and non-distended Extremity normal capillary refill and no clubbing, cyanosis or edema General Extremity: no tenderness to palpation of joints or extremities Skin no rashes or lesions noted General Skin Exam: turgor normal Lesions: no lesions Rashes: no rashes Neuro CN's II-XII intact bilaterally Speech: speech normal Motor Exam: strength 5/5 throughout; Negative for general weakness Psych thought process normal, cooperative and affect normal Appearance: appropriate Assessment & Plan Assessment/Plan (1) Renal abscess: (2) Leukocytosis: QUALIFIERS: Leukocytosis type: unspecified Qualified Code(s): D72.829 - Elevated white blood cell count, unspecified (3) Sepsis: (4) Cystic kidney disease:
[2020-12-31] MEDS: 0.45% Normal Saline 1,000 ML 50 ML IV (17:34)
[2020-12-31] MEDS: Acetaminophen 500 MG Tablet PO (21:39)
[2021-01-01] VITALS (11 sets, daily range): BP systolic 126–156; BP diastolic 80–91; PULSE 89–103; RESP 16–20; TEMP 36.6–37.2; O2SAT 94–99
[2021-01-01] MEDS: Acetaminophen 500 MG Tablet PO ×3 (03:46→18:35)
[2021-01-01] MEDS: Piperacil/Tazobactam 3.375 GM/50 ML ML IV ×3 (05:52→21:06)
--- NOTE | 2021-01-01 06:11 | PCM.PN.GU ---
Subjective Subjective 45-year-old male status post drainage of ruptured renal abscess cultures are coming back a Streptococcus pansensitive continue with Zosyn which will cover Streptococcus. Passing gas abdomen is nice and soft and benign bowel sounds. Will advance to regular diet. GILBERT drainage is minimal. Urine output is good Lopez catheter is out. He is out of bed he says he started feeling better. Patient started to progress at this point we will continue with IV antibiotics to treat his infection advance to regular diet Hep-Lock his IV fluids encourage ambulation. Objective Data Objective Data Vital Signs: Vital Signs Temp Pulse Resp BP Pulse Ox 99 F 89 17 148/89 H 97 01/01/21 04:00 01/01/21 04:00 01/01/21 04:00 01/01/21 04:00 01/01/21 04:00 Oxygen Flow Rate (L/min) 2 Oxygen Delivery Method Room Air Weight: 116.12 kg Body Mass Index (BMI) 36.7 Intake & Output: Intake and Output for Last 24 Hours 12/31/20 12/31/20 01/01/21 00:59 23:59 23:59 Intake Total 1104.17 / 1104.17 Output Total 1100 / 1100 Balance 4.17 / 4.17 Lab / Micro Data Result Diagrams: 12/31/20 08:38 12/31/20 08:38 Labs: Laboratory Results - last 24 hr 12/31/20 08:38: WBC 25.0 H, RBC 2.65 L, Hgb 7.2 L, Hct 22.7 L, MCV 85.7, MCH 27.2, MCHC 31.7 L, RDW Std Deviation 49.1 H, RDW Coeff of Colin 15.9 H, Plt Count 208, MPV 12.0, Neut % (Auto) Not Reportable, Absolute Neuts (auto) 18.2 H, Absolute Lymphs (auto) 3.36, Total Counted 100, Neutrophils % (Manual) 72 H, Band Neutrophils % 1, Lymphocytes % (Manual) 12 L, Monocytes % (Manual) 10, Metamyelocytes % 1, Myelocytes % 4 H, Diff Path Review June, Platelet Estimate ADEQUATE, Hypochromasia 3+ 12/31/20 08:38: Sodium 147 H, Potassium 3.9, Chloride 118 H, Carbon Dioxide 24.0, Anion Gap 5, BUN 44 H, Creatinine 1.48 H, Estim Creat Clear Calc 64.40, Est GFR (MDRD) Af Amer 66, Est GFR (MDRD) Non-Af 54 L, BUN/Creatinine Ratio 29.7 H, Glucose 110 H, Calcium 7.1 L, Magnesium 2.6 12/31/20 08:38: Retic Count 1.23, Immature Retic Fraction 45.90 H, Retic Hgb Equivalent 24.5 L 12/31/20 08:38: Iron 22 L, TIBC 233 L, Iron Saturation 9.4 L, Ferritin 1480 H Micro: Microbiology 12/29/20 16:17 Cyst - Other Gram Stain - Final 12/29/20 16:17 Cyst - Other Wound Culture - Final Streptococcus group A 12/27/20 01:10 Fluid - Other Gram Stain - Final 12/27/20 01:10 Fluid - Other Body Fluid Culture - Final Streptococcus group A 12/27/20 01:10 Fluid - Other Anaerobic Culture - Final No anaerobic bacteria isolated. 12/26/20 22:00 Urine, Midstream Urine Culture - Final Culture exhibits no growth. 12/26/20 22:20 Blood Culture (Wb) - Left Forearm Blood Culture - Preliminary No growth in 48 hours. 12/26/20 22:16 Blood Culture (Wb) - Anticubital Left Blood Culture - Preliminary No growth in 48 hours. 12/26/20 11:50 Urine, Clean Catch Urine Culture - Final Culture exhibits no growth. 12/27/20 01:30 Nasal Secretion SARS-CoV-2 Antigen (Rapid) - Final Physical Exam Const alert and oriented x3 General Appearance: cooperative HEENT normocephalic and head/scalp atraumatic Eyes PERRL and EOMs intact bilaterally Neck supple, no JVD and no carotid bruits Resp normal respiratory effort, normal air movement and clear to auscultation bilaterally Cardio regular rate and no murmurs GI normal to inspection, nondistended, normoactive bowel sounds and soft to palpation Extremity normal capillary refill General Extremity: no tenderness to palpation of joints or extremities; Negative for edema Skin no rashes or lesions noted and no wounds General Skin Exam: no breakdown Neuro CN's II-XII intact bilaterally Psych affect normal Appearance: appropriate Assessment & Plan Assessment/Plan (1) Renal abscess: (2) MIKAYLA (acute kidney injury): (3) Leukocytosis: QUALIFIERS: Leukocytosis type: unspecified Qualified Code(s): D72.829 - Elevated white blood cell count, unspecified (4) Sepsis: (5) Cystic kidney disease:
[2021-01-01] MEDS: oxyCODONE 5 MG Tablet PO ×2 (08:20→18:36)
[2021-01-01] MEDS: Docusate Sodium 100 MG Capsule PO ×2 (08:20→21:06)
[2021-01-01 09:11] LABS: Vitamin B12 578 pg/mL (211-911)
[2021-01-01 12:00] LABS: Hematocrit 20.9 % (40-54); Hemoglobin 6.8 g/dL (13.0-16.5); Mean Corp Hgb Conc 32.5 g/dL (32-36); Mean Corpuscular Hgb 27.9 pg (27.0-32.0); Mean Corpuscular Volume 85.7 fL (80-94); Mean Platelet Vol. 11.4 fl (6.2-12.0); POSITIVE COUNT YES; POSITIVE DIFFERENTIAL YES; POSITIVE MORPHOLOGY YES; Platelet Count 278 K/mm3 (150-450); RBC Distribution Width CV 15.8 % (11.6-14.6); RBC Distribution Width SD 48.1 fl (35.1-43.9); Red Blood Count 2.44 M/mm3 (4.6-6.2); White Blood Count 28.4 K/mm3 (4.4-11.0)
[2021-01-01 12:06] LABS: Differential Indicated MANUAL DIFF
[2021-01-01 12:27] LABS: Lymphocyte 13 % (19-41); Metamyelocyte 5 % (0-1); Monocyte 12 % (0-10); Myelocyte 3 % (0-0); Neutrophil-Segmented 67 % (47-70); Total Cells Counted 100 (MANUAL DIFF)
[2021-01-01 12:28] LABS: Microcytosis 1+; Platelet Estimate ADEQUATE (ADEQ); Red Cell Morphology NORM C+C NORMAL (NORM C&C)
[2021-01-01 12:31] LABS: Absolute Neutrophil Count 5.6 X10^3/uL (2.0-7.7)
--- NOTE | 2021-01-01 15:06 | PN.HOSP_ITS ---
Subjective Subjective Patient reports that overall clinically he is improving. He has no specific complaints today. Objective Data Objective Data Vital Signs: Vital Signs Temp Pulse Resp BP Pulse Ox 97.9 F 89 16 126/84 H 99 01/01/21 10:00 01/01/21 10:00 01/01/21 10:00 01/01/21 10:00 01/01/21 10:00 Oxygen Flow Rate (L/min) 2 Oxygen Delivery Method Room Air Weight: 116.12 kg Body Mass Index (BMI) 36.7 Intake & Output: Intake and Output for Last 24 Hours 12/31/20 12/31/20 01/01/21 00:59 23:59 23:59 Intake Total 1390.00 / 1390.00 Output Total 1130 / 1130 Balance 260.00 / 260.00 Lab / Micro Data Result Diagrams: 01/01/21 11:50 12/31/20 08:38 Labs: Laboratory Results - last 24 hr 01/01/21 05:55: Vitamin B12 578 01/01/21 11:50: WBC 28.4 H, RBC 2.44 L, Hgb 6.8 L, Hct 20.9 L, MCV 85.7, MCH 27.9, MCHC 32.5, RDW Std Deviation 48.1 H, RDW Coeff of Colin 15.8 H, Plt Count 278, MPV 11.4, Neut % (Auto) Not Reportable, Absolute Neuts (auto) 5.6, Absolute Lymphs (auto) 1.10, Total Counted 100, Neutrophils % (Manual) 67, Lymphocytes % (Manual) 13 L, Monocytes % (Manual) 12 H, Metamyelocytes % 5 H, Myelocytes % 3 H , Diff Path Review May , Platelet Estimate ADEQUATE, RBC Morphology NORM C+C, Microcytosis 1+ Micro: Microbiology 12/29/20 16:17 Cyst - Other Gram Stain - Final 12/29/20 16:17 Cyst - Other Wound Culture - Final Streptococcus group A 12/29/20 16:17 Cyst - Other Anaerobic Culture - Final No anaerobic bacteria isolated. 12/26/20 22:20 Blood Culture (Wb) - Left Forearm Blood Culture - Final No growth in 5 days. 12/26/20 22:16 Blood Culture (Wb) - Anticubital Left Blood Culture - Final No growth in 5 days. 12/27/20 01:10 Fluid - Other Gram Stain - Final 12/27/20 01:10 Fluid - Other Body Fluid Culture - Final Streptococcus group A 12/27/20 01:10 Fluid - Other Anaerobic Culture - Final No anaerobic bacteria isolated. 12/26/20 22:00 Urine, Midstream Urine Culture - Final Culture exhibits no growth. 12/26/20 11:50 Urine, Clean Catch Urine Culture - Final Culture exhibits no growth. 12/27/20 01:30 Nasal Secretion SARS-CoV-2 Antigen (Rapid) - Final Physical Exam Const alert, oriented x3 and no apparent distress Constitutional Narrative: Obese white male sitting up in a chair, reclined, appears comfortable and nontoxic at this time Exam Limitations: no limitations Nutritional Appearance: obese HEENT head/scalp atraumatic and moist oral mucous membranes Head and Scalp: normocephalic Eyes PERRL and EOMs intact bilaterally Eyes Narrative: Conjunctiva mildly pale, no scleral icterus Neck no lymphadenopathy, supple and no JVD Neck Narrative: Trachea midline, no thyroid enlargement Resp normal respiratory effort, no retractions, no use of accessory muscles and clear to auscultation bilaterally Resp Narrative: Patient on room air Auscultation: Negative for crackles, rales, rhonchi or wheezes Cardio regular rate, regular rhythm, S1 normal heart sound, S2 normal heart sound, no murmurs, no rub, no gallops, no clicks and no JVD GI normal to inspection, nondistended, normoactive bowel sounds, soft to palpation, non-tender and non-distended Extremity no clubbing, cyanosis or edema Peripheral Pulses: Yes pulses 2+ throughout Skin no rashes or lesions noted, no wounds, skin turgor normal, no jaundice, no petechiae and no mottling Neuro oriented x3, CN's II-XII intact bilaterally, moves all extremities and no focal motor deficits Sensorium / Orientation: awake and alert Speech: speech normal Psych affect normal Assessment & Plan Assessment/Plan (1) Acute anemia: (2) Renal abscess: (3) MIKAYLA (acute kidney injury): (4) Leukocytosis: QUALIFIERS: Leukocytosis type: unspecified Qualified Code(s): D72.829 - Elevated white blood cell count, unspecified (5) Cystic kidney disease: PLAN: Large right renal cysts -Status post CT-guided drainage with nephrostomy tube placement on 12/29/[address] Reilly -12/30/2020 patient underwent laparoscopic converted to open renal exploration of cyst decortication and evacuation of abscess from the kidney with placement of surgical drains -Cultures are currently showing group A streptococcus -Continue Zosyn at this time -Patient clinically is feeling better Group A strep renal abscess -Appears to be pansensitive -Continue Zosyn -If white count continues to trend up we will consider consultation infectious disease -Patient is clinically improving Leukocytosis -Currently uptrending -Unclear why at this time -Patient is clinically improving -Continue Zosyn at this time -Repeat CBC in a.m. -If remains elevated consider repeat cultures and consult to infectious disease -Check CT of abdomen and pelvis Acute anemia -Hemoglobin has dropped steadily since admission -Likely some of this is due to fluid drained but concerning given continued drop -Reticulocyte count was performed yesterday and is markedly elevated leading me to believe that the patient has continued bleeding -Iron studies obtained and show a low iron and iron saturation as well as TIBC but an elevated ferritin -Elevated ferritin may be related to infection -Check CT of the abdomen pelvis -Transfuse 1 unit and repeat CBC in a.m. MIKAYLA -Baseline serum creatinine is unknown -Current serum creatinine is down to 1.58 -May be transposed on CKD -Nephrology is following -Urine output is good DVT prophylaxis -SCDs -Ambulation CODE STATUS -Full code Charges/Coding Visit Charges Inpatient E&M: 61300 Subs Hosp L3
--- NOTE | 2021-01-01 15:10 | CT_ITS ---
STUDY: CT ABDOMEN AND PELVIS WITHOUT CONTRAST REASON FOR EXAM: Male, 45 years old. acute anemia with recent CT guided drainage RADIATION DOSAGE (If Supplied By Facility): CTDIvol = ( 22.18 ) mGy, DLP = ( 1241.06 ) mGycm TECHNIQUE: Transaxial images were obtained from the dome of the diaphragm to the symphysis pubis without oral contrast, and without intravenous contrast. Sagittal and coronal images were reconstructed. Individualized dose optimization techniques were used for this CT. COMPARISON: 12/26/2020 FINDINGS: Moderate right pleural effusion with right lower lobe atelectasis. The visualized portions of the heart are within normal limits. Normal liver. There are multiple gallstones. Normal spleen. Normal pancreas. Normal bilateral adrenal glands. Recent postsurgical changes to the right kidney in Morison''s space with 2 surgical drains, possible packing material, fluid, and some gas including fluid and gas surrounding the liver. Normal left kidney. Normal visualized stomach. Normal small intestine. Normal colon. There is non-visualization of the appendix. Normal abdominal aorta. Normal inferior vena cava. Normal retroperitoneum. Normal urinary bladder. Normal abdominal wall. Normal osseous structures. CT/Abdomen/Pelvis without Cont IMPRESSION: Recent postsurgical changes to the posterior aspect of the right kidney and extending superiorly into Morison''s space with 2 surgical drains, possible packing material, fluid and gas. Some fluid and gas surrounding the liver. Moderate right pleural effusion with right lower lobe atelectasis. Electronically Signed: Josh Caceres MD at 17:14 EST Tel , Service support ,
[2021-01-02] VITALS (12 sets, daily range): BP systolic 119–156; BP diastolic 81–106; PULSE 88–105; RESP 18–38; TEMP 36.9–37.6; O2SAT 88–97; BMI 35.6
[2021-01-02 05:24] LABS: Hematocrit 23.7 % (40-54); Hemoglobin 7.7 g/dL (13.0-16.5); Mean Corp Hgb Conc 32.5 g/dL (32-36); Mean Corpuscular Hgb 27.4 pg (27.0-32.0); Mean Corpuscular Volume 84.3 fL (80-94); Mean Platelet Vol. 11.7 fl (6.2-12.0); POSITIVE COUNT YES; POSITIVE DIFFERENTIAL YES; POSITIVE MORPHOLOGY YES; Platelet Count 402 K/mm3 (150-450); RBC Distribution Width CV 15.7 % (11.6-14.6); Red Blood Count 2.81 M/mm3 (4.6-6.2)
[2021-01-02 05:30] LABS: White Blood Count 35.3 K/mm3 (4.4-11.0)
[2021-01-02 05:31] LABS: Differential Indicated MANUAL DIFF
[2021-01-02 05:47] LABS: Anion Gap 5 (5-15); BUN 24 mg/dL (7-18); BUN/Creat Ratio 16.7 RATIO (10-20); Calcium,Total 7.5 mg/dL (8.5-10.1); Chloride 108 mmol/L (98-107); Creatinine, Serum 1.44 mg/dL (0.70-1.30); EST Glomerular Filtration Rate 56 mL/min (>60); Est Glom Filt Rate - Afr Amer 68 mL/min (>60); Estimated Creatinine Clearance 66.18 ml/min; Glucose 114 mg/dL (74-106); Potassium 3.6 mmol/L (3.5-5.1); Sodium Level 137 mmol/L (136-145)
[2021-01-02 05:53] LABS: Lymphocyte 8 % (19-41); Metamyelocyte 1 % (0-1); Monocyte 3 % (0-10); Myelocyte 5 % (0-0); Neutrophil-Band 2 % (0-5); Neutrophil-Segmented 80 % (47-70); Promyelocyte 1 % (0-0); Total Cells Counted 100 (MANUAL DIFF)
[2021-01-02 05:54] LABS: Nucleated Red Bld Cells,Manual 2 % (0-5); Platelet Estimate ADEQUATE (ADEQ)
[2021-01-02 05:55] LABS: Hypochromasia 1+; Toxic Granulation RARE
[2021-01-02 05:56] LABS: Lymphocyte # 2.83 X10^3/ul (0.83-4.51); Neutrophil # 28.97 X10^3/uL (2.7-7.7); Polychromasia RARE
[2021-01-02 05:57] LABS: Absolute Lymphocyte Count 2.83 X10^3/uL (0.83-4.51)
[2021-01-02] MEDS: Piperacil/Tazobactam 3.375 GM/50 ML ML IV (06:30)
--- NOTE | 2021-01-02 07:46 | PN.URO_ITS ---
Subjective Subjective 45-year-old male status post open exploration for renal abscess that was intraperitoneal and we washed him out completely. Yesterday he looked really good his abdomen was nice and soft and benign he had some appetite bowel sounds were going he passed some gas so we advance him to regular diet unfortunately this morning his belly is distended he is vomited greenish clear fluid his white count has spiked up to 35,000, at this point I have consulted general surgery they recommended a CT scan of the abdomen pelvis with IV and oral contrast which would be ordered today stat. He will have an NG tube replaced and will use the oral contrast through the NG tube will make him n.p.o. put her back on IV fluids. Objective Data Objective Data Vital Signs: Vital Signs Temp Pulse Resp BP Pulse Ox 99.3 F H 88 18 119/81 H 96 01/02/21 02:30 01/02/21 02:30 01/02/21 02:30 01/02/21 02:30 01/02/21 02:30 Oxygen Flow Rate (L/min) 2 Oxygen Delivery Method Room Air Weight: 116.12 kg Body Mass Index (BMI) 36.7 Intake & Output: Intake and Output for Last 24 Hours 12/31/20 01/01/21 01/02/21 23:59 23:59 23:59 Intake Total 1840.00 / 1840.00 1600 / 1600 Output Total 1335 / 1340 670 / 670 Balance 505.00 / 500.00 930 / 930 Lab / Micro Data Result Diagrams: 01/02/21 05:08 01/02/21 05:08 Labs: Laboratory Results - last 24 hr 01/01/21 05:55: Vitamin B12 578 01/01/21 11:50: WBC 28.4 H, RBC 2.44 L, Hgb 6.8 L, Hct 20.9 L, MCV 85.7, MCH 27.9, MCHC 32.5, RDW Std Deviation 48.1 H, RDW Coeff of Colin 15.8 H, Plt Count 278, MPV 11.4, Neut % (Auto) Not Reportable, Absolute Neuts (auto) 5.6, Absolute Lymphs (auto) 1.10, Total Counted 100, Neutrophils % (Manual) 67, Lymphocytes % (Manual) 13 L, Monocytes % (Manual) 12 H, Metamyelocytes % 5 H, Myelocytes % 3 H , Diff Path Review May foll, Platelet Estimate ADEQUATE, RBC Morphology NORM C+C, Microcytosis 1+ 01/01/21 16:24: Blood Type O POSITIVE, Antibody Screen NEGATIVE, Crossmatch See Detail 01/02/21 05:08: WBC 35.3 H*, RBC 2.81 L, Hgb 7.7 L, Hct 23.7 L, MCV 84.3, MCH 27.4, MCHC 32.5, RDW Std Deviation 47.0 H, RDW Coeff of Colin 15.7 H, Plt Count 402, MPV 11.7, Neut % (Auto) Not Reportable, Absolute Neuts (auto) 29.0 H, Absolute Lymphs (auto) 2.83, Total Counted 100, Neutrophils % (Manual) 80 H, Band Neutrophils % 2, Lymphocytes % (Manual) 8 L, Monocytes % (Manual) 3, Metamyelocytes % 1, Myelocytes % 5 H, Promyelocytes % 1 H, Nucleated RBCs/100 WBC 2, Diff Path Review May kelsie, Toxic Granulation RARE, Platelet Estimate ADEQUATE, Polychromasia RARE, Hypochromasia 1+ 01/02/21 05:08: Sodium 137, Potassium 3.6, Chloride 108 H, Carbon Dioxide 24.0, Anion Gap 5, BUN 24 H, Creatinine 1.44 H, Estim Creat Clear Calc 66.18, Est GFR (MDRD) Af Amer 68, Est GFR (MDRD) Non-Af 56 L, BUN/Creatinine Ratio 16.7, Glucose 114 H, Calcium 7.5 L Micro: Microbiology 12/29/20 16:17 Cyst - Other Gram Stain - Final 12/29/20 16:17 Cyst - Other Wound Culture - Final Streptococcus group A 12/29/20 16:17 Cyst - Other Anaerobic Culture - Final No anaerobic bacteria isolated. 12/26/20 22:20 Blood Culture (Wb) - Left Forearm Blood Culture - Final No growth in 5 days. 12/26/20 22:16 Blood Culture (Wb) - Anticubital Left Blood Culture - Final No growth in 5 days. 12/27/20 01:10 Fluid - Other Gram Stain - Final 12/27/20 01:10 Fluid - Other Body Fluid Culture - Final Streptococcus group A 12/27/20 01:10 Fluid - Other Anaerobic Culture - Final No anaerobic bacteria isolated. 12/26/20 22:00 Urine, Midstream Urine Culture - Final Culture exhibits no growth. 12/26/20 11:50 Urine, Clean Catch Urine Culture - Final Culture exhibits no growth. 12/27/20 01:30 Nasal Secretion SARS-CoV-2 Antigen (Rapid) - Final Radiography Diagnostic Testing: Radiology Impression Abdomen/Pelvis CT 01/01/21 15:10 IMPRESSION: Recent postsurgical changes to the posterior aspect of the right kidney and extending superiorly into Morison''s space with 2 surgical drains, possible packing material, fluid and gas. Some fluid and gas surrounding the liver. Moderate right pleural effusion with right lower lobe atelectasis. Electronically Signed: Josh Caceres MD at 17:14 EST Tel , Service support , Physical Exam Const General Appearance: cooperative HEENT normocephalic Eyes PERRL and EOMs intact bilaterally Pupil: sluggish Neck no lymphadenopathy, supple and no JVD General: trachea midline Lymph Lymphatic: no lymphadenopathy noted, lymphedema and lymphadenopathy Resp normal respiratory effort Cardio regular rate, regular rhythm and peripheral pulses 2+ throughout GI GI Narrative: distended, no bowel sounds, very minimal Extremity normal capillary refill and no clubbing, cyanosis or edema General Extremity: no tenderness to palpation of joints or extremities Skin no rashes or lesions noted General Skin Exam: turgor normal Lesions: no lesions Rashes: no rashes Neuro CN's II-XII intact bilaterally Speech: speech normal Motor Exam: strength 5/5 throughout; Negative for general weakness Psych thought process normal, cooperative and affect normal Appearance: appropriate Assessment & Plan Assessment/Plan (1) MIKAYLA (acute kidney injury): (2) Leukocytosis: QUALIFIERS: Leukocytosis type: unspecified Qualified Code(s): D72.829 - Elevated white blood cell count, unspecified (3) Acute anemia:
[2021-01-02] MEDS: Ondansetron 4 MG/2 ML Vial IV (08:22)
[2021-01-02] MEDS: 0.9% Saline Lock 10 ML Syringe IV ×2 (08:22→11:44)
--- NOTE | 2021-01-02 08:42 | PCM.RX.CS ---
Consult Pharmacy has been consulted to manage selected antiobiotic: Vancomycin Type of Consult: New start Suspected Infection: Other Labs: Sodium 137 mmol/L (136-145) 01/02/21 05:08 Potassium 3.6 mmol/L (3.5-5.1) 01/02/21 05:08 Chloride 108 mmol/L (98-107) H 01/02/21 05:08 Carbon Dioxide 24.0 mmol/L (21.0-32.0) 01/02/21 05:08 Anion Gap 5 (5-15) 01/02/21 05:08 BUN 24 mg/dL (7-18) H 01/02/21 05:08 Creatinine 1.44 mg/dL (0.70-1.30) H 01/02/21 05:08 Est GFR (MDRD) Af Amer 68 mL/min (>60) 01/02/21 05:08 Est GFR (MDRD) Non-Af 56 mL/min (>60) L 01/02/21 05:08 BUN/Creatinine Ratio 16.7 RATIO (10-20) 01/02/21 05:08 Glucose 114 mg/dL (74-106) H 01/02/21 05:08 Vancomycin Trough 13.4 ug/mL (5.0-15.0) 12/28/20 18:25 Microbiology: Microbiology 12/29/20 16:17 Cyst - Other Gram Stain - Final 12/29/20 16:17 Cyst - Other Wound Culture - Final Streptococcus group A 12/29/20 16:17 Cyst - Other Anaerobic Culture - Final No anaerobic bacteria isolated. 12/26/20 22:20 Blood Culture (Wb) - Left Forearm Blood Culture - Final No growth in 5 days. 12/26/20 22:16 Blood Culture (Wb) - Anticubital Left Blood Culture - Final No growth in 5 days. 12/27/20 01:10 Fluid - Other Gram Stain - Final 12/27/20 01:10 Fluid - Other Body Fluid Culture - Final Streptococcus group A 12/27/20 01:10 Fluid - Other Anaerobic Culture - Final No anaerobic bacteria isolated. 12/26/20 22:00 Urine, Midstream Urine Culture - Final Culture exhibits no growth. 12/26/20 11:50 Urine, Clean Catch Urine Culture - Final Culture exhibits no growth. 12/27/20 01:30 Nasal Secretion SARS-CoV-2 Antigen (Rapid) - Final Goal Trough: 15-20 mcg/mL Pharmacy Plan for Drug Dosing: NEW START IV VANCOMYCIN Consulting Physician: Avery Kang Indication: Goal Trough: 15-20 SrCr: 1.44 CrCl: 82mls/min (using an adjusted body weight of 90kg) Comments: pt to receive a x1 dose of 1750mg (15mg/kg) on 01/02/21 at 0900 Vancomcyin Dose: using Clinical Pharmacology dosing calculator, based on pts weight and renal function, dose calculated to be 1500mg q12h. Calculated dose to give an estimated trough of 18 Pending Level: 01/03/21 at 2030 Pharmacy Service will continue to monitor and adjust dosing as required. Follow-Up Labs: Trough Vancomycin - 01/03/21 at 2030
[2021-01-02 08:54] LABS: Procalcitonin 6.13 ng/mL (0.00-0.09)
[2021-01-02] MEDS: Lidocaine 4% 5 ML Ampul 2 ML INHALATION (08:59)
--- NOTE | 2021-01-02 09:00 | RAD_ITS ---
STUDY: X-RAY - ABDOMEN/PELVIS REASON FOR EXAM: Male, 45 years old. NGT placement -- KUB with both diaphragms for NG/OG Verification TECHNIQUE: Single AP view of the abdomen / pelvis. COMPARISON: Comparison is made with prior study dated 12/29/2020. FINDINGS: Increased markings at the lung bases suggestive of bibasilar atelectasis. The tip of the orogastric tube is in the left upper quadrant most likely within the body of the stomach. A drainage catheter is seen in the right upper quadrant. There is an unremarkable bowel gas pattern. RAD/Abdomen Single View (Portable) IMPRESSION: The tip of the orogastric tube is in body of the stomach. A drainage catheter is seen in the right upper quadrant. Electronically Signed: Tom Rivero MD at 9:47 EST , Service support ,
[2021-01-02] MEDS: Oxymetazoline 0.05% 1 SPRAY SPRAY.BTL 2 SPRAY NASAL (09:03)
[2021-01-02] MEDS: 0.9% Normal Saline 1,000 ML 100 ML IV (09:03)
--- NOTE | 2021-01-02 10:00 | NURSING ---
Pt had vomited on his gown and also had approx 300ml emesis in bag. New orders were received this morning for NGT to be placed. After NGT placed, gown was replaced and pt was washed up. New linens placed on bed after getting pt to the chair. Pt feeling much better now that NGT was placed. 850ml immediate green drainage from NGT after being placed. Continues at [facility]. Pt does report pain, will speak with MD regarding pain meds to be changed to IV instead of oral.
--- NOTE | 2021-01-02 11:09 | PCM.CONS.GEN ---
Assessment & Plan Assessment/Plan (1) Renal abscess: PLAN: GAS infection. Now s/p CT guided aspiration 12/27 and OR 12/[address] Reilly. Worsened pain, worsened wbc. Now on vanc/cefepime; feeling better this AM with NG in place. MIKAYLA improved. If he does not continue to improve, recommend gen surg eval. Will follow, thank you. Encouraged covid vaccine, he is not interested. (2) MIKAYLA (acute kidney injury): HPI Consult Data Date of Consult: 01/02/21 HPI Narrative HPI Narrative: RANDELL FULLER, is a 45 M who presented to [place] 12/26 with 1-2 days progressive R sided abd pain, fever, shakes. Pain was severe, found to have R renal abscess, transferred here, had CT guided drainage 12/27 with cx showing GAS. Treated with zosyn. Taken to OR 12/[address] Reilly, converted to open procedure for renal exploration, cyst decortication, and evacuation of abscess from kidney with placement of surgical drains. Surg cx also with GAS. 01/01 had worsening abd pain, nausea. Repeat CT done, NG placed. Feeling better this AM, passing some gas. No fever. Unvaccinated for covid. Full ROS performed and neg except as noted above. [facility] Medical History Migraines Medical History no medical history Allergy/AdvReac Type Severity Reaction Status Date / Time No Known Allergies Allergy Verified 12/26/20 11:50 Family History (Updated 12/27/20 @ 05:[address] Kemal Jackson DO) Grandmother Cancer Other Diabetes Social History (Updated 12/27/20 @ 05:[address] Kemal Jackson DO) Smoking Status: Never smoker alcohol intake: current alcohol intake frequency: a few times a month Physical Exam Const alert General Appearance: cooperative Exam Limitations: no limitations HEENT normocephalic and head/scalp atraumatic Eyes PERRL and EOMs intact bilaterally Neck supple and No nodes Resp normal air movement and clear to auscultation bilaterally Cardio regular rate and regular rhythm GI GI Narrative: soft, mild tenderness, incision and drain sites doing well Extremity no clubbing, cyanosis or edema Skin no rashes or lesions noted Neuro CN's II-XII intact bilaterally Lab / Micro Data Result Diagrams: 01/02/21 05:08 01/02/21 05:08 Labs: Laboratory Results - last 24 hr 01/01/21 11:50: WBC 28.4 H, RBC 2.44 L, Hgb 6.8 L, Hct 20.9 L, MCV 85.7, MCH 27.9, MCHC 32.5, RDW Std Deviation 48.1 H, RDW Coeff of Colin 15.8 H, Plt Count 278, MPV 11.4, Neut % (Auto) Not Reportable, Absolute Neuts (auto) 5.6, Absolute Lymphs (auto) 1.10, Total Counted 100, Neutrophils % (Manual) 67, Lymphocytes % (Manual) 13 L, Monocytes % (Manual) 12 H, Metamyelocytes % 5 H, Myelocytes % 3 H, Diff Path Review May foll, Platelet Estimate ADEQUATE, RBC Morphology NORM C+C, Microcytosis 1+ 01/01/21 16:24: Blood Type O POSITIVE, Antibody Screen NEGATIVE, Crossmatch See Detail 01/02/21 05:08: WBC 35.3 H*, RBC 2.81 L, Hgb 7.7 L, Hct 23.7 L, MCV 84.3, MCH 27.4, MCHC 32.5, RDW Std Deviation 47.0 H, RDW Coeff of Colin 15.7 H, Plt Count 402, MPV 11.7, Neut % (Auto) Not Reportable, Absolute Neuts (auto) 29.0 H, Absolute Lymphs (auto) 2.83, Total Counted 100, Neutrophils % (Manual) 80 H, Band Neutrophils % 2, Lymphocytes % (Manual) 8 L, Monocytes % (Manual) 3, Metamyelocytes % 1, Myelocytes % 5 H, Promyelocytes % 1 H, Nucleated RBCs/100 WBC 2, Diff Path Review May foll, Toxic Granulation RARE, Platelet Estimate ADEQUATE, Polychromasia RARE, Hypochromasia 1+ 01/02/21 05:08: Sodium 137, Potassium 3.6, Chloride 108 H, Carbon Dioxide 24.0, Anion Gap 5, BUN 24 H, Creatinine 1.44 H, Estim Creat Clear Calc 66.18, Est GFR (MDRD) Af Amer 68, Est GFR (MDRD) Non-Af 56 L, BUN/Creatinine Ratio 16.7, Glucose 114 H, Calcium 7.5 L 01/02/21 07:55: Procalcitonin 6.13 H Micro: Microbiology 12/29/20 16:17 Cyst - Other Gram Stain - Final 12/29/20 16:17 Cyst - Other Wound Culture - Final Streptococcus group A 12/29/20 16:17 Cyst - Other Anaerobic Culture - Final No anaerobic bacteria isolated. 12/26/20 22:20 Blood Culture (Wb) - Left Forearm Blood Culture - Final No growth in 5 days. 12/26/20 22:16 Blood Culture (Wb) - Anticubital Left Blood Culture - Final No growth in 5 days. Radiology Impression Abdomen/Pelvis CT 01/01/21 15:10 IMPRESSION: Recent postsurgical changes to the posterior aspect of the right kidney and extending superiorly into Morison''s space with 2 surgical drains, possible packing material, fluid and gas. Some fluid and gas surrounding the liver. Moderate right pleural effusion with right lower lobe atelectasis. Electronically Signed: Josh Caceres MD at 17:14 EST Tel , Service support , KUB X-Ray 01/02/21 09:00 IMPRESSION: The tip of the orogastric tube is in body of the stomach. A drainage catheter is seen in the right upper quadrant. Electronically Signed: Tom Rivero MD at 9:47 EST , Service support ,
--- NOTE | 2021-01-02 11:29 | NURSING ---
power equipment technology instructor called this RN and stated that the radiologist has a page out to Dr Reilly regarding the CT guided drainage of the renal abscess.
[2021-01-02] MEDS: HYDROmorphone 1 MG/ML Syringe IV (11:44)
[2021-01-02 12:38] LABS: Hematocrit 22.3 % (40-54); Hemoglobin 7.5 g/dL (13.0-16.5)
--- NOTE | 2021-01-02 13:03 | PCM.CONS.GEN ---
Assessment & Plan Assessment/Plan (1) Postoperative ileus: PLAN: I have been consulted in conjunction with Dr. Agustin. Plan to obtain a KUB to include pelvic views also. If patient does not improve tomorrow, plan is to obtain a CT scan of the ab/pel with IV and oral contrast. Patient is continuing to pass flatus. We will plan for conservative measures. Keep NG tube in place. Patient and his have had the opportunity to ask and have questions answered. Patient verbally understands and agrees with the plan. Thank you for allowing us to participate in this patient's care. HPI Consult Data Date of Consult: 01/02/21 HPI Narrative HPI Narrative: RANDELL FULLER, is a 45 M who was transferred from an outside hospital on 12/26/20 with right sided flank pain. CT scan demonstrated a massive cyst on the right kidney. Dr. Reilly performed a CT guided drainage of the cyst and removed 1200 cc of fluid. Patient continued to have pain and drainage had slowed down. He was scheduled for 12/29 for a laparoscopic converted to open renal exploration cyst decortication and evacuation of abscess. During surgery, it was noted the cyst had ruptured potentially during positioning of the patient on the operating table. Once the drain was removed, patient had large amount of drainage from the drain site and copious amounts of greenish fluid from his nose. An NG tube was placed during surgery. This was eventually removed on Friday. Patient was given a regular diet yesterday and noted having nausea and vomiting this morning. Per patient's , patient only was able to have sips of clears and some ice chips. He also tried a few bites of toast otherwise he did not eat anything significant. Patient had the NG tube replaced today. Per nursing staff, patient's abdominal pain has been a 5 out of 10. He was not currently having any abdominal pain during this practitioners visit. He is passing small amount of flatus. He has not had a normal bowel movement since last Friday, per patient's . Again a bowel prep was attempted, however little success was obtained. Patient's hgb decreased to 6.8 yesterday and he was given 1 unit PRBC. Infectious disease was consulted and changed the antibiotics. Patient's culture is returned as Strep. Patient's WBC has increased to 35,000 today. Patient did have a CT scan of the ab/pel yesterday demonstrating a continued fluid collection. No bowel obstruction noted. Patient is otherwise healthy. No medications. No previous cardiac or pulmonary history. He had an umbilical hernia repair with mesh in July 2019. Dr. Reilly has consulted our service for post-operative ileus. [facility] Medical History (Updated 01/02/21 @ 14:00 by Penelope VELASQUEZ PA-C) Migraines Postoperative ileus Medical History no medical history Allergy/AdvReac Type Severity Reaction Status Date / Time No Known Allergies Allergy Verified 12/26/20 11:50 Family History (Updated 12/27/20 @ 05:[address] Kemal Jackson DO) Grandmother Cancer Other Diabetes Social History (Updated 12/27/20 @ 05:[address] Kemal Jackson DO) Smoking Status: Never smoker alcohol intake: current alcohol intake frequency: a few times a month ROS Constitutional Constitutional: Reports systems reviewed and no addt'l complaints, except as documented Eyes Eyes: Reports systems reviewed and no addt'l complaints, except as documented ENT HEENT: Reports systems reviewed and no addt'l complaints, except as documented Cardiovascular Cardiovascular: Reports systems reviewed and no addt'l complaints, except as documented Respiratory/Chest Respiratory/Chest: Reports systems reviewed and no addt'l complaints, except as documented Gastrointestinal Gastrointestinal: Reports systems reviewed and no addt'l complaints, except as documented Genitourinary Genitourinary: Reports systems reviewed and no addt'l complaints, except as documented Musculoskeletal Musculoskeletal: Reports systems reviewed and no addt'l complaints, except as documented Integumentary Integumentary: Reports systems reviewed and no addt'l complaints, except as documented Neurologic Neurologic: Reports systems reviewed and no addt'l complaints, except as documented Psychiatric Psychiatric: Reports systems reviewed and no addt'l complaints, except as documented Endocrine Endocrinology: Reports systems reviewed and no addt'l complaints, except as documented Hematologic/Lymphatic Hematologic/Lymphatic: Reports systems reviewed and no addt'l complaints, except as documented Allergic/Immunologic Allergic/Immunologic: Reports systems reviewed and no addt'l complaints, except as documented Physical Exam Const alert and oriented x3 HEENT normocephalic HEENT Narrative: NG tube in place with dark bilious fluid noted Eyes PERRL Neck full ROM Lymph Lymphatic: no lymphadenopathy noted Chest inspection of chest normal Resp normal respiratory effort Cardio Rate: tachycardic Rhythm: regular rhythm GI GI Narrative: Right sided transverse incision intact with sharan. 2 GILBERT drains on right side of abdomen. Inspection: abdominal distention Auscultation: hypoactive bowel sounds Palpation: firm and tender other (very minimal near incision) Bladder / Kidney Exam: CVA tenderness Back/Spine normal ROM Extremity normal to inspection Skin Skin Narrative: left forearm with infiltration noted. Moderate amount of ecchymosis noted. Neuro oriented x3 and CN's II-XII intact bilaterally Psych mental status grossly normal Lab / Micro Data Result Diagrams: 01/02/21 12:25 01/02/21 05:08 Labs: Laboratory Results - last 24 hr 01/01/21 16:24: Blood Type O POSITIVE, Antibody Screen NEGATIVE, Crossmatch See Detail 01/02/21 05:08: WBC 35.3 H*, RBC 2.81 L, Hgb 7.7 L, Hct 23.7 L, MCV 84.3, MCH 27.4, MCHC 32.5, RDW Std Deviation 47.0 H, RDW Coeff of Oclin 15.7 H, Plt Count 402, MPV 11.7, Neut % (Auto) Not Reportable, Absolute Neuts (auto) 29.0 H, Absolute Lymphs (auto) 2.83, Total Counted 100, Neutrophils % (Manual) 80 H, Band Neutrophils % 2, Lymphocytes % (Manual) 8 L, Monocytes % (Manual) 3, Metamyelocytes % 1, Myelocytes % 5 H, Promyelocytes % 1 H, Nucleated RBCs/100 WBC 2, Diff Path Review May foll, Toxic Granulation RARE, Platelet Estimate ADEQUATE, Polychromasia RARE, Hypochromasia 1+ 01/02/21 05:08: Sodium 137, Potassium 3.6, Chloride 108 H, Carbon Dioxide 24.0, Anion Gap 5, BUN 24 H, Creatinine 1.44 H, Estim Creat Clear Calc 66.18, Est GFR (MDRD) Af Amer 68, Est GFR (MDRD) Non-Af 56 L, BUN/Creatinine Ratio 16.7, Glucose 114 H, Calcium 7.5 L 01/02/21 07:55: Procalcitonin 6.13 H Micro: Microbiology 12/29/20 16:17 Cyst - Other Gram Stain - Final 12/29/20 16:17 Cyst - Other Wound Culture - Final Streptococcus group A 12/29/20 16:17 Cyst - Other Anaerobic Culture - Final No anaerobic bacteria isolated. Radiology Impression Abdomen/Pelvis CT 01/01/21 15:10 IMPRESSION: Recent postsurgical changes to the posterior aspect of the right kidney and extending superiorly into Morison''s space with 2 surgical drains, possible packing material, fluid and gas. Some fluid and gas surrounding the liver. Moderate right pleural effusion with right lower lobe atelectasis. Electronically Signed: Josh Caceres MD at 17:14 EST Tel , Service support , KUB X-Ray 01/02/21 09:00 IMPRESSION: The tip of the orogastric tube is in body of the stomach. A drainage catheter is seen in the right upper quadrant. Electronically Signed: Tom Rivero MD at 9:47 EST , Service support , Charges/Coding Visit Charges Office Visits / Consults: 43290 IP Consult L3
--- NOTE | 2021-01-02 13:32 | PN.HOSP_ITS ---
Subjective Subjective Patient is feeling worse today. He started feeling poorly yesterday evening. He had an emesis this morning and Dr. Reilly has ordered an NG tube. There is concerned that he has a recurrent ileus. Apparently he had an ileus prior to his initial surgery. His white count has gone up dramatically and he did requir e a unit of blood transfused yesterday for hemoglobin of 6.8. A CT scan was performed and found no source of bleeding and his hemoglobin appears to have stabilized. Objective Data Objective Data Vital Signs: Vital Signs Temp Pulse Resp BP Pulse Ox 99.7 F H 95 18 132/91 H 96 01/02/21 10:25 01/02/21 10:25 01/02/21 10:25 01/02/21 10:25 01/02/21 10:25 Oxygen Flow Rate (L/min) 2 Oxygen Delivery Method Room Air Weight: 116.12 kg Body Mass Index (BMI) 36.7 Intake & Output: Intake and Output for Last 24 Hours 12/31/20 01/01/21 01/02/21 23:59 23:59 23:59 Intake Total 1840.00 / 1840.00 1750 / 1750 Output Total 1335 / 1340 1994 Balance 505.00 / 500.00 -245 / -245 Lab / Micro Data Result Diagrams: 01/02/21 12:25 01/02/21 05:08 Labs: Laboratory Results - last 24 hr 01/01/21 16:24: Blood Type O POSITIVE, Antibody Screen NEGATIVE, Crossmatch See Detail 01/02/21 05:08: WBC 35.3 H*, RBC 2.81 L, Hgb 7.7 L, Hct 23.7 L, MCV 84.3, MCH 27.4, MCHC 32.5, RDW Std Deviation 47.0 H, RDW Coeff of Colin 15.7 H, Plt Count 402, MPV 11.7, Neut % (Auto) Not Reportable, Absolute Neuts (auto) 29.0 H, Absolute Lymphs (auto) 2.83, Total Counted 100, Neutrophils % (Manual) 80 H, Band Neutrophils % 2, Lymphocytes % (Manual) 8 L, Monocytes % (Manual) 3, Metamyelocytes % 1, Myelocytes % 5 H, Promyelocytes % 1 H, Nucleated RBCs/100 WBC 2, Diff Path Review May foll, Toxic Granulation RARE, Platelet Estimate ADEQUATE, Polychromasia RARE, Hypochromasia 1+ 01/02/21 05:08: Sodium 137, Potassium 3.6, Chloride 108 H, Carbon Dioxide 24.0, Anion Gap 5, BUN 24 H, Creatinine 1.44 H, Estim Creat Clear Calc 66.18, Est GFR (MDRD) Af Amer 68, Est GFR (MDRD) Non-Af 56 L, BUN/Creatinine Ratio 16.7, Glucose 114 H, Calcium 7.5 L 01/02/21 07:55: Procalcitonin 6.13 H 01/02/21 12:25: Hgb 7.5 L, Hct 22.3 L Micro: Microbiology 12/29/20 16:17 Cyst - Other Gram Stain - Final 12/29/20 16:17 Cyst - Other Wound Culture - Final Streptococcus group A 12/29/20 16:17 Cyst - Other Anaerobic Culture - Final No anaerobic bacteria isolated. 12/26/20 22:20 Blood Culture (Wb) - Left Forearm Blood Culture - Final No growth in 5 days. 12/26/20 22:16 Blood Culture (Wb) - Anticubital Left Blood Culture - Final No growth in 5 days. 12/27/20 01:10 Fluid - Other Gram Stain - Final 12/27/20 01:10 Fluid - Other Body Fluid Culture - Final Streptococcus group A 12/27/20 01:10 Fluid - Other Anaerobic Culture - Final No anaerobic bacteria isolated. 12/26/20 22:00 Urine, Midstream Urine Culture - Final Culture exhibits no growth. 12/26/20 11:50 Urine, Clean Catch Urine Culture - Final Culture exhibits no growth. 12/27/20 01:30 Nasal Secretion SARS-CoV-2 Antigen (Rapid) - Final Radiography Diagnostic Testing: Radiology Impression Abdomen/Pelvis CT 01/01/21 15:10 IMPRESSION: Recent postsurgical changes to the posterior aspect of the right kidney and extending superiorly into Morison''s space with 2 surgical drains, possible packing material, fluid and gas. Some fluid and gas surrounding the liver. Moderate right pleural effusion with right lower lobe atelectasis. Electronically Signed: Josh Caceres MD at 17:14 EST Tel , Service support , KUB X-Ray 01/02/21 09:00 IMPRESSION: The tip of the orogastric tube is in body of the stomach. A drainage catheter is seen in the right upper quadrant. Electronically Signed: Tom Rivero MD at 9:47 EST , Service support , Physical Exam Const alert, oriented x3, no apparent distress and average body habitus Constitutional Narrative: Obese white male sitting up in bed with emesis on anterior aspect of gown, appears uncomfortable, nursing at bedside General Appearance: cooperative Exam Limitations: no limitations Nutritional Appearance: obese HEENT normocephalic, head/scalp atraumatic, hearing grossly normal bilaterally and moist oral mucous membranes Head and Scalp: normocephalic Eyes PERRL and EOMs intact bilaterally Eyes Narrative: Conjunctiva mildly pale, no scleral icterus Neck no lymphadenopathy, supple and no JVD Neck Narrative: Trachea midline, no thyroid enlargement Resp normal respiratory effort, no retractions, no use of accessory muscles and clear to auscultation bilaterally Resp Narrative: Patient on room air Auscultation: Negative for crackles, rales, rhonchi or wheezes Cardio regular rate, regular rhythm, S1 normal heart sound, S2 normal heart sound, no murmurs, no rub, no gallops, no clicks and no JVD GI soft to palpation GI Narrative: Bowel sounds are hypoactive, incision is clean dry and intact and right flank, [address] with serosanguineous output-minimal, tender in the right abdomen, abdomen appears distended Auscultation: hypoactive bowel sounds Palpation: tender and guarding Extremity normal to inspection and no clubbing, cyanosis or edema Peripheral Pulses: Yes pulses 2+ throughout Skin no rashes or lesions noted, no wounds, skin turgor normal, no jaundice, no petechiae and no mottling Neuro oriented x3, moves all extremities and no focal motor deficits Sensorium / Orientation: awake and alert Speech: speech normal Psych Psych Narrative: Appears uncomfortable and affect is mildly flat today but anticipated given his physical condition Assessment & Plan Assessment/Plan (1) Acute anemia: (2) Renal abscess: (3) MIKAYLA (acute kidney injury): (4) Leukocytosis: QUALIFIERS: Leukocytosis type: unspecified Qualified Code(s): D72.829 - Elevated white blood cell count, unspecified (5) Cystic kidney disease: PLAN: Large right renal cysts -Status post CT-guided drainage with nephrostomy tube placement on 12/29/[address] Reilly -12/30/2020 patient underwent laparoscopic converted to open renal exploration of cyst decortication and evacuation of abscess from the kidney with placement of surgical drains -Cultures are currently showing group A streptococcus -Patient is clinically worse Group A strep renal abscess -Appears to be pansensitive -Patient is clinically worse and white count is dramatically increased to 35.3 thousand today -Repeat pancultures -Change antibiotics to cefepime and vancomycin -ID following -General consult has been placed by primary Ileus -NG tube placed with about a liter out -Neurosurgery consulted -N.p.o. -Medication changed to IV -General surgery consult in place Leukocytosis -Continues to trend up -Repeat panculture -Antibiotics changed -ID is following Acute anemia -Hemoglobin has dropped steadily since admission -Likely some of this is due to fluid drained but concerning given continued drop -Reticulocyte count was performed yesterday and is markedly elevated leading me to believe that the patient has continued bleeding -Iron studies obtained and show a low iron and iron saturation as well as TIBC but an elevated ferritin -Elevated ferritin may be related to infection -CT of the abdomen pelvis showed no source of bleeding -1 unit of packed red blood cell given on 01/01/2021 -Hemoglobin appropriate corrected from 6.8-7.7 -Repeat hemoglobin this afternoon was 7.5 -Repeat CBC in a.m. MIKAYLA -Baseline serum creatinine is unknown -Current serum creatinine is down to 1.44 -May be transposed on CKD -Nephrology is following -Urine output is good DVT prophylaxis -SCDs -Ambulation CODE STATUS -Full code
--- NOTE | 2021-01-02 13:35 | RAD_ITS ---
STUDY: X-RAY - ABDOMEN/PELVIS REASON FOR EXAM: Male, 45 years old. Postoperative ileus TECHNIQUE: AP supine and upright views of the abdomen and pelvis. COMPARISON: Comparison is made with prior examination #9 2020 at 9:19 AM. FINDINGS: A nasogastric tube is seen with the tip in the body of the stomach. Drainage catheters are seen in the right upper quadrant. Mildly distended small bowel loops with air-fluid levels. There is evidence of an air-fluid level in the right hemicolon. Findings suggestive of an ileus pattern. Possible an air-fluid level in the right subdiaphragmatic region as seen on prior CT scan. The visualized liver, spleen and kidneys are grossly normal in size and morphology. Normal soft tissue structures. Normal visualized osseous structures. RAD/Abd Inc Decub and/or Erect IMPRESSION: Findings suggestive of an ileus pattern. Small air-fluid level seen in the right upper quadrant in the subdiaphragmatic region suggestive of a loculated air-fluid collection. This is seen on the CT scan. Electronically Signed: Tom Rivero MD at 14:09 EST , Service support ,
[2021-01-02 14:17] LABS: Pathologist Review Reviewed
[2021-01-02] MEDS: Midazolam 2 MG/2 ML Syringe IV (14:28)
[2021-01-02] MEDS: fentaNYL 100 MCG/2 ML Ampul IV (14:30)
[2021-01-02 14:50] LABS: Pathologist Review Reviewed
[2021-01-02 15:37] LABS: Pathologist Review Reviewed
--- NOTE | 2021-01-02 15:46 | NURSING ---
At 1433 Dr. Rivero informed BUSHRA Rankin that procedure is cancelled from a phone call with Dr. Reilly informing Dr. Villanueva that cancer cells were found on pathology. Dr. Reilly down to CT to inform pt and his that he is attempting to get an accepting doctor from [facility] to take out patient's kidney. Pt and given time in CT room to absorb the information. BUSHRA Rankin stood close by the room to ensure pt's vital signs stayed stable, but pt and his were given privacy immediately post-procedure.
--- NOTE | 2021-01-02 16:58 | PCM.PN.BLA ---
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
--- NOTE | 2021-01-02 17:34 | CHAPLAIN ---
Type of Pastoral Visit ___ Initial Visit _x__ Follow-up Visit ___ On-call Visit ___ General Patient Visit ___ Spiritual Assessment ___ Family Conference ___ Bereavement ___ Rapid Response ___ Code Blue ___ Other (describe below) Pastoral Care Referral From ___ Patient ___ Family _x__ Nurse ___ Physician ___ Solar Energy Specialist ___ Coating Line Worker ___ Other (describe below) Sacrament/Intervention _x__ Active listening ___ Anointing ___ Confucianism ___ Bereavement ___ Communion _x__ Greta exploration ___ ___ Life review _x__ Prayer ___ Reconciliation ___ Sacrament of Sick _x__ Supportive presence ___ Wedding ___ Other (describe below) Pastoral Comments visit recommended by RN due to new diagnosis for patient today; pt will likely be transferred to larger hospital for future surgery; patient and spouse welcomed the support, time to sit with them, and prayers; spouse is tearful during visit; greta affirmed; hope is present for family but they understand the serious nature of illness as well; future support also welcome
[2021-01-03] MEDS: 0.9% Saline Lock 10 ML Syringe IV ×2 (02:10→21:23)
[2021-01-03] MEDS: HYDROmorphone 1 MG/ML Syringe IV ×4 (02:10→21:22)
[2021-01-03 03:00] VITALS: BP 120/76; PULSE 89; RESP 18; TEMP 36.3; O2SAT 95
[2021-01-03] MEDS: 0.9% Normal Saline 1,000 ML 100 ML IV ×2 (05:03→22:18)
[2021-01-03 06:16] LABS: Hemoglobin 6.8 g/dL (13.0-16.5); Mean Corp Hgb Conc 32.4 g/dL (32-36); Mean Corpuscular Hgb 27.6 pg (27.0-32.0); Mean Corpuscular Volume 85.4 fL (80-94); Mean Platelet Vol. 11.1 fl (6.2-12.0); POSITIVE COUNT YES; POSITIVE DIFFERENTIAL YES; POSITIVE MORPHOLOGY YES; Platelet Count 505 K/mm3 (150-450); RBC Distribution Width CV 16.3 % (11.6-14.6); RBC Distribution Width SD 49.9 fl (35.1-43.9); Red Blood Count 2.46 M/mm3 (4.6-6.2)
[2021-01-03 06:19] LABS: Differential Indicated MANUAL DIFF
[2021-01-03 06:35] LABS: Eosinophil 1 % (0-5); Lymphocyte 5 % (19-41); Metamyelocyte 1 % (0-1); Monocyte 3 % (0-10); Myelocyte 2 % (0-0); Neutrophil-Band 0 % (0-5); Neutrophil-Segmented 88 % (47-70); Total Cells Counted 100 (MANUAL DIFF)
[2021-01-03 06:36] LABS: Platelet Estimate SLT INC (ADEQ)
[2021-01-03 06:37] LABS: Hypochromasia 1+; Polychromasia RARE
[2021-01-03 06:38] LABS: Absolute Neutrophil Count 22.9 X10^3/uL (2.0-7.7); Neutrophil # 22.86 X10^3/uL (2.7-7.7)
[2021-01-03 06:41] LABS: Anion Gap 7 (5-15); BUN 25 mg/dL (7-18); BUN/Creat Ratio 19.4 RATIO (10-20); Calcium,Total 7.2 mg/dL (8.5-10.1); Chloride 114 mmol/L (98-107); Creatinine, Serum 1.29 mg/dL (0.70-1.30); EST Glomerular Filtration Rate 64 mL/min (>60); Est Glom Filt Rate - Afr Amer 77 mL/min (>60); Estimated Creatinine Clearance 76.21 ml/min; Glucose 101 mg/dL (74-106); Potassium 4.1 mmol/L (3.5-5.1); Sodium Level 143 mmol/L (136-145)
[2021-01-03 07:15] VITALS: O2SAT 92
--- NOTE | 2021-01-03 08:02 | PCM.PN.BLA ---
Progress Note 45-year-old male who presented to the hospital with a cystic mass appeared to be an infection drain was put in came back positive with Streptococcus. The mass was caused a lot of swelling compression so because it is so big took him to surgery for drainage of what appeared to be an abscess the roof of the abscess was removed and sent off the pathology I evacuated a bunch of hemosiderin from the patient's abdomen the abscess had broken open into the abdomen at the time of this before the surgery I looked in laparoscopically and the abscess had already broken open. 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 He does have an ileus still and is slowly recovering from this. His hemoglobin is quite low certainly recommend we give him 2 units of blood. He still has NG decompression. His belly is actually abdomen is a lot softer and benign he did pass some gas overnight the night but just had a very little amount not a large amount I think we should continue with NG decompression for now the infectious disease has not broad-spectrum antibiotics I have placed a call up to the [facility] in [place] to see if they would accept the patient which they have but they said they are short on beds and not sure when he would be available to transfer for further care up there and today I called [facility] to see if they would have any beds available and again they said that they currently do not have any beds available and they are seeing if they can accept the patient. So this point will get a continue with his care hopefully his ileus will resolve movement remove his NG tube he is going to need it eventually will need a completion nephrectomy if possible if he can need to resume a regular diet and improve he can possibly go home probably will remove the surgical drains today so that those are not necessary anymore second remove the drains. We will see if he gets able to be transferred to a tertiary care center but if he does improve clinically and can go back in a regular diet then we may build to discharge him and have him continue as an outpatient. At this point I do not think that I should attempted to remove this infected abscess cancer kidney it would be very difficult surgery and very risky and he would be better off having the surgery at a tertiary care center I explained this to the patient he understood and will proceed with his care until we can either get him discharged or transferred to another facility.
--- NOTE | 2021-01-03 08:05 | PN.SURG_ITS ---
Subjective Subjective Patient evaluated this morning resting comfortably in the chair. He denies nausea, vomiting and abdominal pain. He is passing small amounts of gas. NG output has decreased. Patient was notified last night that the pathology of the kidney returned as renal cell carcinoma. Objective Data Objective Data Vital Signs: Vital Signs Temp Pulse Resp BP Pulse Ox 97.3 F L 89 18 120/76 92 01/03/21 03:00 01/03/21 03:00 01/03/21 03:00 01/03/21 03:00 01/03/21 07:15 Oxygen Flow Rate (L/min) [2] 2 Oxygen Flow Rate (L/min) 2 Oxygen Delivery Method [2] Nasal Cannula Oxygen Delivery Method Room Air Weight: 256 lb 0.012 oz Body Mass Index (BMI) 35.6 Intake & Output: Intake and Output for Last 24 Hours 01/01/21 01/02/21 01/03/21 23:59 23:59 23:59 Intake Total 1840.00 / 1840.00 4225 / 4225 260 / 260 Output Total 1335 / 1340 2495 / 2695 1660 / 1660 Balance 505.00 / 500.00 1730 / 1530 -1400 / -1400 Lab / Micro Data Result Diagrams: 01/03/21 05:55 01/03/21 05:55 Labs: Laboratory Results - last 24 hr 12/31/20 08:38: Diff Path Review Reviewed 01/01/21 11:50: Diff Path Review Reviewed 01/01/21 16:24: Crossmatch See Detail 01/02/21 05:08: Diff Path Review Reviewed 01/02/21 07:55: Procalcitonin 6.13 H 01/02/21 12:25: Hgb 7.5 L, Hct 22.3 L 01/03/21 05:55: WBC 26.0 H, RBC 2.46 L, Hgb 6.8 L, Hct 21.0 L, MCV 85.4, MCH 27.6, MCHC 32.4, RDW Std Deviation 49.9 H, RDW Coeff of Colin 16.3 H, Plt Count 505 H, MPV 11.1, Neut % (Auto) Not Reportable, Absolute Neuts (auto) 22.9 H, Absolute Lymphs (auto) 1.30, Total Counted 100, Neutrophils % (Manual) 88 H, Band Neutrophils % 0, Lymphocytes % (Manual) 5 L, Monocytes % (Manual) 3, E osinophils % (Manual) 1, Metamyelocytes % 1, Myelocytes % 2 H, Diff Path Review May foll, Platelet Estimate SLT INC, Polychromasia RARE, Hypochromasia 1+ 01/03/21 05:55: Sodium 143, Potassium 4.1, Chloride 114 H, Carbon Dioxide 22.0, Anion Gap 7, BUN 25 H, Creatinine 1.29, Estim Creat Clear Calc 76.21, Est GFR (MDRD) Af Amer 77, Est GFR (MDRD) Non-Af 64, BUN/Creatinine Ratio 19.4, Glucose 101, Calcium 7.2 L Micro: Microbiology 12/29/20 16:17 Cyst - Other Gram Stain - Final 12/29/20 16:17 Cyst - Other Wound Culture - Final Streptococcus group A 12/29/20 16:17 Cyst - Other Anaerobic Culture - Final No anaerobic bacteria isolated. 12/26/20 22:20 Blood Culture (Wb) - Left Forearm Blood Culture - Final No growth in 5 days. 12/26/20 22:16 Blood Culture (Wb) - Anticubital Left Blood Culture - Final No growth in 5 days. 12/27/20 01:10 Fluid - Other Gram Stain - Final 12/27/20 01:10 Fluid - Other Body Fluid Culture - Final Streptococcus group A 12/27/20 01:10 Fluid - Other Anaerobic Culture - Final No anaerobic bacteria isolated. 12/26/20 22:00 Urine, Midstream Urine Culture - Final Culture exhibits no growth. 12/26/20 11:50 Urine, Clean Catch Urine Culture - Final Culture exhibits no growth. 12/27/20 01:30 Nasal Secretion SARS-CoV-2 Antigen (Rapid) - Final Radiography Diagnostic Testing: Radiology Impression KUB X-Ray 01/02/21 09:00 IMPRESSION: The tip of the orogastric tube is in body of the stomach. A drainage catheter is seen in the right upper quadrant. Electronically Signed: Tom Rivero MD at 9:47 EST , Service support , Abdomen X-Ray 01/02/21 13:35 IMPRESSION: Findings suggestive of an ileus pattern. Small air-fluid level seen in the right upper quadrant in the subdiaphragmatic region suggestive of a loculated air-fluid collection. This is seen on the CT scan. Electronically Signed: Tom Rivero MD at 14:09 EST , Service support , Physical Exam Const alert and oriented x3 HEENT normocephalic GI non-tender Inspection: abdominal distention Auscultation: hypoactive bowel sounds Palpation: firm Assessment & Plan Assessment/Plan (1) Postoperative ileus: PLAN: I have discussed this patient with Dr. Agustin. Patient seems improved this morning. Continue NG tube. Will continue with conservative measures. Patient may be transferred per urology to [facility] or [facility] for further surgical intervention. Patient agreeable with current plan. Charges/Coding Visit Charges Inpatient E&M: 45525 Init Hosp L1
--- NOTE | 2021-01-03 08:08 | NURSING ---
Dr. Reilly at bedside removing surgical drain. 60 cc output prior to removal, dark red watery blood.
[2021-01-03 08:30] VITALS: BP 133/87; PULSE 96; RESP 16; TEMP 37.1; O2SAT 97
--- NOTE | 2021-01-03 12:18 | PCM.PN.ID ---
Physical Exam Narrative Feeling a little better, no fever Const alert General Appearance: cooperative Resp normal air movement and clear to auscultation bilaterally Cardio regular rate and regular rhythm GI soft to palpation and non-tender Skin no rashes or lesions noted ID ID: Route of nutrition/ use of supplements: [] Nutritional Intake: [] IV Site: [] Lopez Catheter: [] Assessment & Plan Assessment/Plan (1) Renal abscess: PLAN: GAS infection. Now s/p CT guided aspiration 12/27 and OR 12/[address] Reilly. Worsened pain, worsened wbc, so was broadened to vanc/cefepime; feeling better this AM, wbc improved. MIKAYLA improved. Gen surg following. Path with renal cell carcinoma, transfer planned. Will follow. Encouraged covid vaccine, he is not interested. (2) MIKAYLA (acute kidney injury):
[2021-01-03] MEDS: Docusate Sodium 100 MG Capsule PO ×2 (12:54→21:24)
[2021-01-03 13:04] LABS: Pathologist Review Reviewed
[2021-01-03 13:27] VITALS: BP 154/90; PULSE 99; RESP 16; TEMP 36.8; O2SAT 98
--- NOTE | 2021-01-03 14:55 | PCM.PN.HOSP ---
Subjective Subjective Patient does state he feels a bit better today. He did pass small amounts of flatus but no significant bowel movement. He states that he would prefer to leave the NG tube in longer than have to have it replaced again as it was quite uncomfortable. He is aware of his diagnosis and pending transfer to [facility] versus [facility]. Objective Data Objective Data Vital Signs: Vital Signs Temp Pulse Resp BP Pulse Ox 98.2 F 99 16 154/90 H 98 01/03/21 13:27 01/03/21 13:27 01/03/21 13:27 01/03/21 13:27 01/03/21 13:27 Oxygen Flow Rate (L/min) [2] 2 Oxygen Flow Rate (L/min) 2 Oxygen Delivery Method [2] Nasal Cannula Oxygen Delivery Method Room Air Weight: 116.12 kg Body Mass Index (BMI) 35.6 Intake & Output: Intake and Output for Last 24 Hours 01/01/21 01/02/21 01/03/21 23:59 23:59 23:59 Intake Total 1840.00 / 1840.00 4225 / 4225 2282 / 2282 Output Total 1335 / 1340 2495 / 2695 2470 / 2470 Balance 505.00 / 500.00 1730 / 1530 -188 / -188 Lab / Micro Data Result Diagrams: 01/03/21 05:55 01/03/21 05:55 Labs: Laboratory Results - last 24 hr 01/01/21 16:24: Crossmatch See Detail 01/01/21 16:24: Crossmatch See Detail 01/01/21 16:24: Crossmatch See Detail 01/02/21 05:08: Diff Path Review Reviewed 01/03/21 05:55: WBC 26.0 H, RBC 2.46 L, Hgb 6.8 L, Hct 21.0 L, MCV 85.4, MCH 27.6, MCHC 32.4, RDW Std Deviation 49.9 H, RDW Coeff of Colin 16.3 H, Plt Count 505 H, MPV 11.1, Neut % (Auto) Not Reportable, Absolute Neuts (auto) 22.9 H, Absolute Lymphs (auto) 1.30, Total Counted 100, Neutrophils % (Manual) 88 H, Band Neutrophils % 0, Lymphocytes % (Manual) 5 L, Monocytes % (Manual) 3, Eosinophils % (Manual) 1, Metamyelocytes % 1, Myelocytes % 2 H, Diff Path Review Reviewed, Platelet Estimate SLT INC, Polychromasia RARE, Hypochromasia 1+ 01/03/21 05:55: Sodium 143, Potassium 4.1, Chloride 114 H, Carbon Dioxide 22.0, Anion Gap 7, BUN 25 H, Creatinine 1.29, Estim Creat Clear Calc 76.21, Est GFR (MDRD) Af Amer 77, Est GFR (MDRD) Non-Af 64, BUN/Creatinine Ratio 19.4, Glucose 101, Calcium 7.2 L Micro: Microbiology 01/02/21 13:30 Urine, Clean Catch Urine Culture - Preliminary Culture exhibits no growth. 12/29/20 16:17 Cyst - Other Gram Stain - Final 12/29/20 16:17 Cyst - Other Wound Culture - Final Streptococcus group A 12/29/20 16:17 Cyst - Other Anaerobic Culture - Final No anaerobic bacteria isolated. 12/26/20 22:20 Blood Culture (Wb) - Left Forearm Blood Culture - Final No growth in 5 days. 12/26/20 22:16 Blood Culture (Wb) - Anticubital Left Blood Culture - Final No growth in 5 days. 12/27/20 01:10 Fluid - Other Gram Stain - Final 12/27/20 01:10 Fluid - Other Body Fluid Culture - Final Streptococcus group A 12/27/20 01:10 Fluid - Other Anaerobic Culture - Final No anaerobic bacteria isolated. 12/26/20 22:00 Urine, Midstream Urine Culture - Final Culture exhibits no growth. 12/26/20 11:50 Urine, Clean Catch Urine Culture - Final Culture exhibits no growth. 12/27/20 01:30 Nasal Secretion SARS-CoV-2 Antigen (Rapid) - Final Physical Exam Const alert, oriented x3, no apparent distress and average body habitus Constitutional Narrative: Obese white male sitting up in a chair, patient appears more comfortable than yesterday and nontoxic General Appearance: cooperative Exam Limitations: no limitations Nutritional Appearance: obese HEENT normocephalic, head/scalp atraumatic, hearing grossly normal bilaterally and moist oral mucous membranes HEENT Narrative: NG tube in place Head and Scalp: normocephalic Resp normal respiratory effort, no retractions, no use of accessory muscles and clear to auscultation bilaterally Auscultation: Negative for crackles, rales, rhonchi or wheezes Cardio regular rate, regular rhythm, S1 normal heart sound, S2 normal heart sound, no murmurs, no rub, no gallops, no clicks and no JVD GI soft to palpation and non-distended GI Narrative: Bowel sounds are hypoactive, incision is clean dry and intact and right flank, 2 drains have been removed, tender in the right abdomen, abdomen softer with much less distention Auscultation: hypoactive bowel sounds Palpation: tender and guarding Extremity normal to inspection and no clubbing, cyanosis or edema Extremity Narrative: No cyanosis or clubbing but trace bilateral upper extremity and lower extremity edema distally General Extremity: edema Peripheral Pulses: Yes pulses 2+ throughout Neuro oriented x3, moves all extremities and no focal motor deficits Sensorium / Orientation: awake and alert Speech: speech normal Assessment & Plan Assessment/Plan (1) Acute anemia: (2) Renal abscess: (3) MIKAYLA (acute kidney injury): (4) Leukocytosis: QUALIFIERS: Leukocytosis type: unspecified Qualified Code(s): D72.829 - Elevated white blood cell count, unspecified (5) Cystic kidney disease: PLAN: 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 Reilly -12/30/2020 patient underwent laparoscopic converted to open renal exploration of cyst decortication and evacuation of abscess from the kidney with placement of surgical drains -Cultures are currently showing group A streptococcus -Patient appears better today--> possible pending transfer to [facility] or [facility] upon bed availability versus discharge home with outpatient follow-up depending on clinical course -Management per primary service Group A strep renal abscess -Appears to be pansensitive -Patient is clinically worse and white count is dramatically increased to 35.3 thousand today -Repeat pancultures -Change antibiotics to cefepime and vancomycin -ID following -General consult has been placed by primary Ileus -NG tube in place -Patient remains n.p.o. -Continue IV fluids -Continue IV pain medication -General surgery consult in place Leukocytosis -Proved today with changes in antibiotics -Preliminary urine culture is negative -Blood cultures are pending Acute anemia -Hemoglobin has dropped steadily since admission -Likely some of this is due to fluid drained but concerning given continued drop -Reticulocyte count was performed yesterday and is markedly elevated leading me to believe that the patient has continued bleeding -Iron studies obtained and show a low iron and iron saturation as well as TIBC but an elevated ferritin -Elevated ferritin may be related to infection -CT of the abdomen pelvis showed no source of bleeding -1 unit of packed red blood cell given on 01/01/2021 -Hemoglobin this a.m. down to 6.8 and 1 unit packed red blood cells ordered again today -Repeat CBC in a.m. MIKAYLA -Baseline serum creatinine is unknown -Current serum creatinine is down to 1.29 -May be transposed on CKD -Nephrology is following -Urine output is good DVT prophylaxis -SCDs -Ambulation CODE STATUS -Full code Charges/Coding Visit Charges Inpatient E&M: 35965 Subs Hosp L2
--- NOTE | 2021-01-03 18:33 | NURSING ---
talked with [facility] transfer center, no bed available at this time.
[2021-01-03 21:57] LABS: Vancomycin, Trough Level 15.7 ug/mL (5.0-15.0)
[2021-01-03 21:58] VITALS: BP 142/92; PULSE 94; RESP 18; TEMP 36.3; O2SAT 97
--- NOTE | 2021-01-03 22:06 | PCM.RX.CS ---
Consult Pharmacy has been consulted to manage selected antiobiotic: Vancomycin Type of Consult: Follow-up Prior Doses of Antibiotics Received/Current Regimen: Medications Vancomycin HCl 1,500 mg/ (Sodium Chloride) 530 mls @ 250 mls/hr IV Q12H DANDY Last Admin: 01/03/21 21:22 Dose: 250 mls/hr Documented by: Labs: Sodium 143 mmol/L (136-145) 01/03/21 05:55 Potassium 4.1 mmol/L (3.5-5.1) 01/03/21 05:55 Chloride 114 mmol/L (98-107) H 01/03/21 05:55 Carbon Dioxide 22.0 mmol/L (21.0-32.0) 01/03/21 05:55 Anion Gap 7 (5-15) 01/03/21 05:55 BUN 25 mg/dL (7-18) H 01/03/21 05:55 Creatinine 1.29 mg/dL (0.70-1.30) 01/03/21 05:55 Est GFR (MDRD) Af Amer 77 mL/min (>60) 01/03/21 05:55 Est GFR (MDRD) Non-Af 64 mL/min (>60) 01/03/21 05:55 BUN/Creatinine Ratio 19.4 RATIO (10-20) 01/03/21 05:55 Glucose 101 mg/dL (74-106) 01/03/21 05:55 Vancomycin Trough 15.7 ug/mL (5.0-15.0) H 01/03/21 20:18 Microbiology: Microbiology 01/02/21 13:30 Urine, Clean Catch Urine Culture - Preliminary Culture exhibits no growth. 12/29/20 16:17 Cyst - Other Gram Stain - Final 12/29/20 16:17 Cyst - Other Wound Culture - Final Streptococcus group A 12/29/20 16:17 Cyst - Other Anaerobic Culture - Final No anaerobic bacteria isolated. 12/26/20 22:20 Blood Culture (Wb) - Left Forearm Blood Culture - Final No growth in 5 days. 12/26/20 22:16 Blood Culture (Wb) - Anticubital Left Blood Culture - Final No growth in 5 days. 12/27/20 01:10 Fluid - Other Gram Stain - Final 12/27/20 01:10 Fluid - Other Body Fluid Culture - Final Streptococcus group A 12/27/20 01:10 Fluid - Other Anaerobic Culture - Final No anaerobic bacteria isolated. 12/26/20 22:00 Urine, Midstream Urine Culture - Final Culture exhibits no growth. 12/26/20 11:50 Urine, Clean Catch Urine Culture - Final Culture exhibits no growth. 12/27/20 01:30 Nasal Secretion SARS-CoV-2 Antigen (Rapid) - Final Goal Trough: 15-20 mcg/mL Pharmacy Plan for Drug Dosing: Trough in goal range, recheck in 4 days per policy. Pharmacy Service will continue to monitor and adjust dosing as required. Follow-Up Labs: Trough Vancomycin - 01/07 @ 2029
[2021-01-04 03:10] VITALS: BP 141/93; PULSE 99; RESP 18; TEMP 36.4; O2SAT 99
[2021-01-04] MEDS: 0.9% Saline Lock 10 ML Syringe IV ×3 (05:24→20:05)
[2021-01-04] MEDS: HYDROmorphone 1 MG/ML Syringe IV ×3 (05:24→20:05)
[2021-01-04 06:46] LABS: Absolute Lymphocyte Count 1.17 X10^3/uL (0.83-4.51); Absolute Neutrophil Count 16.3 X10^3/uL (2.0-7.7); Basophil# 0.06 X10^3/uL; Basophil% 0.3 % (0-1); Eosinophil# 0.04 X10^3/uL; Eosinophils% 0.2 % (0-5); Hematocrit 25.5 % (40-54); Hemoglobin 8.4 g/dL (13.0-16.5); Lymphocyte # 1.17 X10^3/ul (0.83-4.51); Lymphocyte % 5.9 % (19-41); Mean Corp Hgb Conc 32.9 g/dL (32-36); Mean Platelet Vol. 10.3 fl (6.2-12.0); Monocyte# 1.54 X10^3/uL; Monocyte% 7.7 % (0-10); NRBC Flagged by Analyzer 0 % (0-5); Neutrophil # 16.26 X10^3/uL (2.7-7.7); Neutrophil % 81.5 % (47-70); POSITIVE DIFFERENTIAL YES; Platelet Count 626 K/mm3 (150-450); RBC Distribution Width CV 15.5 % (11.6-14.6)
[2021-01-04 06:52] LABS: Differential Indicated SCAN CRITERIA MET
[2021-01-04 07:19] LABS: Differential Comment SCANNED; Platelet Estimate MOD INC (ADEQ)
[2021-01-04 07:21] VITALS: O2SAT 96
[2021-01-04 07:24] LABS: Anion Gap 5 (5-15); BUN 23 mg/dL (7-18); BUN/Creat Ratio 21.9 RATIO (10-20); Calcium,Total 7.5 mg/dL (8.5-10.1); Chloride 118 mmol/L (98-107); Creatinine, Serum 1.05 mg/dL (0.70-1.30); EST Glomerular Filtration Rate 81 mL/min (>60); Est Glom Filt Rate - Afr Amer 98 mL/min (>60); Estimated Creatinine Clearance 93.63 ml/min; Glucose 96 mg/dL (74-106); Potassium 4.2 mmol/L (3.5-5.1); Sodium Level 143 mmol/L (136-145)
--- NOTE | 2021-01-04 07:34 | PN.URO_ITS ---
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 He is clinically getting better he passed gas and had a bowel movement last night we discussed removing the NG tube but he is wary that he may have that it put back down again so I am good to do NG tube clamping trials to see if he tolerates clamping trial will clamp the NG tube for 6 hours and put the suction off the nurses to record the residual. Abdomen nice and soft he has a few bowel sounds not fully back to normal but very nice and soft. Incisions clean and intact white blood count is down to 20,000 which is excellent. His creatinine is back down to normal 1.0 which is improving. He had 2 units of blood yesterday he looks much better he is able to ambulate the hallway. We are still waiting transfer to the [facility] but given his progression might be better to hold off on transfer for now and just discharged the patient for an outpatient follow-up so I would asked the nurses of the clinic calls to hold off on transfer and plan just to keep the patient here until he completely heals and we can always deal with the kidney at a separate setting and he will need a completion nephrectomy he is improving. Plan today is NG tube clamping trials Hold on transfer to the [facility] since he is improving He will need completion nephrectomy as an outpatient later on this can be done at a tertiary care center all ranges as an outpatient. Objective Data Objective Data Vital Signs: Vital Signs Temp Pulse Resp BP Pulse Ox 97.5 F L 99 18 141/93 H 96 01/04/21 03:10 01/04/21 03:10 01/04/21 03:10 01/04/21 03:10 01/04/21 07:21 Oxygen Flow Rate (L/min) [2] 2 Oxygen Flow Rate (L/min) 2 Oxygen Delivery Method [2] Nasal Cannula Oxygen Delivery Method Room Air Weight: 116.12 kg Body Mass Index (BMI) 35.6 Intake & Output: Intake and Output for Last 24 Hours 01/02/21 01/03/21 01/04/21 23:59 23:59 23:59 Intake Total 4225 / 4225 3152 / 3152 240 / 240 Output Total 2495 / 2695 3320 / 3320 800 / 800 Balance 1730 / 1530 -168 / -168 -560 / -560 Lab / Micro Data Result Diagrams: 01/04/21 06:40 01/04/21 06:40 Labs: Laboratory Results - last 24 hr 01/01/21 16:24: Crossmatch See Detail 01/01/21 16:24: Crossmatch See Detail 01/01/21 16:24: Crossmatch See Detail 01/03/21 05:55: Diff Path Review Reviewed 01/03/21 20:18: Vancomycin Trough 15.7 H 01/04/21 06:40: WBC 20.0 H, RBC 3.00 L, Hgb 8.4 L, Hct 25.5 L, MCV 85.0, MCH 28.0, MCHC 32.9, RDW Std Deviation 48.0 H, RDW Coeff of Colin 15.5 H, Plt Count 626 H, MPV 10.3, Immature Gran % (Auto) 4.400 H, Neut % (Auto) 81.5 H, Lymph % (Auto) 5.9 L, [place] % (Auto) 7.7, Eos % (Auto) 0.2, Baso % (Auto) 0.3, Absolute Neuts (auto) 16.3 H, Absolute Lymphs (auto) 1.17, Nucleated RBC % 0, Differential Comment SCANNED, Diff Path Review June foll, Platelet Estimate MOD INC 01/04/21 06:40: Sodium 143, Potassium 4.2, Chloride 118 H, Carbon Dioxide 20.0 L , Anion Gap 5, BUN 23 H, Creatinine 1.05, Estim Creat Clear Calc 93.63, Est GFR (MDRD) Af Amer 98, Est GFR (MDRD) Non-Af 81, BUN/Creatinine Ratio 21.9 H, Glucose 96, Calcium 7.5 L Micro: Microbiology 01/02/21 13:30 Urine, Clean Catch Urine Culture - Preliminary Culture exhibits no growth. 12/29/20 16:17 Cyst - Other Gram Stain - Final 12/29/20 16:17 Cyst - Other Wound Culture - Final Streptococcus group A 12/29/20 16:17 Cyst - Other Anaerobic Culture - Final No anaerobic bacteria isolated. 12/26/20 22:20 Blood Culture (Wb) - Left Forearm Blood Culture - Final No growth in 5 days. 12/26/20 22:16 Blood Culture (Wb) - Anticubital Left Blood Culture - Final No growth in 5 days. 12/27/20 01:10 Fluid - Other Gram Stain - Final 12/27/20 01:10 Fluid - Other Body Fluid Culture - Final Streptococcus group A 12/27/20 01:10 Fluid - Other Anaerobic Culture - Final No anaerobic bacteria isolated. 12/26/20 22:00 Urine, Midstream Urine Culture - Final Culture exhibits no growth. 12/26/20 11:50 Urine, Clean Catch Urine Culture - Final Culture exhibits no growth. 12/27/20 01:30 Nasal Secretion SARS-CoV-2 Antigen (Rapid) - Final Assessment & Plan Assessment/Plan (1) Acute anemia: (2) Renal abscess: (3) Acute respiratory failure with hypoxia: (4) MIKAYLA (acute kidney injury): (5) Leukocytosis: QUALIFIERS: Leukocytosis type: unspecified Qualified Code(s): D72.829 - Elevated white blood cell count, unspecified (6) Sepsis: (7) Cystic kidney disease:
[2021-01-04] MEDS: 0.9% Normal Saline 1,000 ML 100 ML IV ×2 (08:23→18:55)
[2021-01-04 09:00] VITALS: BP 180/98; PULSE 94; RESP 16; TEMP 36.6; O2SAT 99
--- NOTE | 2021-01-04 09:31 | PN.SURG_ITS ---
Subjective Subjective Patient states abdominal pain slightly better. White blood count down to 20 from 26, patient admits to having more flatus currently on clamp trial for NG Objective Data Objective Data Vital Signs: Vital Signs Temp Pulse Resp BP Pulse Ox 97.5 F L 99 18 141/93 H 96 01/04/21 03:10 01/04/21 03:10 01/04/21 03:10 01/04/21 03:10 01/04/21 07:21 Oxygen Flow Rate (L/min) [2] 2 Oxygen Flow Rate (L/min) 2 Oxygen Delivery Method [2] Nasal Cannula Oxygen Delivery Method Room Air Weight: 256 lb 0.012 oz Body Mass Index (BMI) 35.6 Intake & Output: Intake and Output for Last 24 Hours 01/02/21 01/03/21 01/04/21 23:59 23:59 23:59 Intake Total 4225 / 4225 3152 / 3152 1240 / 1240 Output Total 2495 / 2695 3320 / 3320 800 / 800 Balance 1730 / 1530 -168 / -168 440 / 440 Lab / Micro Data Result Diagrams: 01/04/21 06:40 01/04/21 06:40 Labs: Laboratory Results - last 24 hr 01/01/21 16:24: Crossmatch See Detail 01/01/21 16:24: Crossmatch See Detail 01/01/21 16:24: Crossmatch See Detail 01/03/21 05:55: Diff Path Review Reviewed 01/03/21 20:18: Vancomycin Trough 15.7 H 01/04/21 06:40: WBC 20.0 H, RBC 3.00 L, Hgb 8.4 L, Hct 25.5 L, MCV 85.0, MCH 28.0, MCHC 32.9, RDW Std Deviation 48.0 H, RDW Coeff of Colin 15.5 H, Plt Count 626 H, MPV 10.3, Immature Gran % (Auto) 4.400 H, Neut % (Auto) 81.5 H, Lymph % (Auto) 5.9 L, [place] % (Auto) 7.7, Eos % (Auto) 0.2, Baso % (Auto) 0.3, Absolute N euts (auto) 16.3 H, Absolute Lymphs (auto) 1.17, Nucleated RBC % 0, Differential Comment SCANNED, Diff Path Review May foll, Platelet Estimate MOD INC 01/04/21 06:40: Sodium 143, Potassium 4.2, Chloride 118 H, Carbon Dioxide 20.0 L , Anion Gap 5, BUN 23 H, Creatinine 1.05, Estim Creat Clear Calc 93.63, Est GFR (MDRD) Af Amer 98, Est GFR (MDRD) Non-Af 81, BUN/Creatinine Ratio 21.9 H, Glucose 96, Calcium 7.5 L Micro: Microbiology 01/02/21 07:00 Blood Culture (Wb) - Anticubital Left Blood Culture - Preliminary No growth in 48 hours. 01/02/21 07:55 Blood Culture (Wb) - Left Hand Blood Culture - Preliminary No growth in 48 hours. 01/02/21 13:30 Urine, Clean Catch Urine Culture - Preliminary Culture exhibits no growth. 12/29/20 16:17 Cyst - Other Gram Stain - Final 12/29/20 16:17 Cyst - Other Wound Culture - Final Streptococcus group A 12/29/20 16:17 Cyst - Other Anaerobic Culture - Final No anaerobic bacteria isolated. 12/26/20 22:20 Blood Culture (Wb) - Left Forearm Blood Culture - Final No growth in 5 days. 12/26/20 22:16 Blood Culture (Wb) - Anticubital Left Blood Culture - Final No growth in 5 days. 12/27/20 01:10 Fluid - Other Gram Stain - Final 12/27/20 01:10 Fluid - Other Body Fluid Culture - Final Streptococcus group A 12/27/20 01:10 Fluid - Other Anaerobic Culture - Final No anaerobic bacteria isolated. 12/26/20 22:00 Urine, Midstream Urine Culture - Final Culture exhibits no growth. 12/26/20 11:50 Urine, Clean Catch Urine Culture - Final Culture exhibits no growth. 12/27/20 01:30 Nasal Secretion SARS-CoV-2 Antigen (Rapid) - Final Physical Exam Const alert and oriented x3 HEENT normocephalic GI non-tender GI Narrative: Incision clean dry and intact with sharan and OpSite's. Inspection: abdominal distention Palpation: firm Assessment & Plan Assessment/Plan (1) Postoperative ileus: PLAN: Patient seems improved this morning- increased flatus- currently on clamp trial for NG. Per Dr. Reilly pt may be able to f/u for nephrectomy as an outpt if ileus improves instead of transfer. Hannah Agustin M.D. Pager: [phone] [facility] [address] [place] [address], Outpatient [place], [address] [place] [address] Office: [phone] Charges/Coding Visit Charges Inpatient E&M: 97721 Subs Hosp L2
[2021-01-04] MEDS: Docusate Sodium 100 MG Capsule PO ×2 (09:34→21:42)
[2021-01-04 10:00] VITALS: BP 156/100
--- NOTE | 2021-01-04 10:38 | PCM.PN.ID ---
Physical Exam Narrative Feeling better, having some ice chips, no fever Const alert General Appearance: cooperative Resp normal air movement and clear to auscultation bilaterally Cardio regular rate and regular rhythm GI GI Narrative: soft, mild soreness Skin no rashes or lesions noted ID ID: Route of nutrition/ use of supplements: [] Nutritional Intake: [] IV Site: [] Lopez Catheter: [] Assessment & Plan Assessment/Plan (1) Renal abscess: PLAN: GAS infection. Now s/p CT guided aspiration 12/27 and OR 12/[address] Reilly. Worsened pain, worsened wbc, so was broadened to vanc/cefepime; feeling better this AM, wbc improved, cxs neg. MIKAYLA improved. Gen surg following. Path with renal cell carcinoma. Will narrow to cefazolin. Will follow. Encouraged covid vaccine, he is not interested. (2) MIKAYLA (acute kidney injury):
[2021-01-04] MEDS: Cefazolin 2 GM in 0.9% Normal Saline 100 ML IV ×2 (14:03→21:41)
[2021-01-04 15:41] VITALS: BP 155/98; PULSE 95; RESP 16; TEMP 36.8; O2SAT 97
--- NOTE | 2021-01-04 15:54 | PN.HOSP_ITS ---
Subjective Subjective Patient reports that he had small bowel movement last evening and then overnight. Is passing some flatus, NG has been clamped this morning. Patient is still not feeling great but improved in the last 48 hours. Objective Data Objective Data Vital Signs: Vital Signs Temp Pulse Resp BP Pulse Ox 98.2 F 95 16 155/98 H 97 01/04/21 15:41 01/04/21 15:41 01/04/21 15:41 01/04/21 15:41 01/04/21 15:41 Oxygen Flow Rate (L/min) [2] 2 Oxygen Flow Rate (L/min) 2 Oxygen Delivery Method [2] Nasal Cannula Oxygen Delivery Method Room Air Weight: 116.12 kg Body Mass Index (BMI) 35.6 Intake & Output: Intake and Output for Last 24 Hours 01/02/21 01/03/21 01/04/21 23:59 23:59 23:59 Intake Total 4225 / 4225 3152 / 3152 1580 / 1580 Output Total 2495 / 2695 3320 / 3320 1350 / 1350 Balance 1730 / 1530 -168 / -168 230 / 230 Lab / Micro Data Result Diagrams: 01/04/21 06:40 01/04/21 06:40 Labs: Laboratory Results - last 24 hr 01/03/21 20:18: Vancomycin Trough 15.7 H 01/04/21 06:40: WBC 20.0 H, RBC 3.00 L, Hgb 8.4 L, Hct 25.5 L, MCV 85.0, MCH 28.0, MCHC 32.9, RDW Std Deviation 48.0 H, RDW Coeff of Colin 15.5 H, Plt Count 626 H, MPV 10.3, Immature Gran % (Auto) 4.400 H, Neut % (Auto) 81.5 H, Lymph % (Auto) 5.9 L, Patrick % (Auto) 7.7, Eos % (Auto) 0.2, Baso % (Auto) 0.3, Absolute Neuts (auto) 16.3 H, Absolute Lymphs (auto) 1.17, Nucleated RBC % 0, Differentia l Comment SCANNED, Diff Path Review June, Platelet Estimate MOD INC 01/04/21 06:40: Sodium 143, Potassium 4.2, Chloride 118 H, Carbon Dioxide 20.0 L , Anion Gap 5, BUN 23 H, Creatinine 1.05, Estim Creat Clear Calc 93.63, Est GFR (MDRD) Af Amer 98, Est GFR (MDRD) Non-Af 81, BUN/Creatinine Ratio 21.9 H, Glucose 96, Calcium 7.5 L Micro: Microbiology 01/02/21 13:30 Urine, Clean Catch Urine Culture - Final Culture exhibits no growth. 01/02/21 07:00 Blood Culture (Wb) - Anticubital Left Blood Culture - Preliminary No growth in 48 hours. 01/02/21 07:55 Blood Culture (Wb) - Left Hand Blood Culture - Preliminary No growth in 48 hours. 12/29/20 16:17 Cyst - Other Gram Stain - Final 12/29/20 16:17 Cyst - Other Wound Culture - Final Streptococcus group A 12/29/20 16:17 Cyst - Other Anaerobic Culture - Final No anaerobic bacteria isolated. 12/26/20 22:20 Blood Culture (Wb) - Left Forearm Blood Culture - Final No growth in 5 days. 12/26/20 22:16 Blood Culture (Wb) - Anticubital Left Blood Culture - Final No growth in 5 days. 12/27/20 01:10 Fluid - Other Gram Stain - Final 12/27/20 01:10 Fluid - Other Body Fluid Culture - Final Streptococcus group A 12/27/20 01:10 Fluid - Other Anaerobic Culture - Final No anaerobic bacteria isolated. 12/26/20 22:00 Urine, Midstream Urine Culture - Final Culture exhibits no growth. 12/26/20 11:50 Urine, Clean Catch Urine Culture - Final Culture exhibits no growth. 12/27/20 01:30 Nasal Secretion SARS-CoV-2 Antigen (Rapid) - Final Physical Exam Narrative Const alert, oriented x3, no apparent distress and average body habitus Constitutional Narrative: Obese white male sitting up in a chair, appears more comfortable, nontoxic General Appearance: cooperative Exam Limitations: no limitations Nutritional Appearance: obese HEENT normocephalic, head/scalp atraumatic, hearing grossly normal bilaterally and moist oral mucous membranes Head and Scalp: normocephalic Resp normal respiratory effort, no retractions, no use of accessory muscles and clear to auscultation bilaterally Auscultation: Negative for crackles, rales, rhonchi or wheezes Cardio regular rate, regular rhythm, S1 normal heart sound, S2 normal heart sound, no murmurs, no rub, no gallops, no clicks and no JVD GI soft to palpation and non-distended GI Narrative: Bowel sounds are hypoactive but improved, incision is clean dry and intact and right flank, the right abdomen Auscultation: hypoactive bowel sounds Palpation: tender and guarding Extremity normal to inspection and no clubbing, cyanosis or edema Extremity Narrative: No cyanosis or clubbing but trace bilateral upper extremity and lower extremity edema distally General Extremity: edema Neuro oriented x3, moves all extremities and no focal motor deficits Sensorium / Orientation: awake and alert Speech: speech normal Assessment & Plan Assessment/Plan (1) Acute anemia: (2) Renal abscess: (3) MIKAYLA (acute kidney injury): (4) Leukocytosis: QUALIFIERS: Leukocytosis type: unspecified Qualified Code(s): D72.829 - Elevated white blood cell count, unspecified (5) Cystic kidney disease: PLAN: 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 Reilly -12/30/2020 patient underwent laparoscopic converted to open renal exploration of cyst decortication and evacuation of abscess from the kidney with placement of surgical drains -Cultures are currently showing group A streptococcus -Patient appears better today--> possible pending transfer to [facility] or [facility] upon bed availability versus discharge home with outpatient follow-up depending on clinical course -Management per primary service Group A strep renal abscess -Appears to be pansensitive -Patient is clinically worse and white count is dramatically increased to 35.3 thousand today -Repeat pancultures are negative -Antibiotics have been narrowed to cefazolin -ID following Ileus -NG tube in place but has been clamped this morning by surgery -Seems to be improving as patient is passing flatus and did have 2 small bowel movements -Patient remains n.p.o. -Continue IV fluids -Continue IV pain medication -General surgery consult in place Leukocytosis -Down to 20,000 today -Repeat cultures are unimpressive at this time -Blood cultures are pending Thrombocytosis -Anticipate this to be reactive -Continue to monitor Acute anemia -Improved -1 unit of packed red blood cell given on 01/01/2021 and 1 unit on 01/03/2021 -Hemoglobin is stable today at 8.4 -Repeat CBC in a.m. MIKAYLA -Baseline serum creatinine is unknown -Current serum creatinine is down to 1.05 -May be transposed on CKD but serum creatinine continues to improve at this time -Urine output is good DVT prophylaxis -SCDs -Ambulation CODE STATUS -Full code Charges/Coding Visit Charges Inpatient E&M: 28937 Subs Hosp L2
[2021-01-04 20:11] VITALS: BP 152/94; PULSE 92; RESP 18; TEMP 36.6; O2SAT 96
[2021-01-05 02:45] VITALS: BP 177/97; PULSE 96; RESP 18; TEMP 36.9; O2SAT 99
[2021-01-05] MEDS: HYDROmorphone 1 MG/ML Syringe IV (02:58)
[2021-01-05 04:19] VITALS: BP 153/92; PULSE 84
--- NOTE | 2021-01-05 05:00 | NURSING ---
spoke with Lauri, pharmacy, will reorder trough. was drawn after trough dose started.
[2021-01-05] MEDS: Cefazolin 2 GM in 0.9% Normal Saline 100 ML IV ×3 (05:32→22:44)
[2021-01-05 07:06] LABS: Absolute Lymphocyte Count 1.33 X10^3/uL (0.83-4.51); Absolute Neutrophil Count 15.1 X10^3/uL (2.0-7.7); Basophil# 0.05 X10^3/uL; Basophil% 0.3 % (0-1); Eosinophil# 0.03 X10^3/uL; Eosinophils% 0.2 % (0-5); Hematocrit 26.2 % (40-54); Hemoglobin 8.4 g/dL (13.0-16.5); Lymphocyte # 1.33 X10^3/ul (0.83-4.51); Lymphocyte % 7.1 % (19-41); Mean Corp Hgb Conc 32.1 g/dL (32-36); Mean Corpuscular Hgb 27.5 pg (27.0-32.0); Mean Corpuscular Volume 85.9 fL (80-94); Mean Platelet Vol. 10.8 fl (6.2-12.0); Monocyte# 1.75 X10^3/uL; Monocyte% 9.3 % (0-10); NRBC Flagged by Analyzer 0 % (0-5); Neutrophil # 15.09 X10^3/uL (2.7-7.7); Neutrophil % 80.2 % (47-70); POSITIVE COUNT YES; POSITIVE DIFFERENTIAL YES; RBC Distribution Width CV 15.6 % (11.6-14.6); RBC Distribution Width SD 48.6 fl (35.1-43.9); Red Blood Count 3.05 M/mm3 (4.6-6.2); White Blood Count 18.8 K/mm3 (4.4-11.0)
[2021-01-05 07:22] LABS: Platelet Count 761 K/mm3 (150-450)
[2021-01-05 07:23] LABS: Differential Indicated SCAN CRITERIA MET
--- NOTE | 2021-01-05 07:38 | PN_ITS ---
Progress Note Appears to be improving NG output is lower, will get a check residual this morning and if it continues to be low will DC NG tube he has passed flatus have some small bowel movements abdomen soft and benign continues to progress white count is decreasing. At this point working to let the ileus resolved hopefully once he gets to regular diet he will be discharged home and will do outpatient management of his kidney mass he will need a completion nephrectomy which will be a very difficult procedure and we will hold off on this procedure and expl ained to the patient that would be better let him fully recover from his septic event and then have him come back for a nephrectomy later on.
--- NOTE | 2021-01-05 08:21 | PN.SURG_ITS ---
Subjective Subjective Patient reports having flatus with no abdominal distention or nausea or vomiting during clamping trial Objective Data Objective Data Vital Signs: Vital Signs Temp Pulse Resp BP Pulse Ox 98.4 F 84 18 153/92 H 99 01/05/21 02:45 01/05/21 04:19 01/05/21 02:45 01/05/21 04:19 01/05/21 02:45 Oxygen Flow Rate (L/min) [2] 2 Oxygen Flow Rate (L/min) 2 Oxygen Delivery Method [2] Nasal Cannula Oxygen Delivery Method Room Air Weight: 256 lb 0.012 oz Body Mass Index (BMI) 35.6 Intake & Output: Intake and Output for Last 24 Hours 01/03/21 01/04/21 01/05/21 23:59 23:59 23:59 Intake Total 3152 / 3152 2860 / 3360 1960 / 1960 Output Total 3320 / 3320 1500 / 1700 450 / 450 Balance -168 / -168 1360 / 1660 1510 / 1510 Lab / Micro Data Result Diagrams: 01/05/21 06:15 01/04/21 06:40 Labs: Laboratory Results - last 24 hr 01/05/21 06:15: WBC 18.8 H, RBC 3.05 L, Hgb 8.4 L, Hct 26.2 L, MCV 85.9, MCH 27.5, MCHC 32.1, RDW Std Deviation 48.6 H, RDW Coeff of Colin 15.6 H, Plt Count 761 H*, MPV 10.8, Immature Gran % (Auto) 2.900 H, Neut % (Auto) 80.2 H, Lymph % (Auto) 7.1 L, [place] % (Auto) 9.3, Eos % (Auto) 0.2, Baso % (Auto) 0.3, Absolute Neuts (auto) 15.1 H, Absolute Lymphs (auto) 1.33, Nucleated RBC % 0 Micro: Microbiology 01/02/21 13:30 Urine, Clean Catch Urine Culture - Final Culture exhibits no growth. 01/02/21 07:00 Blood Culture (Wb) - Anticubital Left Blood Culture - Preliminary No growth in 48 hours. 01/02/21 07:55 Blood Culture (Wb) - Left Hand Blood Culture - Preliminary No growth in 48 hours. 12/29/20 16:17 Cyst - Other Gram Stain - Final 12/29/20 16:17 Cyst - Other Wound Culture - Final Streptococcus group A 12/29/20 16:17 Cyst - Other Anaerobic Culture - Final No anaerobic bacteria isolated. 12/26/20 22:20 Blood Culture (Wb) - Left Forearm Blood Culture - Final No growth in 5 days. 12/26/20 22:16 Blood Culture (Wb) - Anticubital Left Blood Culture - Final No growth in 5 days. 12/27/20 01:10 Fluid - Other Gram Stain - Final 12/27/20 01:10 Fluid - Other Body Fluid Culture - Final Streptococcus group A 12/27/20 01:10 Fluid - Other Anaerobic Culture - Final No anaerobic bacteria isolated. 12/26/20 22:00 Urine, Midstream Urine Culture - Final Culture exhibits no growth. 12/26/20 11:50 Urine, Clean Catch Urine Culture - Final Culture exhibits no growth. 12/27/20 01:30 Nasal Secretion SARS-CoV-2 Antigen (Rapid) - Final Physical Exam Const no apparent distress Resp normal respiratory effort GI soft to palpation Assessment & Plan Assessment/Plan (1) Postoperative ileus: PLAN: Patient reports he is passing flatus and clamping trial did not produce much output. I recommend removing the tube and starting clear liquids. Vaughn Noble MD Pager: [facility] [address] [place] [address], [address] [place] [address] Office:
[2021-01-05 09:29] VITALS: BP 159/97; PULSE 97; RESP 18; TEMP 36.4; O2SAT 97
[2021-01-05] MEDS: Acetaminophen 500 MG Tablet PO ×2 (09:45→15:00)
[2021-01-05] MEDS: Docusate Sodium 100 MG Capsule PO (09:47)
[2021-01-05 09:48] LABS: Pathologist Review Reviewed
--- NOTE | 2021-01-05 10:22 | NURSING ---
spoke with dispatch center at [facility]- states they will page out information and call back with estimated time.
[2021-01-05] MEDS: 0.9% Normal Saline 1,000 ML 100 ML IV (11:49)
[2021-01-05] MEDS: Bisacodyl 10 MG Suppository RC (12:53)
[2021-01-05] MEDS: Enoxaparin 30 MG/0.3 ML Syringe SC (13:00)
--- NOTE | 2021-01-05 13:58 | PCM.PN.HOSP ---
Subjective Subjective Patient reports that he is feeling okay. His NG has been clamped and he feels that his abdomen may be a little more distended although he is not having any nausea or vomiting. He had a small bowel movement early this morning but nothing to speak of. He has limited flatus production. Objective Data Objective Data Vital Signs: Vital Signs Temp Pulse Resp BP Pulse Ox 97.6 F L 97 18 159/97 H 97 01/05/21 09:29 01/05/21 09:29 01/05/21 09:29 01/05/21 09:29 01/05/21 09:29 Oxygen Flow Rate (L/min) [2] 2 Oxygen Flow Rate (L/min) 2 Oxygen Delivery Method [2] Nasal Cannula Oxygen Delivery Method Room Air Weight: 116.12 kg Body Mass Index (BMI) 35.6 Intake & Output: Intake and Output for Last 24 Hours 01/03/21 01/04/21 01/05/21 23:59 23:59 23:59 Intake Total 3152 / 3152 2860 / 3360 0 / 2070 Output Total 3320 / 3320 1500 / 1700 705 / 705 Balance -168 / -168 1360 / 1660 1365 / 1365 Lab / Micro Data Result Diagrams: 01/05/21 06:15 01/04/21 06:40 Labs: Laboratory Results - last 24 hr 01/04/21 06:40: Diff Path Review Reviewed 01/05/21 06:15: WBC 18.8 H, RBC 3.05 L, Hgb 8.4 L, Hct 26.2 L, MCV 85.9, MCH 27.5, MCHC 32.1, RDW Std Deviation 48.6 H, RDW Coeff of Colin 15.6 H, Plt Count 761 H*, MPV 10.8, Immature Gran % (Auto) 2.900 H, Neut % (Auto) 80.2 H, Lymph % (Auto) 7.1 L, [place] % (Auto) 9.3, Eos % (Auto) 0.2, Baso % (Auto) 0.3, Absolute Neuts (auto) 15.1 H, Absolute Lymphs (auto) 1.33, Nucleated RBC % 0 Micro: Microbiology 01/02/21 13:30 Urine, Clean Catch Urine Culture - Final Culture exhibits no growth. 01/02/21 07:00 Blood Culture (Wb) - Anticubital Left Blood Culture - Preliminary No growth in 48 hours. 01/02/21 07:55 Blood Culture (Wb) - Left Hand Blood Culture - Preliminary No growth in 48 hours. 12/29/20 16:17 Cyst - Other Gram Stain - Final 12/29/20 16:17 Cyst - Other Wound Culture - Final Streptococcus group A 12/29/20 16:17 Cyst - Other Anaerobic Culture - Final No anaerobic bacteria isolated. 12/26/20 22:20 Blood Culture (Wb) - Left Forearm Blood Culture - Final No growth in 5 days. 12/26/20 22:16 Blood Culture (Wb) - Anticubital Left Blood Culture - Final No growth in 5 days. 12/27/20 01:10 Fluid - Other Gram Stain - Final 12/27/20 01:10 Fluid - Other Body Fluid Culture - Final Streptococcus group A 12/27/20 01:10 Fluid - Other Anaerobic Culture - Final No anaerobic bacteria isolated. 12/26/20 22:00 Urine, Midstream Urine Culture - Final Culture exhibits no growth. 12/26/20 11:50 Urine, Clean Catch Urine Culture - Final Culture exhibits no growth. 12/27/20 01:30 Nasal Secretion SARS-CoV-2 Antigen (Rapid) - Final Physical Exam Narrative Const alert, oriented x3, no apparent distress and average body habitus Constitutional Narrative: Obese white male sitting up in a chair, appears comfortable, nontoxic, at bedside General Appearance: cooperative Exam Limitations: no limitations Nutritional Appearance: obese HEENT normocephalic, head/scalp atraumatic, hearing grossly normal bilaterally and moist oral mucous membranes Head and Scalp: normocephalic Eyes Eyes Narrative: Conjunctiva mildly pale, no scleral icterus Resp normal respiratory effort, no retractions, no use of accessory muscles and clear to auscultation bilaterally Auscultation: Negative for crackles, rales, rhonchi or wheezes Cardio regular rate, regular rhythm, S1 normal heart sound, S2 normal heart sound, no murmurs, no rub, no gallops, no clicks and no JVD GI soft to palpation and non-distended GI Narrative: Bowel sounds are hypoactive, incision is clean dry and intact and right flank Auscultation: hypoactive bowel sounds Palpation: tender and guarding Extremity normal to inspection and no clubbing, cyanosis or edema Extremity Narrative: No cyanosis or clubbing but trace bilateral upper extremity and lower extremity edema distally General Extremity: edema Peripheral Pulses: Yes pulses 2+ throughout Neuro oriented x3, moves all extremities and no focal motor deficits Sensorium / Orientation: awake and alert Speech: speech normal Assessment & Plan Assessment/Plan (1) Acute anemia: (2) Renal abscess: (3) MIKAYLA (acute kidney injury): (4) Leukocytosis: QUALIFIERS: Leukocytosis type: unspecified Qualified Code(s): D72.829 - Elevated white blood cell count, unspecified (5) Cystic kidney disease: PLAN: 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 Reilly -12/30/2020 patient underwent laparoscopic converted to open renal exploration of cyst decortication and evacuation of abscess from the kidney with placement of surgical drains -Cultures are currently showing group A streptococcus -Patient appears stable--> possible pending transfer to [facility] or [facility] upon bed availability versus discharge home with outpatient follow-up depending on clinical course -Management per primary service Group A strep renal abscess -Appears to be pansensitive -Patient is clinically worse and white count is dramatically increased to 35.3 thousand today -Repeat pancultures are negative -Continue cefazolin per ID -ID following-appreciate input Ileus -NG tube remains in but continues to be clamped -Mild increase in distention but no nausea or vomiting -Less bowel activity today -Patient remains n.p.o. -Continue IV fluids with normal saline at 100 cc/h -Continue IV pain medication -General surgery consult in place Leukocytosis -Down to 18.8 today -Repeat cultures are unimpressive at this time -Blood cultures are pending Thrombocytosis -Anticipate this to be reactive -Continue to monitor Acute anemia -Appears to be stabilizing -1 unit of packed red blood cell given on 01/01/2021 and 1 unit on 01/03/2021 -Hemoglobin is stable at 8.4 again today -Repeat CBC in a.m. MIKAYLA -Baseline serum creatinine is unknown -Current serum creatinine is down to 1.05 -May be transposed on CKD but serum creatinine continues to improve at this time -Urine output is good -Repeat BMP in a.m. DVT prophylaxis -SCDs -Ambulation CODE STATUS -Full code Charges/Coding Visit Charges Inpatient E&M: 26535 Subs Hosp L2
[2021-01-05 15:05] VITALS: BP 158/103; PULSE 96; RESP 16; TEMP 36.8; O2SAT 97
--- NOTE | 2021-01-05 17:43 | NURSING ---
placed a call to [facility] [place] line, to check on bed status, no bed assignment yet.
[2021-01-05 21:00] VITALS: BP 167/95; PULSE 94; RESP 20; TEMP 36.8; O2SAT 97
[2021-01-05] MEDS: HYDROmorphone 0.5 MG/0.5 ML SYRINGE IV (22:34)
[2021-01-06] VITALS (9 sets, daily range): BP systolic 149–176; BP diastolic 93–105; PULSE 90–110; RESP 16–20; TEMP 36.6–39.4; O2SAT 95–100
[2021-01-06 00:20] LABS: Bedside Glucose 114 mg/dL (70-110)
[2021-01-06] MEDS: HYDROmorphone 0.5 MG/0.5 ML SYRINGE IV ×4 (04:30→22:51)
--- NOTE | 2021-01-06 04:36 | CT_ITS ---
STUDY: CT ABDOMEN AND PELVIS WITHOUT CONTRAST REASON FOR EXAM: Male, 45 years old. abdominal pain RADIATION DOSAGE (If Supplied By Facility): CTDIvol = ( 21.09 ) mGy, DLP = ( 1143.48 ) mGycm TECHNIQUE: Transaxial images were obtained from the dome of the diaphragm to the symphysis pubis without oral contrast, and without intravenous contrast. Sagittal and coronal images were reconstructed. Individualized dose optimization techniques were used for this CT. COMPARISON: 01/01/2021 FINDINGS: Right lower lobe airspace disease with moderate to large effusion. Left lung base is clear. The visualized portions of the heart are within normal limits. Normal liver. There is a solitary gallstone. Normal spleen. Normal pancreas. Normal bilateral adrenal glands. As compared to most recent prior CT abdomen and pelvis, surgical drain and a large right renal abscess collection containing internal air has been removed with marked increase in size of overall fluid collection. Now measuring roughly 11.3 x 9.5 x 17 cm. Again noted is enlarged mass which is exophytic from the superior pole the right kidney compatible with malignancy. Normal left kidney. Continued areas of free air in the abdomen and pelvis. Enteric tube in the stomach. Normal small intestine. There are multiple colonic diverticula consistent with diverticulosis. There is non-visualization of the appendix. Normal abdominal aorta. Normal inferior vena cava. Normal retroperitoneum. Normal urinary bladder. Continued edema the bilateral paracolic gutters as well as mild pelvic free fluid. Normal abdominal wall. Normal osseous structures. CT/Abdomen/Pelvis without Cont IMPRESSION: Again noted is exophytic large mass from the superior pole the right kidney however, previous drainage catheters have been removed, now with increased size of suspected abscess in the right kidney. Stable areas of free air in the abdomen and pelvis. Increased right lower lobe airspace disease and effusion. No evidence of bowel obstruction. Electronically Signed: Chas Huerta DO at 5:30 EST Tel , Service support ,
[2021-01-06] MEDS: Acetaminophen 650 MG Suppository RC (04:58)
[2021-01-06 05:02] LABS: Absolute Lymphocyte Count 1.05 X10^3/uL (0.83-4.51); Absolute Neutrophil Count 12.1 X10^3/uL (2.0-7.7); Basophil# 0.03 X10^3/uL; Basophil% 0.2 % (0-1); Eosinophil# 0.02 X10^3/uL; Eosinophils% 0.1 % (0-5); Hematocrit 25.9 % (40-54); Hemoglobin 8.3 g/dL (13.0-16.5); Lymphocyte # 1.05 X10^3/ul (0.83-4.51); Lymphocyte % 6.9 % (19-41); Mean Corpuscular Hgb 27.4 pg (27.0-32.0); Mean Corpuscular Volume 85.5 fL (80-94); Monocyte# 1.74 X10^3/uL; Monocyte% 11.4 % (0-10); NRBC Flagged by Analyzer 0 % (0-5); Neutrophil # 12.14 X10^3/uL (2.7-7.7); Neutrophil % 79.3 % (47-70); POSITIVE COUNT YES; POSITIVE DIFFERENTIAL YES; RBC Distribution Width CV 15.5 % (11.6-14.6); RBC Distribution Width SD 48.2 fl (35.1-43.9); Red Blood Count 3.03 M/mm3 (4.6-6.2); White Blood Count 15.3 K/mm3 (4.4-11.0)
[2021-01-06 05:15] LABS: International Normalized Ratio 1.4; Prothrombin Time (Protime)PT. 16.7 SECONDS (11.7-14.9)
[2021-01-06 05:18] LABS: Differential Indicated SCAN CRITERIA MET; Platelet Count 799 K/mm3 (150-450)
[2021-01-06 05:22] LABS: ALB/GLOB Ratio 0.2 RATIO (0.9-2.4); AST(SGOT) 23 U/L (15-37); Alanine Aminotransfer ALT/SGPT 22 U/L (16-61); Albumin, Serum 1.2 g/dL (3.2-5.0); Alkaline Phosphatase 79 U/L (45-117); Anion Gap 7 (5-15); BUN 17 mg/dL (7-18); BUN/Creat Ratio 16.8 RATIO (10-20); Calcium,Total 7.5 mg/dL (8.5-10.1); Chloride 112 mmol/L (98-107); Creatinine, Serum 1.01 mg/dL (0.70-1.30); Differential Comment SCANNED; EST Glomerular Filtration Rate 84 mL/min (>60); Est Glom Filt Rate - Afr Amer 102 mL/min (>60); Estimated Creatinine Clearance 94.36 ml/min; Glucose 134 mg/dL (74-106); Magnesium 1.9 mg/dL (1.6-2.6); Protein, Total 6.2 g/dL (6.4-8.2); Sodium Level 141 mmol/L (136-145); Triglycerides 127 mg/dL
[2021-01-06 05:23] LABS: Hypochromasia 1+; Platelet Estimate MKD INC (ADEQ)
[2021-01-06 05:25] LABS: Bilirubin, Direct 0.59 mg/dL (0.00-0.30); Phosphorus 2.5 mg/dL (2.5-4.9)
[2021-01-06] MEDS: Cefazolin 2 GM in 0.9% Normal Saline 100 ML IV ×3 (05:50→21:53)
--- NOTE | 2021-01-06 07:04 | PN.URO_ITS ---
Subjective Subjective 45-year-old male has an abscess that turned out to be kidney cancer in the right abdomen. His clinical status has worsened overnight he had a very high fever, his NG output is low however he has no bowel sounds and he has not passed any gas I still we are not remove the NG tube. I did call Latty again let him update the status that the patient is condition is sort of worsening and hoping for urgent transfer. They still said that he was on the list and I recommended a transfer by ambulance he is stable not for ambulance. His abdomen is soft but there is no bowel sounds and has not passed any gas did have a very high fever last night he is on broad-spectrum antibiotics his white blood count leases imp roving this morning which is a good sign his creatinine is stable hemoglobin is stable. At this point I was hoping to get him home for outpatient management for this kidney mass but he still has not improved I think he will not get better until his mass is removed so we are awaiting transfer will probably call Latty again tomorrow if he still not transferred. Objective Data Objective Data Vital Signs: Vital Signs Temp Pulse Resp BP Pulse Ox 102.9 F H 103 H 20 H 176/100 H 96 01/06/21 04:00 01/06/21 04:00 01/06/21 04:00 01/06/21 04:00 01/06/21 04:00 Oxygen Flow Rate (L/min) [2] 2 Oxygen Flow Rate (L/min) 2 Oxygen Delivery Method [2] Nasal Cannula Oxygen Delivery Method Room Air Weight: 117.8 kg Body Mass Index (BMI) 35.6 Intake & Output: Intake and Output for Last 24 Hours 01/04/21 01/05/21 01/06/21 23:59 23:59 23:59 Intake Total 2860 / 3360 2460 / 2460 110 / 110 Output Total 1500 / 1700 980 / 1380 850 / 850 Balance 1360 / 1660 1480 / 1080 -740 / -740 Lab / Micro Data Result Diagrams: 01/06/21 04:53 01/06/21 04:53 Labs: Laboratory Results - last 24 hr 01/04/21 06:40: Diff Path Review Reviewed 01/05/21 06:15: WBC 18.8 H, RBC 3.05 L, Hgb 8.4 L, Hct 26.2 L, MCV 85.9, MCH 27.5, MCHC 32.1, RDW Std Deviation 48.6 H, RDW Coeff of Colin 15.6 H, Plt Count 761 H*, MPV 10.8, Immature Gran % (Auto) 2.900 H, Neut % (Auto) 80.2 H, Lymph % (Auto) 7.1 L, [place] % (Auto) 9.3, Eos % (Auto) 0.2, Baso % (Auto) 0.3, Absolute Neuts (auto) 15.1 H, Absolute Lymphs (auto) 1.33, Nucleated RBC % 0, Diff Path Review June [facility] 01/06/21 00:06: POC Glucose 114 H 01/06/21 04:53: WBC 15.3 H, RBC 3.03 L, Hgb 8.3 L, Hct 25.9 L, MCV 85.5, MCH 27.4, MCHC 32.0, RDW Std Deviation 48.2 H, RDW Coeff of Colin 15.5 H, Plt Count 799 H*, MPV 10.0, Immature Gran % (Auto) 2.100 H, Neut % (Auto) 79.3 H, Lymph % (Auto) 6.9 L, [place] % (Auto) 11.4 H, Eos % (Auto) 0.1, Baso % (Auto) 0.2, Absolute Neuts (auto) 12.1 H, Absolute Lymphs (auto) 1.05, Nucleated RBC % 0, Differential Comment SCANNED, Diff Path Review June [facility], Platelet Estimate MKD INC, Hypochromasia 1+ 01/06/21 04:53: Sodium 141, Potassium 4.0, Chloride 112 H, Carbon Dioxide 22.0, Anion Gap 7, BUN 17, Creatinine 1.01, Estim Creat Clear Calc 94.36, Est GFR (MDRD) Af Amer 102, Est GFR (MDRD) Non-Af 84, BUN/Creatinine Ratio 16.8, Glucose 134 H, Calcium 7.5 L, Magnesium 1.9, Total Bilirubin 0.90, AST 23, ALT 22, Alkaline Phosphatase 79, Total Protein 6.2 L, Albumin 1.2 L, Globulin 5.0 H, Albumin/Globulin Ratio 0.2 L, Triglycerides 127 01/06/21 04:53: PT 16.7 H, INR 1.4 01/06/21 04:53: Phosphorus 2.5, Total Bilirubin 1.00, Direct Bilirubin 0.59 H, Indirect Bilirubin 0.40 Micro: Microbiology 01/06/21 05:10 Gastric Fluid/Contents Gastric Occult Blood - Final Occult Blood Positive 01/02/21 13:30 Urine, Clean Catch Urine Culture - Final Culture exhibits no growth. 01/02/21 07:00 Blood Culture (Wb) - Anticubital Left Blood Culture - Preliminary No growth in 48 hours. 01/02/21 07:55 Blood Culture (Wb) - Left Hand Blood Culture - Preliminary No growth in 48 hours. 12/29/20 16:17 Cyst - Other Gram Stain - Final 12/29/20 16:17 Cyst - Other Wound Culture - Final Streptococcus group A 12/29/20 16:17 Cyst - Other Anaerobic Culture - Final No anaerobic bacteria isolated. 12/26/20 22:20 Blood Culture (Wb) - Left Forearm Blood Culture - Final No growth in 5 days. 12/26/20 22:16 Blood Culture (Wb) - Anticubital Left Blood Culture - Final No growth in 5 days. 12/27/20 01:10 Fluid - Other Gram Stain - Final 12/27/20 01:10 Fluid - Other Body Fluid Culture - Final Streptococcus group A 12/27/20 01:10 Fluid - Other Anaerobic Culture - Final No anaerobic bacteria isolated. 12/26/20 22:00 Urine, Midstream Urine Culture - Final Culture exhibits no growth. 12/26/20 11:50 Urine, Clean Catch Urine Culture - Final Culture exhibits no growth. 12/27/20 01:30 Nasal Secretion SARS-CoV-2 Antigen (Rapid) - Final Radiography Diagnostic Testing: Radiology Impression Abdomen/Pelvis CT 01/06/21 04:36 IMPRESSION: Again noted is exophytic large mass from the superior pole the right kidney however, previous drainage catheters have been removed, now with increased size of suspected abscess in the right kidney. Stable areas of free air in the abdomen and pelvis. Increased right lower lobe airspace disease and effusion. No evidence of bowel obstruction. Electronically Signed: Chas Huerta DO at 5:30 EST Tel , Service support ,
[2021-01-06 07:11] LABS: Bedside Glucose 137 mg/dL (70-110)
[2021-01-06] MEDS: 0.9% Normal Saline 1,000 ML 100 ML IV (08:52)
[2021-01-06] MEDS: BACITRACIN 15 GM Tube 1 APPLIC TOPICAL (09:09)
[2021-01-06] MEDS: Enoxaparin 30 MG/0.3 ML Syringe SC (09:09)
[2021-01-06 12:26] LABS: Bedside Glucose 146 mg/dL (70-110)
--- NOTE | 2021-01-06 14:12 | NURSING ---
CALLED [facility] [place] LINE TO CHECK ON STATUS OF BED. STILL NO BED AVAILABLE AT THIS TIME.
--- NOTE | 2021-01-06 15:34 | PCM.PN.HOSP ---
Subjective Subjective Overnight patient had a fever of 102.9 but has been afebrile since. He is not really had any significant flatus or bowel movement. CT scan overnight showed worsening abscess. He states he feels poorly still. Indicates that his blood pressures are high and is concerned about this. Dr. Hall did call the [facility] again this morning to reiterate the urgency for transfer at this time. Objective Data Objective Data Vital Signs: Vital Signs Temp Pulse Resp BP Pulse Ox 97.8 F 96 16 150/99 H 97 01/06/21 13:00 01/06/21 13:00 01/06/21 13:00 01/06/21 13:00 01/06/21 13:00 Oxygen Flow Rate (L/min) [2] 2 Oxygen Flow Rate (L/min) 2 Oxygen Delivery Method [2] Nasal Cannula Oxygen Delivery Method Room Air Weight: 117.8 kg Body Mass Index (BMI) 35.6 Intake & Output: Intake and Output for Last 24 Hours 01/04/21 01/05/21 01/06/21 23:59 23:59 23:59 Intake Total 2860 / 3360 2460 / 2460 1405 / 1405 Output Total 1500 / 1700 980 / 1380 1450 / 1450 Balance 1360 / 1660 1480 / 1080 -45 / -45 Lab / Micro Data Result Diagrams: 01/06/21 04:53 01/06/21 04:53 Labs: Laboratory Results - last 24 hr 01/05/21 06:15: Diff Path Review June01/06/21 00:06: POC Glucose 114 H 01/06/21 04:53: WBC 15.3 H, RBC 3.03 L, Hgb 8.3 L, Hct 25.9 L, MCV 85.5, MCH 27.4, MCHC 32.0, RDW Std Deviation 48.2 H, RDW Coeff of Colin 15.5 H, Plt Count 799 H*, MPV 10.0, Immature Gran % (Auto) 2.100 H, Neut % (Auto) 79.3 H, Lymph % (Auto) 6.9 L, [place] % (Auto) 11.4 H, Eos % (Auto) 0.1, Baso % (Auto) 0.2, Absolute Neuts (auto) 12.1 H, Absolute Lymphs (auto) 1.05, Nucleated RBC % 0, Differential Comment SCANNED, Diff Path Review May foll, Platelet Estimate [employer], Hypochromasia 1+ 01/06/21 04:53: Sodium 141, Potassium 4.0, Chloride 112 H, Carbon Dioxide 22.0, Anion Gap 7, BUN 17, Creatinine 1.01, Estim Creat Clear Calc 94.36, Est GFR (MDRD) Af Amer 102, Est GFR (MDRD) Non-Af 84, BUN/Creatinine Ratio 16.8, Glucose 134 H, Calcium 7.5 L, Magnesium 1.9, Total Bilirubin 0.90, AST 23, ALT 22, Alkaline Phosphatase 79, Total Protein 6.2 L, Albumin 1.2 L, Globulin 5.0 H, Albumin/Globulin Ratio 0.2 L, Triglycerides 127 01/06/21 04:53: PT 16.7 H, INR 1.4 01/06/21 04:53: Phosphorus 2.5, Total Bilirubin 1.00, Direct Bilirubin 0.59 H, Indirect Bilirubin 0.40 01/06/21 06:45: POC Glucose 137 H 01/06/21 12:22: POC Glucose 146 H Micro: Microbiology 01/06/21 05:10 Gastric Fluid/Contents Gastric Occult Blood - Final Occult Blood Positive 01/02/21 13:30 Urine, Clean Catch Urine Culture - Final Culture exhibits no growth. 01/02/21 07:00 Blood Culture (Wb) - Anticubital Left Blood Culture - Preliminary No growth in 48 hours. 01/02/21 07:55 Blood Culture (Wb) - Left Hand Blood Culture - Preliminary No growth in 48 hours. 12/29/20 16:17 Cyst - Other Gram Stain - Final 12/29/20 16:17 Cyst - Other Wound Culture - Final Streptococcus group A 12/29/20 16:17 Cyst - Other Anaerobic Culture - Final No anaerobic bacteria isolated. 12/26/20 22:20 Blood Culture (Wb) - Left Forearm Blood Culture - Final No growth in 5 days. 12/26/20 22:16 Blood Culture (Wb) - Anticubital Left Blood Culture - Final No growth in 5 days. 12/27/20 01:10 Fluid - Other Gram Stain - Final 12/27/20 01:10 Fluid - Other Body Fluid Culture - Final Streptococcus group A 12/27/20 01:10 Fluid - Other Anaerobic Culture - Final No anaerobic bacteria isolated. 12/26/20 22:00 Urine, Midstream Urine Culture - Final Culture exhibits no growth. 12/26/20 11:50 Urine, Clean Catch Urine Culture - Final Culture exhibits no growth. 12/27/20 01:30 Nasal Secretion SARS-CoV-2 Antigen (Rapid) - Final Radiography Diagnostic Testing: Radiology Impression Abdomen/Pelvis CT 01/06/21 04:36 IMPRESSION: Again noted is exophytic large mass from the superior pole the right kidney however, previous drainage catheters have been removed, now with increased size of suspected abscess in the right kidney. Stable areas of free air in the abdomen and pelvis. Increased right lower lobe airspace disease and effusion. No evidence of bowel obstruction. Electronically Signed: Chas Huerta DO at 5:30 EST Tel , Service support , Physical Exam Narrative Const alert, oriented x3, no apparent distress and average body habitus Constitutional Narrative: Obese white male lying in bed, appears miserable, nontoxic but appears uncomfortable General Appearance: cooperative Exam Limitations: no limitations Nutritional Appearance: obese HEENT normocephalic, head/scalp atraumatic, hearing grossly normal bilaterally and moist oral mucous membranes Head and Scalp: normocephalic Resp normal respiratory effort, no retractions, no use of accessory muscles and clear to auscultation bilaterally Resp Narrative: Patient on room air Auscultation: Negative for crackles, rales, rhonchi or wheezes Cardio regular rate, regular rhythm, S1 normal heart sound, S2 normal heart sound, no murmurs, no rub, no gallops, no clicks and no JVD GI soft to palpation and non-distended GI Narrative: Bowel sounds are hypoactive but present today with me clamping NG, incision is clean dry and intact and right flank Auscultation: hypoactive bowel sounds Palpation: tender and guarding Extremity normal to inspection and no clubbing, cyanosis or edema Extremity Narrative: No cyanosis or clubbing but trace bilateral upper extremity and lower extremity edema distally General Extremity: edema Skin no rashes or lesions noted, no wounds, skin turgor normal, no jaundice, no petechiae and no mottling Neuro oriented x3, moves all extremities and no focal motor deficits Sensorium / Orientation: awake and alert Speech: speech normal Assessment & Plan Assessment/Plan (1) Acute anemia: (2) Renal abscess: (3) MIKAYLA (acute kidney injury): (4) Leukocytosis: QUALIFIERS: Leukocytosis type: unspecified Qualified Code(s): D72.829 - Elevated white blood cell count, unspecified (5) Cystic kidney disease: PLAN: 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 Reilly -12/30/2020 patient underwent laparoscopic converted to open renal exploration of cyst decortication and evacuation of abscess from the kidney with placement of surgical drains -Cultures are currently showing group A streptococcus -Fever with repeat stat CAT scan last evening showing worsening abscess -Primary service has recalled [facility] to impress upon the urgency for transfer -Management per primary service Group A strep renal abscess -Appears to be pansensitive -White count continues to improve and is down to 15,000 -Patient was febrile overnight -Repeat pancultures are negative -Continue cefazolin per ID -ID following-appreciate input Ileus -NG tube remains in but continues to be clamped -Mild increase in distention but no nausea or vomiting -Patient with improved bowel sounds but no bowel activity at this time -Patient remains n.p.o. -Continue IV fluids with normal saline at 150 cc/h -Continue IV pain medication -General surgery consult in place Leukocytosis -Down to 15.5 today -Repeat cultures remain negative Thrombocytosis -Anticipate this to be reactive -Continue to monitor Acute anemia -Appears to be stabilizing -1 unit of packed red blood cell given on 01/01/2021 and 1 unit on 01/03/2021 -Hemoglobin remained stable -Repeat CBC in a.m. Elevated blood pressure -All pressures have been elevated unclear if this is related to pain or underlying hypertension -We will schedule hydralazine 10 mg every 6 hours -Continue to monitor MIKAYLA -Baseline serum creatinine is unknown -Current serum creatinine is down to 1.01 -May be transposed on CKD but serum creatinine continues to improve at this time -Urine output is good -Repeat BMP in a.m. DVT prophylaxis -SCDs -Ambulation CODE STATUS -Full code Charges/Coding Visit Charges Inpatient E&M: 06231 Subs Hosp L2
[2021-01-06] MEDS: hydrALAZINE 20 MG/ML Vial 10 MG IV ×2 (16:12→21:54)
[2021-01-06 18:11] LABS: Bedside Glucose 119 mg/dL (70-110)
[2021-01-06] MEDS: 0.9% Normal Saline 1,000 ML 50 ML IV (20:53)
[2021-01-07] VITALS (8 sets, daily range): BP systolic 134–148; BP diastolic 81–104; PULSE 82–120; RESP 15–18; TEMP 36.2–38.2; O2SAT 96–98
[2021-01-07 00:46] LABS: Bedside Glucose 123 mg/dL (70-110)
[2021-01-07] MEDS: hydrALAZINE 20 MG/ML Vial 10 MG IV ×3 (04:53→16:19)
[2021-01-07] MEDS: Cefazolin 2 GM in 0.9% Normal Saline 100 ML IV ×3 (05:03→19:55)
[2021-01-07] MEDS: HYDROmorphone 0.5 MG/0.5 ML SYRINGE IV ×4 (05:07→20:04)
[2021-01-07 05:11] LABS: Bedside Glucose 129 mg/dL (70-110)
[2021-01-07 05:34] LABS: Absolute Lymphocyte Count 1.35 X10^3/uL (0.83-4.51); Absolute Neutrophil Count 10.3 X10^3/uL (2.0-7.7); Basophil# 0.06 X10^3/uL; Basophil% 0.4 % (0-1); Eosinophil# 0.01 X10^3/uL; Eosinophils% 0.1 % (0-5); Hematocrit 24.8 % (40-54); Hemoglobin 7.9 g/dL (13.0-16.5); Lymphocyte # 1.35 X10^3/ul (0.83-4.51); Lymphocyte % 9.8 % (19-41); Mean Corp Hgb Conc 31.9 g/dL (32-36); Mean Corpuscular Hgb 27.6 pg (27.0-32.0); Mean Corpuscular Volume 86.7 fL (80-94); Mean Platelet Vol. 10.1 fl (6.2-12.0); Monocyte% 13.8 % (0-10); NRBC Flagged by Analyzer 0 % (0-5); Neutrophil # 10.27 X10^3/uL (2.7-7.7); Neutrophil % 74.4 % (47-70); POSITIVE COUNT YES; POSITIVE DIFFERENTIAL YES; RBC Distribution Width CV 15.5 % (11.6-14.6); RBC Distribution Width SD 49.1 fl (35.1-43.9); Red Blood Count 2.86 M/mm3 (4.6-6.2); White Blood Count 13.8 K/mm3 (4.4-11.0)
[2021-01-07 05:42] LABS: Differential Indicated SCAN CRITERIA MET; Platelet Count 807 K/mm3 (150-450)
[2021-01-07 06:27] LABS: Differential Comment SCANNED
[2021-01-07 06:28] LABS: Platelet Estimate MKD INC (ADEQ)
[2021-01-07 07:08] LABS: ALB/GLOB Ratio 0.2 RATIO (0.9-2.4); AST(SGOT) 25 U/L (15-37); Alanine Aminotransfer ALT/SGPT 20 U/L (16-61); Albumin, Serum 1.2 g/dL (3.2-5.0); Alkaline Phosphatase 79 U/L (45-117); Anion Gap 5 (5-15); BUN 16 mg/dL (7-18); BUN/Creat Ratio 15.2 RATIO (10-20); Calcium,Total 7.5 mg/dL (8.5-10.1); Chloride 115 mmol/L (98-107); Creatinine, Serum 1.05 mg/dL (0.70-1.30); EST Glomerular Filtration Rate 81 mL/min (>60); Est Glom Filt Rate - Afr Amer 98 mL/min (>60); Estimated Creatinine Clearance 90.77 ml/min; Globulin 5.3 g/dL (2.2-4.2); Glucose 137 mg/dL (74-106); Phosphorus 2.3 mg/dL (2.5-4.9); Potassium 3.9 mmol/L (3.5-5.1); Protein, Total 6.5 g/dL (6.4-8.2); Sodium Level 142 mmol/L (136-145)
[2021-01-07] MEDS: Enoxaparin 30 MG/0.3 ML Syringe SC (10:33)
--- NOTE | 2021-01-07 10:34 | PCM.PN.GU ---
Subjective Subjective 45-year-old male who has a cystic mass in his right kidney which was infected with Streptococcus a his white blood count lesion is coming down to normal hemoglobin is stable he still has an ileus I try to get him transferred to [facility] but he has been on a waiting list now since last Friday so about 5 days on a waiting list to get transferred since he is not in the ICU he is not high-priority but he is not clinically improving and not able to get him home he still here in the hospital he is on TPN now kidney function is back to normal white blood count is resolving my plan at this point is to have to do intervention myself will probably proceed with a right radical nephrectomy through a flank incision we will ask general surgery if he will be available to help me with the surgery this will be a very difficult case given the inflammation of the tumor and its can to be very stuck could be dangerous this was explained to the patient will have to order blood products what ordered platelets to be available for the patient at this point plan to proceed with Friday again to call the operating room to get on the schedule will have to move my office accordingly. He is agreeable with this plan unless for some reason he does become available to get transferred then will get transferred to a tertiary care center but intervention has to be performed soon. Objective Data Objective Data Vital Signs: Vital Signs Temp Pulse Resp BP Pulse Ox 987.8 F H 111 H 18 142/94 H 97 01/07/21 04:10 01/07/21 04:53 01/07/21 04:10 01/07/21 04:10 01/07/21 04:10 Oxygen Flow Rate (L/min) [2] 2 Oxygen Flow Rate (L/min) 2 Oxygen Delivery Method [2] Nasal Cannula Oxygen Delivery Method Room Air Weight: 117.8 kg Body Mass Index (BMI) 35.6 Intake & Output: Intake and Output for Last 24 Hours 01/05/21 01/06/21 01/07/21 23:59 23:59 23:59 Intake Total 2460 / 2460 2550 / 2550 1585.6 / 1585.6 Output Total 980 / 1380 2650 / 3150 1000 / 1000 Balance 1480 / 1080 -100 / -600 585.6 / 585.6 Lab / Micro Data Result Diagrams: 01/07/21 05:20 01/07/21 06:40 Labs: Laboratory Results - last 24 hr 01/06/21 12:22: POC Glucose 146 H 01/06/21 18:04: POC Glucose 119 H 01/07/21 00:41: POC Glucose 123 H 01/07/21 05:02: POC Glucose 129 H 01/07/21 05:20: WBC 13.8 H, RBC 2.86 L, Hgb 7.9 L, Hct 24.8 L, MCV 86.7, MCH 27.6, MCHC 31.9 L, RDW Std Deviation 49.1 H, RDW Coeff of Colin 15.5 H, Plt Count 807 H*, MPV 10.1, Immature Gran % (Auto) 1.500 H, Neut % (Auto) 74.4 H, Lymph % (Auto) 9.8 L, [place] % (Auto) 13.8 H, Eos % (Auto) 0.1, Baso % (Auto) 0.4, Absolute Neuts (auto) 10.3 H, Absolute Lymphs (auto) 1.35, Nucleated RBC % 0, Differential Comment SCANNED, Diff Path Review Alfreda iglesias, Platelet Estimate [employer] 01/07/21 05:20: Sodium Cancelled, Potassium Cancelled, Chloride Cancelled, Carbon Dioxide Cancelled, Anion Gap Cancelled, BUN Cancelled, Creatinine Cancelled, Estim Creat Clear Calc Cancelled, Est GFR (MDRD) Af Amer Cancelled, Est GFR (MDRD) Non-Af Cancelled, BUN/Creatinine Ratio Cancelled, Glucose Cancelled, Calcium Cancelled, Phosphorus Cancelled, Magnesium Cancelled, Total Bilirubin Cancelled, AST Cancelled, ALT Cancelled, Alkaline Phosphatase Cancelled, Total Protein Cancelled, Albumin Cancelled, Globulin Cancelled, Albumin/Globulin Ratio Cancelled 01/07/21 06:40: Sodium 142, Potassium 3.9, Chloride 115 H, Carbon Dioxide 22.0, Anion Gap 5, BUN 16, Creatinine 1.05, Estim Creat Clear Calc 90.77, Est GFR (MDRD) Af Amer 98, Est GFR (MDRD) Non-Af 81, BUN/Creatinine Ratio 15.2, Glucose 137 H, Calcium 7.5 L, Phosphorus 2.3 L, Magnesium 2.0, Total Bilirubin 1.00, AST 25, ALT 20, Alkaline Phosphatase 79, Total Protein 6.5, Albumin 1.2 L, Globulin 5.3 H, Albumin/Globulin Ratio 0.2 L Micro: Microbiology 01/06/21 05:10 Gastric Fluid/Contents Gastric Occult Blood - Final Occult Blood Positive 01/02/21 13:30 Urine, Clean Catch Urine Culture - Final Culture exhibits no growth. 01/02/21 07:00 Blood Culture (Wb) - Anticubital Left Blood Culture - Preliminary No growth in 48 hours. 01/02/21 07:55 Blood Culture (Wb) - Left Hand Blood Culture - Preliminary No growth in 48 hours. 12/29/20 16:17 Cyst - Other Gram Stain - Final 12/29/20 16:17 Cyst - Other Wound Culture - Final Streptococcus group A 12/29/20 16:17 Cyst - Other Anaerobic Culture - Final No anaerobic bacteria isolated. 12/26/20 22:20 Blood Culture (Wb) - Left Forearm Blood Culture - Final No growth in 5 days. 12/26/20 22:16 Blood Culture (Wb) - Anticubital Left Blood Culture - Final No growth in 5 days. 12/27/20 01:10 Fluid - Other Gram Stain - Final 12/27/20 01:10 Fluid - Other Body Fluid Culture - Final Streptococcus group A 12/27/20 01:10 Fluid - Other Anaerobic Culture - Final No anaerobic bacteria isolated. 12/26/20 22:00 Urine, Midstream Urine Culture - Final Culture exhibits no growth. 12/26/20 11:50 Urine, Clean Catch Urine Culture - Final Culture exhibits no growth. 12/27/20 01:30 Nasal Secretion SARS-CoV-2 Antigen (Rapid) - Final
[2021-01-07] MEDS: BACITRACIN 15 GM Tube 1 APPLIC TOPICAL (10:48)
[2021-01-07] MEDS: Bisacodyl 10 MG Suppository RC (11:35)
[2021-01-07 12:10] LABS: Bedside Glucose 110 mg/dL (70-110)
--- NOTE | 2021-01-07 13:16 | PN.HOSP_ITS ---
Subjective Subjective Blood pressure has been better controlled with the addition of scheduled hydralazine but remains still remains somewhat elevated. No true fevers overnight. 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 Patient can have no flatus and no significant bowel movement. NG is hooked to suction Objective Data Objective Data Vital Signs: Vital Signs Temp Pulse Resp BP Pulse Ox 97.1 F L 82 15 146/104 H 98 01/07/21 08:00 01/07/21 10:34 01/07/21 08:00 01/07/21 08:00 01/07/21 08:00 Oxygen Flow Rate (L/min) [2] 2 Oxygen Flow Rate (L/min) 2 Oxygen Delivery Method [2] Nasal Cannula Oxygen Delivery Method Room Air Weight: 117.8 kg Body Mass Index (BMI) 35.6 Intake & Output: Intake and Output for Last 24 Hours 01/05/21 01/06/21 01/07/21 23:59 23:59 23:59 Intake Total 2460 / 2460 2550 / 2550 2650.1 / 2650.1 Output Total 980 / 1380 2650 / 3150 1250 / 1250 Balance 1480 / 1080 -100 / -600 1400.1 / 1400.1 Lab / Micro Data Result Diagrams: 01/07/21 05:20 01/07/21 06:40 Labs: Laboratory Results - last 24 hr 01/06/21 18:04: POC Glucose 119 H 01/07/21 00:41: POC Glucose 123 H 01/07/21 05:02: POC Glucose 129 H 01/07/21 05:20: WBC 13.8 H, RBC 2.86 L, Hgb 7.9 L, Hct 24.8 L, MCV 86.7, MCH 27.6, MCHC 31.9 L, RDW Std Deviation 49.1 H, RDW Coeff of Colin 15.5 H, Plt Count 807 H*, MPV 10.1, Immature Gran % (Auto) 1.500 H, Neut % (Auto) 74.4 H, Lymph % (Auto) 9.8 L, [place] % (Auto) 13.8 H, Eos % (Auto) 0.1, Baso % (Auto) 0.4, Absolute Neuts (auto) 10.3 H, Absolute Lymphs (auto) 1.35, Nucleated RBC % 0, Differential Comment SCANNED, Diff Path Review May foll, Platelet Estimate [employer] 01/07/21 05:20: Sodium Cancelled, Potassium Cancelled, Chloride Cancelled, Carbon Dioxide Cancelled, Anion Gap Cancelled, BUN Cancelled, Creatinine Cancelled, Estim Creat Clear Calc Cancelled, Est GFR (MDRD) Af Amer Cancelled, Est GFR (MDRD) Non-Af Cancelled, BUN/Creatinine Ratio Cancelled, Glucose Cancelled, Calcium Cancelled, Phosphorus Cancelled, Magnesium Cancelled, Total Bilirubin Cancelled, AST Cancelled, ALT Cancelled, Alkaline Phosphatase Cancelled, Total Protein Cancelled, Albumin Cancelled, Globulin Cancelled, Albumin/Globulin Ratio Cancelled 01/07/21 06:40: Sodium 142, Potassium 3.9, Chloride 115 H, Carbon Dioxide 22.0, Anion Gap 5, BUN 16, Creatinine 1.05, Estim Creat Clear Calc 90.77, Est GFR (MDRD) Af Amer 98, Est GFR (MDRD) Non-Af 81, BUN/Creatinine Ratio 15.2, Glucose 137 H, Calcium 7.5 L, Phosphorus 2.3 L, Magnesium 2.0, Total Bilirubin 1.00, AST 25, ALT 20, Alkaline Phosphatase 79, Total Protein 6.5, Albumin 1.2 L, Globulin 5.3 H, Albumin/Globulin Ratio 0.2 L 01/07/21 11:32: POC Glucose 110 Micro: Microbiology 01/02/21 07:00 Blood Culture (Wb) - Anticubital Left Blood Culture - Final No growth in 5 days. 01/02/21 07:55 Blood Culture (Wb) - Left Hand Blood Culture - Final No growth in 5 days. 01/06/21 05:10 Gastric Fluid/Contents Gastric Occult Blood - Final Occult Blood Positive 01/02/21 13:30 Urine, Clean Catch Urine Culture - Final Culture exhibits no growth. 12/29/20 16:17 Cyst - Other Gram Stain - Final 12/29/20 16:17 Cyst - Other Wound Culture - Final Streptococcus group A 12/29/20 16:17 Cyst - Other Anaerobic Culture - Final No anaerobic bacteria isolated. 12/26/20 22:20 Blood Culture (Wb) - Left Forearm Blood Culture - Final No growth in 5 days. 12/26/20 22:16 Blood Culture (Wb) - Anticubital Left Blood Culture - Final No growth in 5 days. 12/27/20 01:10 Fluid - Other Gram Stain - Final 12/27/20 01:10 Fluid - Other Body Fluid Culture - Final Streptococcus group A 12/27/20 01:10 Fluid - Other Anaerobic Culture - Final No anaerobic bacteria isolated. 12/26/20 22:00 Urine, Midstream Urine Culture - Final Culture exhibits no growth. 12/26/20 11:50 Urine, Clean Catch Urine Culture - Final Culture exhibits no growth. 12/27/20 01:30 Nasal Secretion SARS-CoV-2 Antigen (Rapid) - Final Physical Exam Narrative Const alert, oriented x3, no apparent distress and average body habitus Constitutional Narrative: Obese white male sitting up in the chair reclined at the bedside, appears miserable, nontoxic but appears uncomfortable General Appearance: cooperative Exam Limitations: no limitations Nutritional Appearance: obese HEENT normocephalic, head/scalp atraumatic, hearing grossly normal bilaterally and moist oral mucous membranes Head and Scalp: normocephalic Resp normal respiratory effort, no retractions, no use of accessory muscles and clear to auscultation bilaterally Auscultation: Negative for crackles, rales, rhonchi or wheezes Cardio regular rate, regular rhythm, S1 normal heart sound, S2 normal heart sound, no murmurs, no rub, no gallops, no clicks and no JVD GI soft to palpation and non-distended GI Narrative: Bowel sounds are hypoactive but present today with me clamping NG, incision is clean dry and intact and right flank Auscultation: hypoactive bowel sounds Palpation: tender and guarding Extremity normal to inspection Extremity Narrative: No cyanosis or clubbing but trace bilateral upper extremity and lower extremity edema distally General Extremity: edema Peripheral Pulses: Yes pulses 2+ throughout Neuro oriented x3, moves all extremities and no focal motor deficits Sensorium / Orientation: awake and alert Speech: speech normal Assessment & Plan Assessment/Plan (1) Acute anemia: (2) Renal abscess: (3) MIKAYLA (acute kidney injury): (4) Leukocytosis: QUALIFIERS: Leukocytosis type: unspecified Qualified Code(s): D72.829 - Elevated white blood cell count, unspecified (5) Cystic kidney disease: PLAN: 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 Reilly -12/30/2020 patient underwent laparoscopic converted to open renal exploration of cyst decortication and evacuation of abscess from the kidney with placement of surgical drains -Cultures are currently showing group A streptococcus -Fever with repeat stat CAT scan last evening showing worsening abscess -Plan is now to do the surgery here as transfer has been difficult and no bed availability with low priority -Plan for OR on Friday per urology's note on 01/07/2021 -Management per primary service Group A strep renal abscess -Appears to be pansensitive -White count continues to improve and is down to 15,000 -Patient was febrile overnight -Repeat pancultures are negative -Continue cefazolin per ID -ID following-appreciate input Ileus -NG tube remains in but continues to be clamped -Mild increase in distention but no nausea or vomiting -Patient with improved bowel sounds but no bowel activity at this time -Patient remains n.p.o. -Patient is on TPN and I will therefore discontinue IV fluids as the patient is getting volume overloaded -Lasix x 1 40 mg IV push dose today reevaluate tomorrow -Continue IV pain medication -General surgery consult in place Leukocytosis -Down to 13.8 today -Repeat cultures remain negative Thrombocytosis -Anticipate this to be reactive -Continue to monitor Acute anemia -Appears to be stabilizing -1 unit of packed red blood cell given on 01/01/2021 and 1 unit on 01/03/2021 -Hemoglobin remaining stable -Repeat CBC in a.m. Elevated blood pressure -All pressures have been elevated unclear if this is related to pain or underlying hypertension -hydralazine 10 mg every 6 hours -Add labetalol 20 mg every 6 hours with hold parameters -Continue to monitor MIKAYLA -Resolved DVT prophylaxis -SCDs -Ambulation CODE STATUS -Full code Charges/Coding Visit Charges Inpatient E&M: 00214 Subs Hosp L2
[2021-01-07] MEDS: Furosemide 40 MG/4 ML Vial IV (14:09)
[2021-01-07] MEDS: Labetalol (Prefilled) 20 MG/4 ML IV (18:03)
[2021-01-07] MEDS: Acetaminophen 500 MG Tablet PO (18:05)
[2021-01-07 18:46] LABS: Bedside Glucose 126 mg/dL (70-110)
[2021-01-07] MEDS: 0.9% Saline Lock 10 ML Syringe IV (20:03)
[2021-01-07] MEDS: Ondansetron 4 MG/2 ML Vial IV (20:03)
[2021-01-08 13:04] LABS: Pathologist Review Reviewed
[2021-01-08 13:04] LABS: Pathologist Review Reviewed
[2021-01-08 13:05] LABS: Pathologist Review Reviewed
--- NOTE | 2021-01-10 10:04 | PCM.DC.SUM ---
Providers Date of Admission: 12/26/20 Consultations 12/27/20 04:28 Consult: Hospitalist Routine Consulting Provider: Ar Reilly Reason for Consult: MEDICAL MANAGEMENT EMERGENT Consult: No MD Notified: Yes Date Notified: 12/27/20 Time Notified: 04:28 Method of Notification: Text 01/02/21 07:13 Consult: Infectious Disease Routine Consulting Provider: Galileo Olivarez Reason for Consult: Renal abscess with worsening white count EMERGENT Consult: No MD Notified: Yes Date Notified: 01/02/21 Time Notified: 07:14 Method of Notification: Answering Service Reason For Visit: INFECTED RENAL MASS Diagnosis Discharge Diagnosis (1) Acute anemia: Status: Acute Code(s): D64.9 - Anemia, unspecified (2) Renal abscess: Status: Acute Code(s): N15.1 - Renal and perinephric abscess (3) MIKAYLA (acute kidney injury): Status: Acute Code(s): N17.9 - Acute kidney failure, unspecified (4) Leukocytosis: Status: Acute Code(s): D72.829 - Elevated white blood cell count, unspecified Qualifiers: Leukocytosis type: unspecified Qualified Code(s): D72.829 - Elevated white blood cell count, unspecified (5) Cystic kidney disease: Status: Acute Code(s): Q61.9 - Cystic kidney disease, unspecified (6) Renal cell carcinoma of right kidney: Status: Acute Code(s): C64.1 - Malignant neoplasm of right kidney, except renal pelvis (7) Postoperative ileus: Status: Acute Code(s): K91.89 - Other postprocedural complications and disorders of digestive system; K56.7 - Ileus, unspecified (8) Acute respiratory failure with hypoxia: Status: Acute Code(s): J96.01 - Acute respiratory failure with hypoxia (9) Sepsis: Status: Acute Code(s): A41.9 - Sepsis, unspecified organism Hospital Course Summary of Care Provided Hospital Course: Admitted on 12/28/2020 with large Abscess in Mass with severe pain, transfer from outside ER from [facility] -CT-guided drainage with nephrostomy tube placement on 12/29/[address] 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 -Cultures are currently showing group A streptococcus -intermittent Fevers with repeat stat CAT scan during stay (waiting for transfer) showed worsening abscess -Developed post op ilieus, NG,Tube and TPN for nutrition. -Transfused 3 units of PRBC after Surgery then stable -WBC normalized and Cr normalized while waiting for transfer to [place] -Transfer has been difficult and no bed availability with low priority, since patient not in ICU, Called multiple times to update status and condition stabilized but did not improve, prolonged ileus b/c abscess - Finally bed became avaliable and patient transfered with records to [place] on 01/05/2021 for continued mangement. -On the day of his transfer the patient was clinically stable his vitals were stable, he was awake and alert talking interactive normal neurological exam his head was normal neck was soft, lungs were clear heart was regular his abdomen was soft and benign his incision was clean and intact with sharan no erythema or signs of infection he had a few bowel sounds he did report a few bowel gas noises and passing some gas but still had an ileus. Penis and testicles were normal extremities were normal no signs of clubbing edema, some slight pitting edema in the legs. He has been ambulating in the hallways have been interacting with his family and the nursing staff normally. His white count had normalized, his creatinine was normal, his abdomen was soft slightly distended he had an NG tube for decompression he was on TPN he remained on appropriate broad-spectrum antibiotics with vancomycin and Zosyn per infectious disease recommendations he was agreeable with the transfer to [place] for further management for a completion nephrectomy as this would be a very difficult surgery as this was explained to the patient and he was clinically stable with no signs of impending sepsis and no signs of any complication from the prior surgery. He does continue to have problems because of the abscess within the kidney in the right kidney which turned out to be an abscess with renal cell carcinoma. Physical Exam Narrative see notes above Weight / BMI Weight Weight: 117.8 kg Body Mass Index (BMI) 35.6 ABG / Lab / Microbiology Data Result Diagrams: 01/07/21 05:20 01/07/21 06:40 Microbiology: Microbiology 01/02/21 07:00 Blood Culture (Wb) - Anticubital Left Blood Culture - Final No growth in 5 days. 01/02/21 07:55 Blood Culture (Wb) - Left Hand Blood Culture - Final No growth in 5 days. 01/06/21 05:10 Gastric Fluid/Contents Gastric Occult Blood - Final Occult Blood Positive 01/02/21 13:30 Urine, Clean Catch Urine Culture - Final Culture exhibits no growth. 12/29/20 16:17 Cyst - Other Gram Stain - Final 12/29/20 16:17 Cyst - Other Wound Culture - Final Streptococcus group A 12/29/20 16:17 Cyst - Other Anaerobic Culture - Final No anaerobic bacteria isolated. 12/26/20 22:20 Blood Culture (Wb) - Left Forearm Blood Culture - Final No growth in 5 days. 12/26/20 22:16 Blood Culture (Wb) - Anticubital Left Blood Culture - Final No growth in 5 days. 12/27/20 01:10 Fluid - Other Gram Stain - Final 12/27/20 01:10 Fluid - Other Body Fluid Culture - Final Streptococcus group A 12/27/20 01:10 Fluid - Other Anaerobic Culture - Final No anaerobic bacteria isolated. 12/26/20 22:00 Urine, Midstream Urine Culture - Final Culture exhibits no growth. 12/26/20 11:50 Urine, Clean Catch Urine Culture - Final Culture exhibits no growth. 12/27/20 01:30 Nasal Secretion SARS-CoV-2 Antigen (Rapid) - Final Meaningful Use Info Meaningful Use Diagnoses (Choose all that apply): None applicable Discharge Plan Admission Admit Date/Time: 12/26/20 12:50 Primary Reason for Your Visit: renal abscess, RCC Attending Provider: Ar Reilly Consulting Providers: Ar Reilly ; Galileo Olivarez Discharge Orders/Prescriptions Referrals / Follow Up: Ar Reilly MD [STAFF PHYSICIAN] - Disposition Disposition (needs filled in before D/C Order can be placed): [facility]
== END 2021-01-07 21:15 | disposition short-term general hospital (02) | DRG 853 ==
PROVIDERS: Internal Medicine; Admitting Provider Urology; Visit Provider Urology
PROC: 8E0W4CZ Robotic Assisted Procedure of Trunk Region, Percutaneous Endoscopic Approach (ICD-10-PCS; CPT 50541; principal; 2020-12-29 13:10)
DX: A41.9 Sepsis, unspecified organism (principal); N15.1 Renal and perinephric abscess; J96.01 Acute respiratory failure with hypoxia; Q61.9 Cystic kidney disease, unspecified; C64.1 Malignant neoplasm of right kidney, except renal pelvis; K56.7 Ileus, unspecified; N17.9 Acute kidney failure, unspecified; E87.0 Hyperosmolality and hypernatremia; K91.89 Other postprocedural complications and disorders of digestive system; D64.9 Anemia, unspecified; E66.9 Obesity, unspecified; Z68.36 Body mass index [BMI] 36.0-36.9, adult; Z53.31 Laparoscopic surgical procedure converted to open procedure; B95.0 Streptococcus, group A, as the cause of diseases classified elsewhere
CPT/HCPCS: 36415; 36569; 71045; 71046; 74018; 74019; 74176; 75989; 80048; 80053; 80202; 81001; 82247; 82248; 82271; 82607; 82728; 82962; 83540; 83550; 83605; 83735; 84100; 84145; 84478; 85014; 85018; 85025; 85027; 85045; 85610; 86850; 86900; 86901; 86920; 86922; 87015; 87040; 87070; 87075; 87077; 87086; 87102; 87116; 87176; 87186; 87205; 87206; 87426; 88108; 88305; 88307; 88313; 93005; 94640; 94762; 97802; 97803; 99251; J7030; J7040; J7050; J7120; P9016; A4216; G0463; J1940; J2405